=== PATIENT | female | born 1980 | race Caucasian/White ===

== ENCOUNTER 2022-03-26 12:39 | Outpatient (CLI) | payer MEDICAID, SELFPAY ==
--- NOTE | 2022-03-26 14:39 | W.ANESCHARGE ---
Anesthesia Charges Start Date/Time Anesthesia Start Date: 03/26/22 Anesthesia Start Time: 13:47 Stop Date/Time Anesthesia Stop Date: 03/26/22 Anesthesia Stop Time: 14:35 Summary Emergency: No
--- NOTE | 2022-03-26 14:42 | W.ANESCHARGE ---
Anesthesia Charges Start Date/Time Anesthesia Start Date: 03/26/22 Anesthesia Start Time: 13:47 Stop Date/Time Anesthesia Stop Date: 03/26/22 Anesthesia Stop Time: 14:35 Summary Emergency: No
== END 2022-03-26 12:40 | disposition home or self-care (01) ==
PROVIDERS: PCP Family Medicine; Visit Provider Surgery
DX: R19.7 Diarrhea, unspecified (principal); K63.5 Polyp of colon; R11.15 Cyclical vomiting syndrome unrelated to migraine
CPT/HCPCS: 43239; 45380; 45385; 813; 88305; J2704

== ENCOUNTER 2022-06-03 15:34 | Outpatient (CLI) | payer MEDICAID, SELFPAY ==
[2022-06-03 09:24] LABS: Chloride* 101 mmol/L (96-114)
[2022-06-03 09:25] LABS: Albumin* 4.6 g/dL (3.3-5.0); Potassium* 4.4 mmol/L (3.6-5.1); Sodium* 135 mmol/L (135-149)
[2022-06-03 09:27] LABS: Carbon Dioxide* 25 mmol/L (20-32); Cholesterol* 244 mg/dL (90-199); Creatinine* 0.6 mg/dL (0.5-1.5); Estimated Glomerular Filt Rate 116 ml/min
[2022-06-03 09:28] LABS: Alanine Aminotransferase* 21 U/L (4-35); Alkaline Phosphatase* 62 U/L (40-150); Aspartate Amino Transferase* 30 U/L (12-35); Bilirubin Total* 1.1 mg/dL (0.1-1.5); Blood Urea Nitrogen* 12 mg/dL (5-24); Glucose* 102 mg/dL (60-115); Total Protein* 7.3 g/dL (6.0-8.3); Triglycerides* 176 mg/dL (40-149)
[2022-06-03 09:29] LABS: Calcium* 10.1 mg/dL (8.4-10.6); HDL Cholesterol* 80 mg/dL (>=50); LDL Cholesterol Calculated 129 mg/dL (<100)
[2022-06-03 09:45] LABS: Free T4 Free Thyroxine* 0.71 ng/dL (0.70-1.85)
[2022-06-04 17:03] LABS: Estradiol Premenol Female 30 pg/mL
[2022-06-05 02:31] LABS: Follicle Stimulating Hormone 15.7 IU/L; Vitamin D, 1,25-Dihydroxy 28.4 pg/mL (19.9-79.3)
== END 2022-06-03 15:35 | disposition home or self-care (01) ==
PROVIDERS: PCP Family Medicine; Visit Provider Obstetrics & Gynecology
DX: Z00.00 Encounter for general adult medical examination without abnormal findings (principal); R63.5 Abnormal weight gain; R53.83 Other fatigue; Z13.6 Encounter for screening for cardiovascular disorders
CPT/HCPCS: 80053; 80061; 82652; 82670; 83001; 84439; 84443; 87086

== ENCOUNTER 2022-08-02 13:30 | Outpatient (CLI) | payer MEDICAID, SELFPAY ==
--- NOTE | 2022-08-02 13:45 | CRLHL7_ITS ---
For Patients: As a result of the Century Cures Act, medical imaging exams and procedure reports are released immediately into your electronic medical record. You may view this report before your referring provider. If you have questions, please contact your health care provider. Indication: Prior trauma. Technique: Multiplanar, multisequence MRI of the brain was performed without intravenous contrast. Comparison: CT head 03/31/2021. MRI brain 06/28/2016. Findings: The corpus callosum, optic chiasm, pituitary gland, clivus, brainstem and cerebellum appear intact. The craniocervical junction appears preserved. 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 There is no restricted diffusion. No intracranial hemorrhage. The ventricles are proportionate to the cerebral sulci. The 4th ventricle appears midline. The basal cisterns appear patent. No abnormal extra-axial fluid collection identified. Scattered T2 FLAIR hyperintense foci within the subcortical and periventricular white matter, which are nonspecific. There is no intracranial mass, abnormal mass-effect or midline shift identified. Major intracranial vascular flow voids appear grossly intact. Both globes are preserved. Mild paranasal sinus mucosal disease. Impression: 1. No acute intracranial process. 2. Nonspecific scattered T2 FLAIR hyperintense foci within the subcortical and periventricular white matter. Differential considerations include sequela of migraine headaches or chronic ischemic microvascular disease. Dictated by Freddie Scott MD @ 08/02/2022 3:26:35 PM (Electronically Signed)
== END 2022-08-02 13:31 | disposition home or self-care (01) ==
LOC: MRI 13:31
PROVIDERS: PCP Family Medicine; Visit Provider Family Medicine
DX: R41.89 Other symptoms and signs involving cognitive functions and awareness (principal); F07.81 Postconcussional syndrome
CPT/HCPCS: 70551

== ENCOUNTER 2022-08-07 11:15 | Outpatient (CLI) | payer MEDICAID, SELFPAY ==
--- NOTE | 2022-08-07 11:30 | CRLHL7_ITS ---
For Patients: As a result of the Century Cures Act, medical imaging exams and procedure reports are released immediately into your electronic medical record. You may view this report before your referring provider. If you have questions, please contact your health care provider. BILATERAL SCREENING MAMMOGRAM WITH COMPUTER-AIDED DETECTION AND TOMOSYNTHESIS TECHNIQUE: CC and MLO views were obtained. These mammographic images have been obtained using full-field digital technique. These mammographic images were interpreted with the benefit of computer-aided detection. Breast Tomosynthesis was used in this interpretation. COMPARISON FILM: Baseline. FINDINGS: The breasts are heterogeneously dense, which may obscure small masses IMPRESSION: There is no radiographic evidence for malignancy. ASSESSMENT: BI-RADS Category 1: Negative RECOMMENDATION: Routine screening mammogram in 1 year. A lay language report of this examination will be provided to the patient. Benedict Cuello M.D. Diagnostic Radiologist [email or web address] Transcribed: 3:52 pm DW/Dictated by: Benedict Cuello MD @ 08/07/2022 3:51:00 PM (Electronically Signed)
== END 2022-08-07 11:16 | disposition home or self-care (01) ==
PROVIDERS: PCP Family Medicine; Visit Provider Obstetrics & Gynecology
DX: Z12.39 Encounter for other screening for malignant neoplasm of breast (principal); R92.2 Inconclusive mammogram
CPT/HCPCS: 77063; 77067

== ENCOUNTER 2022-09-23 09:40 | Outpatient (CLI) | payer MEDICAID, SELFPAY | END 2022-09-23 09:41 | disposition home or self-care (01) | LOC: FBOREF 09:41 | PROVIDERS: PCP Family Medicine; Visit Provider Family Medicine | DX: E03.9 Hypothyroidism, unspecified (principal) | CPT/HCPCS: 84443 ==

== ENCOUNTER 2023-04-07 11:54 | Outpatient (CLI) | payer MEDICAID, SELFPAY | END 2023-04-07 11:55 | disposition home or self-care (01) | PROVIDERS: PCP Family Medicine; Visit Provider Family Medicine | DX: E03.9 Hypothyroidism, unspecified (principal) | CPT/HCPCS: 84443 ==

== ENCOUNTER 2023-04-17 12:46 | Outpatient (CLI) | payer MEDICAID, SELFPAY ==
--- NOTE | 2023-04-17 13:00 | CRLHL7_ITS ---
For Patients: As a result of the Century Cures Act, medical imaging exams and procedure reports are released immediately into your electronic medical record. You may view this report before your referring provider. If you have questions, please contact your health care provider. CLINICAL HISTORY: Pelvic pain TECHNIQUE: Real time, grant scale images were acquired of the pelvis using a transabdominal and transvaginal approach. Color Doppler analysis was performed of the ovaries. FINDINGS: The uterus measures 10.7 x 5.5 x 6.4. Endometrium measures 1 cm. Right fundal fibroid measuring 1.8 x 1.4 x 1.6 centimeters right ovary measures 5.8 x 2.4 x 3.2 centimeters. Anechoic right ovarian cysts measuring up to 3.4 centimeters. Normal blood flow to the right ovary by color Doppler. Left ovary measures 2.5 x 2 x 1 x 1.5 centimeters. Normal blood flow to left ovary. Small amount of free fluid in the pelvis. IMPRESSION: Right ovarian cyst measuring up to 3.4 centimeters normal blood flow to both ovaries. Tiny amount of fluid in the pelvis. Dictated by Archana Foster MD @ 04/19/2023 12:23:52 PM (Electronically Signed)
== END 2023-04-17 12:47 | disposition home or self-care (01) ==
LOC: US 12:47
PROVIDERS: PCP Family Medicine; Visit Provider Obstetrics & Gynecology
DX: R10.2 Pelvic and perineal pain (principal); N83.201 Unspecified ovarian cyst, right side; G89.29 Other chronic pain
CPT/HCPCS: 76830; 76856; 87086; 93976

== ENCOUNTER 2023-11-07 08:18 | Outpatient (CLI) | payer MEDICAID, SELFPAY | END 2023-11-07 08:19 | disposition home or self-care (01) | LOC: NFLDREF 08:19 | PROVIDERS: PCP Family Medicine; Visit Provider Family Medicine | DX: E03.9 Hypothyroidism, unspecified (principal) | CPT/HCPCS: 84443 ==

== ENCOUNTER 2024-03-05 09:23 | Outpatient (CLI) | payer MEDICAID, SELFPAY ==
--- OUTSIDE RECORDS SUMMARY | 2024-03-05 09:26 | XMS_ITS | Referral Summary ---
Author Organization [facility] Address [address] [place] [address] Care Team Providers Care Team Sports Sales Associate Name Role Phone No Ref-Primary, Physician Primary Care Provider Lisa Spencer MD Unavailable [phone] Lisa Spencer MD Unavailable [phone] Allergies Active Allergy Reactions Criticality Noted Date Comments No Known Drug Allergy 12/22/2006 Medications Medication Sig Dispensed Refills Start Date End Date Status CHANTIX STARTING MONTH DORA 0.5 MG X 11 & 1 MG X 42 OR MISCIndications:Tob acco use disorder 0.5mg daily for 3 days, then 0.5mg twice daily for 4 days, then 1mg twice daily. Take with food and stop smoking 7 days after treatment begins. 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 Toxic effect of venom(989.5) 02/20/2007 Immunizations Name Administration Dates Next Due HepB 04/21/2006,12/04/2005,10/08/2005 Hepatitis B, Adult 04/21/2006,12/04/2005, 006 Influenza (H1N1) 09/20/2009 Influenza (IIV3) PF 09/20/2009,06/20/2008,2002 Influenza, seasonal, injectable, PF 09/20/2009 TD,PF 7+ (Tenivac) 10/21/2002 TDAP (Adacel,Boostrix) 06/02/2012 Td (Adult), Adsorbed 10/21/2002 Social History Tobacco Use Types Packs/Day Years Used Date Smoking Tobacco: Former Cigarettes 0.3 7 0 09/25/1999 - 09/25/2006 Smokeless Tobacco: Never Tobacco Cessation:Counseling Given: Not Answered Comments:Quit 2-07 PHQ-2 Answer Date Recorded PHQ-2 Score 0 03/17/2023 Adolescent Education Answer Date Record ed Getting School Help Needed Not on file 05/18 Sex and Gender Information Value Date Recorded Sex Assigned at Not on file Gender Identity Not on file Sexual Orientation Not on file Last Filed Vital Signs Vital Sign Reading Time Taken Comments Blood Pressure 114/60 02/20/2007 1:50 PM CDT Pulse 72 02/20/2007 1:50 PM CDT Temperature 36.6 ??C (97.8 ??F) 02/20/2007 1:50 PM CD T Respiratory Rate 14 02/20/2007 1:50 PM CDT Oxygen Saturation - - Inhaled Oxygen Concentration - - Weight 55.2 kg (121 lb 12.8 oz) 02/20/2007 1:50 PM CDT Height 163.8 cm (5' 4.5) 02/20/2007 1:50 PM CDT Body Mass Index 20.58 02/20/2007 1:50 PM CDT Plan of Treatment Not on file Procedures Procedure Name Priority Date/Time Associated Diagnosis Comments T4 FREE Routine 03/11/2023 8:46 AM CDT Other specified hypothyroidism GLUCOSE (EXTERNAL RESULT) Routine 06/03/2022 8:10 AM CDT LIPID PANEL (EXTERNAL RESULT) Routine 06/03/2022 8:10 AM CDT from Last 3 Months or Most Recently Relevant to Health Maintenance Results * T4, free (03/11/2023 8:46 AM CDT) Free T4 1.22 0.90 - 1.70 ng/dL 03/11/2023 3:44 PM CDT [facility] Blood BLOOD SPECIMEN / Unknown Venipuncture / Unknown 03/11/2023 8:46 AM CDT 03/11/2023 8:46 AM CDT Lisa Spencer MD LAB - BLOOD ORDER [facility] Core Lab [address] [facility], [address] [place] [id number], [facility] [phone] * (ABNORMAL) Lipid Panel (External Result) (06/03/2022 8:10 AM CDT) [facility] Cholesterol (External) 244(A) 90 - 199 mg/dL [facility] Triglycerides (External) 176(A) 40 - 149 mg/dL [facility] HDL Cholesterol (External) 80 >=50 mg/dL [facility] LDL Cholesterol Calculated (External) 129(A) <100 mg/dL [facility] Blood 06/03/2022 8:10 AM CDT [facility] - 06/03/2022 8:10 AM CDT [facility] RES[facility] Provider Outside LAB - HIM EXTERNAL R ESULT [facility] [address] [place] [address], [facility] [phone] * (ABNORMAL) Glucose (External Result) (06/03/2022 8:10 AM CDT) [facility] Glucose (External) 102(A) 60 - 115 mg/dL [facility] Blood 06/03/2022 8:10 AM CDT [facility] - 06/03/2022 8:10 AM CDT [facility] RESULT Provider Outside LAB - HIM EXTERNAL R ESULT [facility] [address] [place] [address], [facility] [phone] from Last 3 Months or Most Recently Relevant to Health Maintenance Care Teams Team Sports Sales Associate Relationship Specialty Start Date End Date No Ref-Primary, Physician PCP - General 06/13/22 Lisa Spencer MD [address] [facility] [address] [place] [address] Hospitalist Endocrinology, Diabetes, and Metabolism 06/13/22 Lisa Spencer MD [address] [place], [place] [address] Assigned Endocrinology Provider 10/19/22
--- OUTSIDE RECORDS SUMMARY | 2024-03-05 09:26 | XMS_ITS | Clinical Summary ---
Author Organization [facility] Address [address] [place] [address] Care Team Providers Care Hand Shoes Sewer Name Role Phone No Ref-Primary, Physician Primary Care Provider Lisa Spencer MD Unavailable [phone] Lisa Spencer MD Unavailable Allergies Active Allergy Reactions Criticality Noted Date [...] 02/20/2007 1:50 PM CDT Plan of Treatment Health Maintenance Due Date Last Done Comments ADVANCE CARE PLANNING 1981 ANNUAL REVIEW OF HM ORDERS 1981 MAMMO SCREENING 1981 YEARLY PREVENTIVE VISIT 1981 HIV SCREENING 1996 HEPATITIS C SCREENING 10/29/1999 PAP 2002 DTAP/TDAP/TD IMMUNIZATION (3 - Td or Tdap) 06/02/2022 06/02/2012, 10/21/2002, 10/21/2002 COVID-19 Vaccine ( season) 2023 PHQ-2 (once per calendar year) 2023 03/17/2023, 10/15/2022 TSH W/FREE T4 REFLEX 03/11/2024 03/11/2023, 03/11/2023, 10/22/2022, Additional history exists INFLUENZA VACCINE (Season Ended) 2024 09/20/2009, 09/20/2009, 09/20/2009, Additional history exists GLUCOSE 06/03/2025 06/03/2022, 11/25, 11/18/2004 LIPID 06/03/2027 06/03/2022 HEPATITIS B IMMUNIZATION Completed 006, 04/21/2006, 12/04/2005, Additional history exists HPV IMMUNIZATION Aged Out No longer e ligible based on patient's age to complete this topic IPV IMMUNIZATION Aged Out No longer e ligible based on patient's age to complete this topic MENINGITIS IMMUNIZATION Aged Out No l onger eligible based on patient's age to complete this topic Pneumococcal Vaccine: Pediatrics (0 to 5 Years) and At-Risk Patients (6 to 64 Years) Aged Out No longer eligible based on patient's age to complete this topic RSV MONOCLONAL ANTIBODY Aged Out No l onger eligible based on patient's age to complete this topic Procedures Procedure Name Priority Date/Time Associated Diagnosis [...] - 1.70 ng/dL 03/11/2023 3:44 PM CDT [facility] Blood BLOOD SPECIMEN / Unknown Venipuncture / Unknown 03/11/2023 8:46 AM CDT 03/11/2023 8:46 AM CDT Lisa Spencer MD LAB - BLOOD ORDER [facility] Lab [address] [facility], [address] [address], [facility] [phone] * (ABNORMAL) Lipid Panel (External Result) (06/03/2022 8:10 AM CDT) Cholesterol (External) 244(A) 90 - 199 mg/dL [facility] Triglycerides (External) 176(A) 40 - 149 mg/dL [facility] HDL Cholesterol (External) 80 >=50 mg/dL [facility] LDL Cholesterol Calculated (External) 129(A) <100 mg/dL [facility] Blood 06/03/2022 8:10 AM CDT [facility] - 06/03/2022 8:10 AM CDT [facility] RESULT Provider Outside LAB - HIM EXTERNAL R ESULT [facility] [address] [place] [address], [facility] [phone] * (ABNORMAL) Glucose (External Result) (06/03/2022 8:10 AM CDT) Glucose (External) 102(A) 60 - 115 mg/dL [facility] Blood 06/03/2022 8:10 AM CDT [facility] - 06/03/2022 8:10 AM CDT [facility] Provider Outside LAB - HIM EXTERNAL R ESULT [facility] [address] [place] [address], [facility] [phone] from Last 3 Months or Most Recently Relevant to Health Maintenance Care Teams Hand Shoes Sewer Relationship Specialty Start Date End Date No Ref-Primary, Physician PCP - General 06/13/22 Lisa Spencer MD [address] [facility] [address] [place] [address] Hospitalist Endocrinology, Diabetes, and Metabolism 06/13/22 Lisa Spencer MD [address] [place], [place] [address] Assigned Endocrinology Provider 10/19/22
--- OUTSIDE RECORDS SUMMARY | 2024-03-05 09:27 | XMS_ITS | Clinical Summary ---
Author Organization [employer] [facility] Address [place], [place] [address] Care Team Providers Care Skiver Box Toe Name Role Phone Lola Green David Allen MD Primary Care Provider + Allergies Active Allergy Reactions Criticality Noted Date Comments Dtap-Ipv Component 1 Of 2 (Pf) Myalgia 06/11 severe Medications Medication Sig Dispensed Refills Start Date End Date Status ALPRAZolam (XANAX) 0.5 mg tablet Take 1 tablet by mouth at bedtime if needed. 0 06/11/2019 Active Active Problems Problem Noted Date Diagnosed Date Tibialis tendonitis 04/27/2012 Immunizations Name Administration Dates Next Due Influenza, IIV3 (Age >=3 years) 06/23/2003 Social History Tobacco Use Types Packs/Day Years Used Date Smoking Tobacco: Former Cigarettes Q uit: 05/21/2006 Smokeless Tobacco: Never Tobacco Cessation:Counseling Given: Yes Alcohol Use Standard Drinks/Week Comments Not Asked 0 (1 standard drink = 0.6 oz pur e alcohol) PHQ-2 Answer Date Recorded PHQ-2 Score 2 07/28/2019 Sex and Gender Information Value Date Recorded Sex Assigned at Not on file Gender Identity Not on file Sexual Orientation Not on file Obstetrics History Last Filed Vital Signs Vital Sign Reading Time Taken Comments Blood Pressure 110/76 06/11/2019 3:36 PM CDT Pulse 70 06/11/2019 3:36 PM CDT Temperature 36.9 ??C (98.4 ??F) 04/22/2012 8:08 AM CD T Respiratory Rate - - Oxygen Saturation 96% 06/11/2019 3:36 PM CDT Inhaled Oxygen Concentration - - Weight 77.5 kg (170 lb 12.8 oz) 06/11/2019 3:36 PM CDT Height 164.5 cm (5' 4.76) 06/11/2019 3:36 PM CD T Body Mass Index 28.63 06/11/2019 3:36 PM CDT Plan of Treatment Health Maintenance Due Date Last Done Comments Tdap 1992 HIV for age 15-65 1996 Hepatitis C screening for age 18-79 10/29/1999 Tetanus booster 2001 BMI (ht and wt on same day) for age 18+ 06/11/2020 06/11/2019 Depression screening for age 12+ 07/28/2020 07/28/2019 Pap test for age 21-65 10/24/2022 , 10/25/2019, 11/06/2015, Additional history exists COVID-19 vaccine series ( season) 2023 Influenza for age 9-49 04/25/2024 06/23/2003 Pneumococcal series for age 6-64 Aged Out No longer eligible based on patient's age to complete this topic Procedures Procedure Name Priority Date/Time Associated Diagnosis Comments STOCK DIGGER THIN PREP PAP SCREEN IMAGED Routine 10/25/2019 10:00 AM SENIOR HARDWARE ENGINEER from Last 3 Months or Most Recently Relevant to Health Maintenance Results * STOCK DIGGER THIN PREP PAP SCREEN IMAGED (10/25/2019 10:00 AM SENIOR HARDWARE ENGINEER) Case Report Gynecologic Cytology Report ? Case: [id number] ? Authorizing Provider: ??Jess Lomeli ??Collected: ? 10/25/2019 1000 ? M, MD ? Ordering Location: ? [facility] ?Received: ?10/26/2019 1609 ? First Screen: ?Sg Reddy ? Specimen: ?STOCK DIGGER ThinPrep Vial Screening, Cervical/Vaginal ? 11/02/2019 4:07 PM CDT [facility] INTERPRETATION/ RESULT NEGATIVE FOR INTRAEPITHELIAL LESION OR MALIGNANCY (NIL) (none) 11/02/2019 4:07 PM CDT [facility] IMEN ADEQUACY Satisfactory for evaluation Endocervical component present 11/02/2019 4:07 PM CDT [facility] HPV REQUEST HPV and PAP 11/02/2019 4:07 PM CDT [facility] Date of LMP 10/18/2019 11/02/2019 4:07 PM CDT [facility] Last Pap Date 11/06/2015 11/02/2019 4:07 PM CDT [facility] Additional Information 11/02/2019 4:07 PM CDT [facility] Comment: Interpreted at [facility], Central Laboratory - [address], [place] [address] Automated Review Successful 11/02/2019 4:07 PM CDT [facility] Comment:Specimen processed s uccessfully by automated shredder tender peat device, ThinPrep Imaging System, [employer] ANCILLARY TESTING STOCK DIGGER HPV Ordered, Please see separate report 11/02/2019 4:07 PM CDT [facility] Note The pap test is a screening technique, not a diagnostic procedure. It is used primarily to screen for squamous cancers and precursor lesions. Published studies have shown that it is subject to both false negative and false positive results. The pap test should not be used as the sole means to diagnose or exclude pre-malignant and malignant lesions. 11/02/2019 4:07 PM CDT [facility]-C ENTRAL LABORATORY Other (Cervical/Vagina l) 10/25/2019 10:00 AM SENIOR HARDWARE ENGINEER 10/26/2019 4:09 PM SENIOR HARDWARE ENGINEER Jess Lomeli MD PATHOLOGY/ CYTOLOGY [facility] [address] [place] [address], from Last 3 Months or Most Recently Relevant to Health Maintenance Additional Health Concerns Infection Onset Date Last Indicated Rule-Out C.diff 06/14/2019 06/14/2019 Care Teams Skiver Box Toe Relationship Specialty Start Date End Date Benedict Haider MD [address] [place] [address] PCP - General Family Practice 06/11/19 Lola Cheng 03/30/18
--- OUTSIDE RECORDS SUMMARY | 2024-03-05 09:27 | XMS_ITS | Clinical Summary ---
Author Organization [facility] Address [address] [place] [address] Care Team Providers Care Jump Iron Machine Presser Name Role Phone Gisela Steiner MD Primary Care Provider [phone] Source Comments You are receiving this document as you are listed as the primary care provider,follow-up provider, or the patient has been referred to you for consultation.This is in compliance with the Medicare andOhio[facility] Hospitalca[facility] EHR Incentive Program,which states Providers who transition their patient to another setting of careor provider of care or refers their patient to another provider of care shouldprovide summary care record for each transition of care or referral. [employer] Allergies Active Allergy Reactions Criticality Noted Date Comments Bupropion 12/19/2004 PN: LW Reaction: SHORTNESS OF BREATH Ramelteon Other, see comments High 04/11/2023 Medications Medication Sig Dispensed Refills Start Date End Date Status unknown medication Indications: PN: 09/17/2004 Active unknown medication Indications: PN: 01/09/2005 Active ALPRAZolam (XANAX) 0.5 MG tablet TK 1 T PO QHS PRF LONE LEAD LINEMAN 04/06/2020 Active DULoxetine (CYMBALTA) 60 MG capsule Take 60 mg by mouth daily. Active clindamycin (CLEOCIN T) 1 % external solution Apply 1 mL topically two times a day. 05/15/2022 Active diphenoxylate-atrop ine (LOMOTIL) 2.5-0.025 MG tablet Take 1 Tablet by mouth three times a day as needed. 04/18/2022 Active eszopiclone (LUNESTA) 2 MG tablet Take 2 mg by mouth daily at bedtime. 06/19/2022 Active meclizine (ANTIVERT) 25 MG tablet Take 25 mg by mouth three times a day as needed. 05/15/2022 Active traMADol (ULTRAM) 50 MG tablet Take 50 mg by mouth every 6 hours as needed. 06/19/2022 Active levonorgestrel (MIRENA) 20 MCG/DAY IUD 1 Each by Intrauterine route once. Active levothyroxine (SYNTHROID) 75 MCG tablet Take 1 Tablet (75 mcg) by mouth daily. 09/25/2022 Active naltrexone 1 mg/mL or susp 0.5 mg po nightly for 5 days, then increase by 0.5 mg every 5 days nightly until at 5 mg po nightly 180 mL 1 05/08/2023 Active Active Problems Problem Noted Date Diagnosed Date Anxiety 04/24/2020 Immunizations Name Administration Dates Next Due Flu Vac (3+ yrs) 06/23/2003 Social History Tobacco Use Types Packs/Day Years Used Date Smoking Tobacco: Former Cigarettes Smokeless Tobacco: Never Tobacco Cessation:Counseling Given: Not Answered Alcohol Use Standard Drinks/Week Comments Not Currently 0 (1 standard drink = 0.6 oz pur e alcohol) Sex and Gender Information Value Date Recorded Sex Assigned at Not on file Gender Identity Not on file Sexual Orientation Not on file Last Filed Vital Signs Vital Sign Reading Time Taken Comments Blood Pressure 99/72 09/12/2022 8:59 AM DYE BECK REEL OPERATOR Pulse 85 09/12/2022 8:59 AM DYE BECK REEL OPERATOR Temperature - - Respiratory Rate - - Oxygen Saturation - - Inhaled Oxygen Concentration - - Weight 76.2 kg (168 lb) 09/12/2022 8:59 AM DYE BECK REEL OPERATOR Height 162.6 cm (5' 4) 09/12/2022 8:59 AM DYE BECK REEL OPERATOR Body Mass Index 28.84 09/12/2022 8:59 AM DYE BECK REEL OPERATOR Plan of Treatment Health Maintenance Due Date Last Done Comments Cervical Cancer Screening Due 1981 Hep C Screening (Preventive Services) 1981 Mammogram 1981 HIV Screening (Preventive Services) 1997 Adult Preventive Visit 10/29/1999 HepB (1) 2000 DTaP/Tdap/Td (2 - Tdap) 06/02/2022 06/02/2012, 10/21 COVID-19 Vaccine ( season) 2023 Influenza (#1) 2024 09/20/2009, 08/26, 09/20/2009, Additional history exists Zoster/Shingles (1 of 2) 10/29/2031 HPV Vaccine Aged Out No longer eligi ble based on patient's age to complete this topic HepA Aged Out No longer eligi ble based on patient's age to complete this topic Hib Aged Out No longer eligi ble based on patient's age to complete this topic IPV (Polio) Aged Out No longer eligi ble based on patient's age to complete this topic MCV4 Aged Out No longer eligi ble based on patient's age to complete this topic Pneumococcal Aged Out No longer eligi ble based on patient's age to complete this topic Care Teams Jump Iron Machine Presser Relationship Specialty Start Date End Date Gisela Steiner MD [address] [place] [address] PCP - General 11/27/10
[2024-03-05 12:47] LABS: Chlamydia DNA Amplified* NOT DETECTED (No Detected); GC DNA Amplified* NOT DETECTED (No Detected)
== END 2024-03-05 09:24 | disposition home or self-care (01) ==
PROVIDERS: PCP Family Medicine; Visit Provider Physician Assistant
DX: R35.0 Frequency of micturition (principal); N89.8 Other specified noninflammatory disorders of vagina
CPT/HCPCS: 87086; 87491; 87591

== ENCOUNTER 2024-03-11 12:51 | Outpatient (CLI) | payer MEDICAID, SELFPAY ==
--- OUTSIDE RECORDS SUMMARY | 2024-03-11 12:53 | XMS_ITS | Encounter Summary ---
Author Organization [facility] Address [address] [place] [address] Care Team Providers Care Park Interpreter Name Role Phone No Ref-Primary, Physician Primary Care Provider Lisa Spencer MD Unavailable [phone] Lisa Spencer MD Unavailable [phone] Reason for Referral * Consultation (Emergency: 1-2 Days) - Pending Review Specialty Diagnoses / Procedures Referred By Contbobby t Referred To Contact Urology Diagnoses Other symptoms and signs involving the genitourinary system Frequency of micturition Post-void dribbling Elsa Dennis [place] [address] [place] [address] Referral ID Status Reason Start Date Expiration Date V isits Requested Visits Authorized [id number] Pending Review 03/05/2024 03/05/2025 1 1 Question Answer Referral Type: Urology Reason for Referral: Other My Clinical Question Is: Bladder pain, urinary frequency , dribbling urine Scheduling Instructions: [facility] will call you to coordinate care as prescribed your provider. If you don? t hear from a inbound customer service representative within 2 business days, please call . Comments Referral Transcribed by external fax Provider: ELSA DENNIS affiliated with [place] [id number] [place] [address] VA: No If yes was is the [place] Authorization Number: Phone number: [phone] Fax number: n/a Please be aware that coverage of these services is subject to the terms and limitations of your health insurance plan. Call member services at your health plan with any benefit or coverage questions. [facility] care as prescribed your provider. If you don? t hear from a inbound customer service representative within 2 business days, please call . Encounter Details Date Type Department Care Team (Latest Contact Info) Description 03/05/2024 Transcribe Orders GENERIC EXTERNAL DATA DEPARTMENT Provider, Generic External Data Other symptoms and signs involving the genitourinary system (Primary Dx); Frequency of micturition; Post-void dribbling Social History Tobacco Use Types Packs/Day Years Used Date Smoking Tobacco: Former Cigarettes 0.3 7 0 09/25/1999 - 09/25/2006 Smokeless Tobacco: Never Comments:Quit 2-07 PHQ-2 Answer Date Recorded PHQ-2 Score 0 03/17/2023 Adolescent Education Answer Date Record ed Getting School Help Needed Not on file 05/18 Sex and Gender Information Value Date Recorded Sex Assigned at Not on file Gender Identity Not on file Sexual Orientation Not on file documented as of this encounter Plan of Treatment Upcoming Encounters Date Type Department Care Team (Late st Contact Info) Description 04/09/2024 3:00 PM CDT Office Visit [facility] [address] [place] [address] Esperanza Pratt PA-C [address] [facility] [address] [id number] Scheduled Referrals Name Type Priority Associated Diagnoses Orde r Schedule Adult Urology Embedded Software Development Engineer Referral Referral Emergency: 1-2 Days Other symptoms and signs involving the genitourinary system Frequency of micturition Post-void dribbling Expected: 03/05/2024 (Approximate), Expires: 03/05/2025 documented as of this encounter Visit Diagnoses Diagnosis Other symptoms and signs involving the genitourinary system- Primary Frequency of micturition Urinary frequency Post-void dribbling documented in this encounter Care Teams Park Interpreter Relationship Specialty Start Date End Date No Ref-Primary, Physician PCP - General 06/13/22 Lisa Spencer MD [address] [facility] [address] [place] [address] Hospitalist Endocrinology, Diabetes, and Metabolism 06/13/22 Lisa Spencer MD [address] [place], [place] [address] Assigned Endocrinology Provider 10/19/22 documented as of this encounter
--- OUTSIDE RECORDS SUMMARY | 2024-03-11 12:53 | XMS_ITS | Clinical Summary ---
Author Organization [facility] Address [address] [place] [address] Care Team Providers Care Robot Technician Name Role Phone Gisela Steiner MD Primary Care Provider [phone] Source Comments You are receiving this document as you are listed as the primary care provider,follow-up provider, or the patient has been referred to you for consultation.This is in compliance with the Medicare and[facility] Hospitalca[facility] EHR Incentive Program,which states Providers who transition their patient to another setting of careor provider of care or refers their patient to another provider of care shouldprovide summary care record for each transition of care or referral. [employer] Allergies Active Allergy Reactions Criticality Noted Date Comments Bupropion 12/19/2004 PN: LW Reaction: SHORTNESS OF BREATH Ramelteon Other, see comments High 04/11/2023 Medications Medication Sig Dispensed Refills Start Date End Date Status unknown medication Indications: PN: 09/17/2004 Active unknown medication Indications: PN: 01/09/2005 Active ALPRAZolam (XANAX) 0.5 MG tablet TK 1 T PO QHS PRF CAMPUS [facility] 04/06/2020 Active DULoxetine (CYMBALTA) 60 MG capsule [...] Comments Blood Pressure 99/72 09/12/2022 8:59 AM SUPERVISOR ELECTRONICS INSPECTION Pulse 85 09/12/2022 8:59 AM SUPERVISOR ELECTRONICS INSPECTION Temperature - - Respiratory Rate - - Oxygen Saturation - - Inhaled Oxygen Concentration - - Weight 76.2 kg (168 lb) 09/12/2022 8:59 AM SUPERVISOR ELECTRONICS INSPECTION Height 162.6 cm (5' 4) 09/12/2022 8:59 AM SUPERVISOR ELECTRONICS INSPECTION Body Mass Index 28.84 09/12/2022 8:59 AM SUPERVISOR ELECTRONICS INSPECTION Plan of Treatment Health Maintenance Due Date [...] age to complete this topic Care Teams Robot Technician Relationship Specialty Start Date End Date Gisela Steiner MD [address] [place] [address] PCP - General 11/27/10
--- OUTSIDE RECORDS SUMMARY | 2024-03-11 12:53 | XMS_ITS | Encounter Summary ---
Author Organization [facility] Address [address] [place] [address] Care Team Providers Care Occupational Therapy Professor Name Role Phone No Ref-Primary, Physician Primary Care Provider Lisa Spencer MD Unavailable [phone] Lisa Spencer MD Unavailable [phone] Reason for Visit * Reason Onset Date Comments Appointment 03/05/2024 Emergency Referr al Order Encounter Details Date Type Department Care Team (Late st Contact Info) Description 03/05/[address] [facility] Urology Clinic [address] [place] [address] None Appointment (Emergency Referral Order) Social History Tobacco Use Types Packs/Day Years [...] on file documented as of this encounter Miscellaneous Notes * Telephone Encounter - Clari Smith - 03/05/2024 4:15 PM CDT This encounter is being sent to inform the clinic that this patient has a referral from Elsa Suarez PA-C from [facility] in [place] for the diagnoses of Other symptoms and signs involving the genitourinary system; Frequency of micturition; Post-void dribbling; Bladder pain, urinary frequency, dribbling urine and has requested that this patient be seen within Emergency: 1- 2 Days and/or with Emergency: 1-2 Days. Based on the availability of our provider(s), we are unable to accommodate this request. Were all sites offered this patient? Yes Pt is requesting [place] location please as closest to her home Does scheduling algorithm request to schedule next available? Patient appointment has not been scheduled. Please review the referral request for accommodation and contact the patient. If unable to accommodate, please resubmit a referral and indicate a preferredpartner or affiliate location using Provider Finder or Scheduling Instructions field. Referral Order in [facility] Records in [facility] Records with [facility] in [place] Please review and call Pt to schedule Thank you! documented in this encounter Plan of Treatment Upcoming Encounters Date Type Department Care Team (Late st Contact Info) Description 04/09/2024 3:00 PM CDT Office Visit [facility] [place] [address] [facility] [address] [place] [phone] Esperanza Pratt PA-C [address] [facility] [address] [place], [place] [address] documented as of this encounter Visit Diagnoses Not on filedocumented in this encounter Care Teams Occupational Therapy Professor Relationship Specialty Start Date End Date No Ref-Primary, Physician PCP - General 06/13/22 Lisa Spencer MD [address] [facility] [address] [place], [place] [address] Hospitalist Endocrinology, Diabetes, and Metabolism 06/13/22 Lisa Spencer MD [address] [place], [place] [address] Assigned Endocrinology Provider 10/19/22 documented as of this encounter
--- OUTSIDE RECORDS SUMMARY | 2024-03-11 12:53 | XMS_ITS | Referral Summary ---
Author Organization [facility] Address [address] [place] [address]. [place] [address] Care Team Providers Care Tank Farm Attendant Name Role Phone No Ref-Primary, Physician Primary Care Provider Lisa Spencer MD Unavailable Lisa Spencer MD Unavailable [phone] Encounters Date Type Department Care Team Description 03/05/2024 Medical Correspondence [facility] [address] [place] [address] Scan, Non-Provider 03/05/[address] [facility] Urology Clinic [address] [place] [address] None Appointment (Emergency Referral Order) 03/05/2024 Transcribe Orders GENERIC EXTERNAL DATA DEPARTMENT Provider, Generic External Data Other symptoms and signs involving the genitourinary system (Primary Dx); Frequency of micturition; Post-void dribbling from Last 3 Months Allergies Active Allergy Reactions Criticality Noted Date [...] 02/20/2007 1:50 PM CDT Plan of Treatment Upcoming Encounters Date Type Department Care Team (Late st Contact Info) Description 04/09/2024 3:00 PM CDT Office Visit [facility]rology Clinic [address] [place] [address] Esperanza Pratt PA-C [address] [place], [place] [address] Procedures Procedure Name Priority Date/Time Associated Diagnosis [...] Spencer MD LAB - BLOOD ORDER [facility] [place] Core Lab [address] [facility] [address] Building, Room 3[address] [place] [address], [facility] [phone] * (ABNORMAL) Lipid Panel (External Result) (06/03/2022 8:10 AM CDT) Cholesterol (External) 244(A) 90 - 199 mg/dL [facility] Triglycerides (External) 176(A) 40 - 149 mg/dL [facility] HDL Cholesterol (External) 80 >=50 mg/dL [facility] LDL Cholesterol Calculated (External) 129(A) <100 mg/dL [facility] Blood 06/03/2022 8:10 AM CDT [facility] - 06/03/2022 8:10 AM CDT [facility] RESULT Provider Outside LAB - [facility] EXTERNAL R [facility]ULT [facility] [address] [place] [address], [facility] [phone] * (ABNORMAL) Glucose (External Result) (06/03/2022 8:10 AM CDT) Glucose (External) 102(A) 60 - 115 mg/dL [facility] Blood 06/03/2022 8:10 AM CDT [facility] - 06/03/2022 8:10 AM CDT [facility] RESULT Provider Outside LAB - [facility] EXTERNAL R [facility] [address] [place] [address], [facility] [phone] from Last 3 Months or Most Recently Relevant to Health Maintenance Care Teams Tank Farm Attendant Relationship Specialty Start Date End Date No Ref-Primary, Physician PCP - General 06/13/22 Lisa Spencer MD [address] [facility] [address] [place] [address] Hospitalist Endocrinology, Diabetes, and Metabolism 06/13/22 Lisa Spencer MD [address] [place] [address] 200 [place], [place] [address] Assigned Endocrinology Provider 10/19/22
--- OUTSIDE RECORDS SUMMARY | 2024-03-11 12:53 | XMS_ITS | Encounter Summary ---
Author Organization [place] Address [address] [facility] [place] [address] Care Team Providers Care Director Graphics Name Role Phone No Ref-Primary, Physician Primary Care Provider Lisa Spencer MD Unavailable [phone] Lisa Spencer MD Unavailable [phone] Encounter Details Date Type Department Care Team (Late Contact Info) Description 03/05/2024 Medical Correspondence [facility] [address] [place] [address] Scan, Non-Provider Social History Tobacco Use Types Packs/Day Years [...] Encounters Date Type Department Care Team (Late Contact Info) Description 04/09/2024 3:00 PM CDT Office Visit [facility] Urology Clinic [address] [place] [address] Esperanza Pratt, CHAR [address] [facility] [address] [place] [address] documented as of this encounter Visit Diagnoses Not on filedocumented in this encounter Care Teams Director Graphics Relationship Specialty Start Date End Date No Ref-Primary, Physician PCP - General 06/13/22 Lisa Spencer MD [address] [facility] [address] [place] [address] Hospitalist Endocrinology, Diabetes, and Metabolism 06/13/22 Lisa Spencer MD [address] [place] [address] Assigned Endocrinology Provider 10/19/22 documented as of this encounter
--- OUTSIDE RECORDS SUMMARY | 2024-03-11 12:53 | XMS_ITS | Clinical Summary ---
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 Encounters Date Type Department Care Team Description 03/05/2024 Medical Correspondence [facility] Info Mgmt Sr[facility] [address] [address] Scan, Non-Provider 03/05/2024 Telephone [facility] Urology Clinic [address] [place] [address] None Appointment (Emergency Referral Order) 03/05/2024 Transcribe Orders GENERIC EXTERNAL DATA DEPARTMENT Provider, Generic External Data Other symptoms and signs involving the genitourinary system (Primary Dx); Frequency of micturition; Post-void dribbling from Last 3 Months Immunizations Name Administration Dates Next Due HepB [...] Description 04/09/2024 3:00 PM CDT Office Visit [facility] Urology Clinic [address] [place] [address] Esperanza Pratt PA-C [address] [place] [address] Health Maintenance Due Date Last Done Comments [...] 03/11/2023, 10/22/2022, Additional history exists INFLUENZA VACCINE (#1) 04/25/2024201 0, 09/20/2009, 09/20/2009, Additional history exists GLUCOSE 06/03/2025 06/03/2022, 04/3 , 11/18/2004 LIPID 06/03/2027 06/03/2022 HEPATITIS B IMMUNIZATION [...] MD LAB - BLOOD ORDER [facility] [place] Core Lab [address] [facility], Room [address] [place] [address], [facility] [phone] * (ABNORMAL) Lipid Panel (External Result) (06/03/2022 8:10 AM CDT) Cholesterol (External) 244(A) 90 - 199 mg/dL [facility] Triglycerides (External) 176(A) 40 - 149 mg/dL [facility] HDL Cholesterol (External) 80 >=50 mg/dL [facility] LDL Cholesterol Calculated (External) 129(A) <100 mg/dL [facility] Blood 06/03/2022 8:10 AM CDT [facility] - 06/03/2022 8:10 AM CDT [facility] LAB RESULT Provider Outside LAB - HIM EXTERNAL R ESULT [facility] [address] [place] [address], [facility] [phone] * (ABNORMAL) Glucose (External Result) (06/03/2022 8:10 AM CDT) Glucose (External) 102(A) 60 - 115 mg/dL [facility] Blood 06/03/2022 8:10 AM CDT [facility] - 06/03/2022 8:10 AM CDT [facility] LAB RESULT Provider Outside LAB - [facility] EXTERNAL R ESULT [facility] [address] [place] [address], [facility] [phone] from Last 3 Months or Most Recently Relevant to Health Maintenance Care Teams Hedis Analyst Relationship Specialty Start Date End Date No Ref-Primary, Physician PCP - General 06/13/22 Lisa Spencer MD [address] [place] [address] Hospitalist Endocrinology, Diabetes, and Metabolism 06/13/22 Lisa Spencer MD [address] [place] [address] Assigned Endocrinology Provider 10/19/22
--- OUTSIDE RECORDS SUMMARY | 2024-03-11 12:54 | XMS_ITS | Clinical Summary ---
Author Organization [facility] Address [place], [place] [address] Care Team Providers Care Stereo Equipment Repairer Name Role Phone Peter LolaBenedict Willis MD Primary Care Provider + Allergies Active [...] 07/28/2019 Pap test for age 21-65 10/24/2022 0, 10/25/2019, 11/06/2015, Additional history exists COVID-19 vaccine series ( season) 2023 Influenza for age 9-49 04/25/2024 06/23/2003 Pneumococcal series for age 6-64 Aged Out No longer eligible based on patient's age to complete this topic Procedures Procedure Name Priority Date/Time Associated Diagnosis Comments COMMERCIAL CENTER MANAGER THIN PREP PAP SCREEN IMAGED Routine 10/25/2019 10:00 AM SWITCHBOARD INSTALLER from Last 3 Months or Most Recently Relevant to Health Maintenance Results * COMMERCIAL CENTER MANAGER THIN PREP PAP SCREEN IMAGED (10/25/2019 10:00 AM SWITCHBOARD INSTALLER) Case Report Gynecologic Cytology Report ? Case: [id number] ? Authorizing Provider: ??Jess Lomeli ??Collected: ? 10/25/2019 1000 ? M, MD ? Ordering Location: ? [facility] ?Received: ?10/26/2019 1609 ? First Screen: ?Sg Reddy ? Specimen: ?COMMERCIAL CENTER MANAGER ThinPrep Vial Screening, Cervical/Vaginal ? 11/02/2019 4:07 PM CDT [facility] INTERPRETATION/ RESULT NEGATIVE FOR INTRAEPITHELIAL LESION OR MALIGNANCY (NIL) (none) 11/02/2019 4:07 PM CDT [facility] IMEN ADEQUACY Satisfactory for evaluation Endocervical component present 11/02/2019 4:07 PM CDT [facility] HPV REQUEST HPV and PAP 11/02/2019 4:07 PM CDT [facility] Date of LMP 10/18/2019 11/02/2019 4:07 PM CDT [facility] Last Pap Date 11/06/2015 11/02/2019 4:07 PM CDT [facility] Additional Information 11/02/2019 4:07 PM CDT [facility] Comment: Interpreted at [facility] Central Laboratory - [address], [place] [address] Automated Review Successful 11/02/2019 4:07 PM CDT [facility] Comment:Specimen processed s uccessfully by automated alcoholic counselor device, ThinPrep Imaging System, [employer] ANCILLARY TESTING COMMERCIAL CENTER MANAGER HPV Ordered, Please see separate report 11/02/2019 4:07 PM CDT [facility] Note The pap test [...] and malignant lesions. 11/02/2019 4:07 PM CDT [facility]-C ENTRAL LABORATORY Other (Cervical/Vagina l) 10/25/2019 10:00 AM SWITCHBOARD INSTALLER 10/26/2019 4:09 PM SWITCHBOARD INSTALLER Jess Lomeli MD PATHOLOGY/ CYTOLOGY [facility]-CENTRAL LABORATORY [address] [place] [address], from Last 3 Months or Most Recently Relevant to Health Maintenance Additional Health Concerns Infection Onset Date Last Indicated Rule-Out C.diff 06/14/2019 06/14/2019 Care Teams Stereo Equipment Repairer Relationship Specialty Start Date End Date Benedict Haider MD [address] [place] [address] PCP - General Family Practice 06/11/19 Lola Cheng 03/30/18
--- NOTE | 2024-03-11 13:00 | CRLHL7_ITS ---
For Patients: As a result of the Century Cures Act, medical imaging exams and procedure reports are released immediately into your electronic medical record. You may view this report before your referring provider. If you have questions, please contact your health care provider. INDICATION: Pain in pelvis COMPARISON: none TECHNIQUE: 2D grant scale and color Doppler images were acquired of the pelvis using a transabdominal and transvaginal approach. Power Doppler evaluation of both ovaries also performed. FINDINGS: Heterogeneous fibroid is present on the right within the lower uterine segment measuring 2.6 x 1.7 x 2.2 cm. Uterus measures 8.0 cm in length by 5.5 cm in AP diameter by 6.4 cm in transverse dimension. The myometrium has a mildly heterogeneous echotexture. The endometrial lining measures 5.6 mm in composite thickness. The right ovary measures 3.9 x 2.2 x 2.1 cm in size and the left ovary measures 2.9 x 1.3 x 1.3 cm. The ovaries demonstrate normal arterial and venous blood flow on color Doppler analysis. There are no suspicious fluid collections within the cul-de-sac. Incidental dominant follicle right ovary measures 1.8 cm. Normal power Doppler evaluation of both ovaries. IMPRESSION: No evidence of ovarian torsion or adnexal mass. No excess pelvic free fluid. Dominant follicle right ovary measures 1.8 cm. Right lower uterine segment fibroid measures 2.6 cm. Dictated by Benedict Cuello MD @ 03/12/2024 6:39:44 AM (Electronically Signed)
== END 2024-03-11 12:52 | disposition home or self-care (01) ==
LOC: US 12:52
PROVIDERS: PCP Family Medicine; Visit Provider Physician Assistant
DX: R10.2 Pelvic and perineal pain (principal); N83.01 Follicular cyst of right ovary
CPT/HCPCS: 76830; 76856; 93976

== ENCOUNTER 2024-03-26 09:03 | Outpatient (CLI) | payer MEDICAID, SELFPAY ==
--- OUTSIDE RECORDS SUMMARY | 2024-03-26 09:05 | XMS_ITS | Clinical Summary ---
Author Organization [place] Address [address] [place] [address] Care Team Providers Care Photolithographic Stripper Name Role Phone No Ref-Primary, Physician Primary Care Provider Lisa Spencer MD Unavailable Lisa Spencer MD Unavailable [phone] Allergies Active Allergy Reactions Criticality Noted Date [...] Department Care Team Description 03/05/2024 Medical Correspondence [facility] Info Mgmt [facility] [address] [address] Scan, Non-Provider 03/05/[address] [facility] Urology Clinic [address] [place] [address] None Appointment (Emergency Referral Order) [...] 04/09/2024 3:00 PM CDT Office Visit [facility] [address] [place] [address] Esperanza Pratt PA-C [address] [place] [address] Health Maintenance Due Date Last Done Comments [...] MD LAB - BLOOD ORDER [facility] [place] [facility] [address] [facility], Room 3[address] [place] [address], [place] [phone] * (ABNORMAL) Lipid Panel (External Result) (06/03/2022 8:10 AM CDT) Cholesterol (External) 244(A) 90 - 199 mg/dL [facility] Triglycerides (External) 176(A) 40 - 149 mg/dL [facility] HDL Cholesterol (External) 80 >=50 mg/dL [facility] LDL Cholesterol Calculated (External) 129(A) <100 mg/dL [facility] Blood 06/03/2022 8:10 AM CDT [facility] - 06/03/2022 8:[address] [facility] LAB RESULT Provider Outside LAB - HIM EXTERNAL R ESULT [facility] [address] [place] [address], [place] [phone] * (ABNORMAL) Glucose (External Result) (06/03/2022 8:10 AM CDT) Glucose (External) 102(A) 60 - 115 mg/dL [facility] Blood 06/03/2022 8:10 AM CDT [facility] - 06/03/2022 8:[address] [facility] LAB RESULT Provider Outside LAB - [facility] EXTERNAL R ESULT [facility] [address] [place] [address], [place] [phone] from Last 3 Months or Most Recently Relevant to Health Maintenance Care Teams Photolithographic Stripper Relationship Specialty Start Date End Date No Ref-Primary, Physician PCP - General 06/13/22 Lisa Spencer MD [address] [place] [address] Hospitalist Endocrinology, Diabetes, and Metabolism 06/13/22 Lisa Spencer MD [address] [place] [address] Assigned Endocrinology Provider 10/19/22
--- OUTSIDE RECORDS SUMMARY | 2024-03-26 09:05 | XMS_ITS | Clinical Summary ---
Author Organization [facility] Address [address] [place] [address] Care Team Providers Care Smelter Charger Name Role Phone Gisela Steiner MD Primary Care Provider [phone] Source Comments You are receiving this document as you are listed as the primary care provider,follow-up provider, or the patient has been referred to you for consultation.This is in compliance with the Medicare and[facility] EHR Incentive Program,which states Providers who transition their patient to another setting of careor provider of care or refers their patient to another provider of care shouldprovide summary care record for each transition of care or referral. Mobile Medical Testing Allergies Active Allergy Reactions Criticality Noted Date Comments Bupropion 12/19/2004 PN: LW Reaction: SHORTNESS OF BREATH Ramelteon Other, see comments High 04/11/2023 Medications Medication Sig Dispensed Refills Start Date End Date Status unknown medication Indications: PN: 09/17/2004 Active unknown medication Indications: PN: 01/09/2005 Active ALPRAZolam (XANAX) 0.5 MG tablet TK 1 T PO QHS PRF ACTIVE DIRECTORY ARCHITECT 04/06/2020 Active DULoxetine (CYMBALTA) 60 MG capsule [...] Comments Blood Pressure 99/72 09/12/2022 8:59 AM MINE DEPUTY Pulse 85 09/12/2022 8:59 AM MINE DEPUTY Temperature - - Respiratory Rate - - Oxygen Saturation - - Inhaled Oxygen Concentration - - Weight 76.2 kg (168 lb) 09/12/2022 8:59 AM MINE DEPUTY Height 162.6 cm (5' 4) 09/12/2022 8:59 AM MINE DEPUTY Body Mass Index 28.84 09/12/2022 8:59 AM MINE DEPUTY Plan of Treatment Health Maintenance Due Date [...] age to complete this topic Care Teams Smelter Charger Relationship Specialty Start Date End Date Gisela Steiner MD [address] [place] [address] PCP - General 11/27/10
--- OUTSIDE RECORDS SUMMARY | 2024-03-26 09:05 | XMS_ITS | Encounter Summary ---
Author Organization [place] Address [address] [facility] [place] [address] Care Team Providers Care Wedding Coordinator Name Role Phone No Ref-Primary, Physician Primary Care Provider Lisa Spencer MD Unavailable Lisa Spencer MD Unavailable [phone] Encounter Details Date Type Department Care Team (Late Contact Info) Description 03/05/[address] [facility] [address] [place] [address] Scan, Non-Provider Social History Tobacco [...] Description 04/09/2024 3:00 PM CDT Office Visit [facility] [address] [place] [address] Esperanza Pratt, CHAR [address] [facility] [address] [place] [address] documented as of this encounter Visit Diagnoses Not on filedocumented in this encounter Care Teams Wedding Coordinator Relationship Specialty Start Date End Date No Ref-Primary, Physician PCP - General 06/13/22 Lisa Spencer MD [address] [facility] [address] [place] [address] Hospitalist Endocrinology, Diabetes, and Metabolism 06/13/22 Lisa Spencer MD [address] [place] [address] Assigned Endocrinology Provider 10/19/22 documented as of this encounter
--- OUTSIDE RECORDS SUMMARY | 2024-03-26 09:05 | XMS_ITS | Clinical Summary ---
Author Organization [employer] [facility] [employer] Address [place], [place] [address] Care Team Providers Care Pull Tab Dealer Name Role Phone Peter LolaBenedict Willis MD [...] Procedure Name Priority Date/Time Associated Diagnosis Comments SENIOR FOREMAN THIN PREP PAP SCREEN IMAGED Routine 10/25/2019 10:00 AM LODGE SALES ASSOCIATE from Last 3 Months or Most Recently Relevant to Health Maintenance Results * SENIOR FOREMAN THIN PREP PAP SCREEN IMAGED (10/25/2019 10:00 AM LODGE SALES ASSOCIATE) Case Report Gynecologic Cytology Report ? Case: [id number] ? Authorizing Provider: ??Jess Lmoeli ??Collected: ? 10/25/2019 1000 ? M, MD ? Ordering Location: ? [facility] ?Received: ?10/26/2019 1609 ? First Screen: ?Sg Reddy ? Specimen: ?SENIOR FOREMAN ThinPrep Vial Screening, Cervical/Vaginal ? 11/02/2019 4:07 PM CDT [facility] INTERPRETATION/ RESULT NEGATIVE FOR INTRAEPITHELIAL LESION OR MALIGNANCY (NIL) (none) 11/02/2019 4:07 PM CDT [facility] IMEN ADEQUACY Satisfactory for evaluation Endocervical component present 11/02/2019 4:07 PM CDT [facility] HPV REQUEST HPV and PAP 11/02/2019 4:07 PM CDT [facility] Date of LMP 10/18/2019 11/02/2019 4:07 PM CDT [facility] Last Pap Date 11/06/2015 11/02/2019 4:07 PM CDT [facility] Additional Information 11/02/2019 4:07 PM CDT [facility] Comment: Interpreted at [facility], Central Laboratory - [address], [place] [address] Automated Review Successful 11/02/2019 4:07 PM CDT [facility] Comment:Specimen processed s uccessfully by automated music store manager device, ThinPrep Imaging System, [employer] ANCILLARY TESTING SENIOR FOREMAN HPV Ordered, Please see separate report 11/02/2019 4:07 PM CDT [facility] Note The pap test [...] and malignant lesions. 11/02/2019 4:07 PM CDT [facility] [employer] LABORATORY-C ENTRAL LABORATORY Other (Cervical/Vagina l) 10/25/2019 10:00 AM LODGE SALES ASSOCIATE 10/26/2019 4:09 PM LODGE SALES ASSOCIATE Jess Lomeli MD PATHOLOGY/ CYTOLOGY [facility] [employer] LABORATORY-CENTRAL LABORATORY [address] [place] [address], from Last 3 Months or Most Recently Relevant to Health Maintenance Additional Health Concerns Infection Onset Date Last Indicated Rule-Out C.diff 06/14/2019 06/14/2019 Care Teams Pull Tab Dealer Relationship Specialty Start Date End Date Benedict Haider MD [address] [place] [address] PCP - General Family Practice 06/11/19 Lola Cheng 03/30/18
--- OUTSIDE RECORDS SUMMARY | 2024-03-26 09:05 | XMS_ITS | Encounter Summary ---
Author Organization [facility] Address [address] [place] [address] Care Team Providers Care Application Security Specialist Name Role Phone No Ref-Primary, Physician Primary Care Provider Lisa Spencer MD Unavailable [phone] Lisa Spencer MD Unavailable [phone] Reason for Visit * Reason Onset Date Comments Appointment 03/05/2024 Emergency Referr al Order Encounter Details Date Type Department Care Team (Late st Contact Info) Description 03/05/2024 Telephone [facility] [address] [place] [address] None Appointment (Emergency Referral Order) [...] a referral from Elsa Suarez PA-C from [facility] in [place] for the diagnoses of Other symptoms and [...] offered this patient? Yes Pt is requesting [place] location please as closest to her home Does scheduling algorithm request to schedule next available? Patient appointment has not been scheduled. Please review the referral request for accommodation and contact the patient. If unable to accommodate, please resubmit a referral and indicate a preferredpartner or affiliate location using Provider Finder or Scheduling Instructions field. Referral Order in [facility] Records in [facility] Records with [facility] in [place] Please review and call Pt to schedule Thank you! documented in this encounter Plan of Treatment Upcoming Encounters Date Type Department Care Team (Late st Contact Info) Description 04/09/2024 3:00 PM CDT Office Visit [facility] [place] [address] [facility] [address] [place] [phone] Esperanza Pratt PA-C [address] [facility] [address] [place], [place] [address] documented as of this encounter Visit Diagnoses Not on filedocumented in this encounter Care Teams Application Security Specialist Relationship Specialty Start Date End Date No Ref-Primary, Physician PCP - General 06/13/22 Lisa Spencer MD [address] [facility] [address] [place], [place] [address] Hospitalist Endocrinology, Diabetes, and Metabolism 06/13/22 Lisa Spencer MD [address] [place], [place] [address] Assigned Endocrinology Provider 10/19/22 documented as of this encounter
--- OUTSIDE RECORDS SUMMARY | 2024-03-26 09:05 | XMS_ITS | Referral Summary ---
Author Organization [place] Address [address] [place] [address]. [place] [address] Care Team Providers Care Voip Engineer Name Role Phone No Ref-Primary, Physician Primary Care Provider Lisa Spencer MD Unavailable Lisa Spencer MD Unavailable [phone] Encounters Date Type Department Care Team Description 03/05/2024 Medical Correspondence [facility] [address] [place] [address] Scan, Non-Provider 03/05/2024 Telephone [facility] [address] [place] [address] None Appointment (Emergency Referral Order) [...] Description 04/09/2024 3:00 PM CDT Office Visit [facility] [address] [place] [address] Esperanza Pratt PA-C [address] [place], [place] [address] Procedures Procedure Name Priority Date/Time Associated Diagnosis [...] Lisa Spencer MD LAB - BLOOD ORDER [facility] [place] [facility] [address] [facility] [address] Building, [address] [place] [address], [facility] [phone] * (ABNORMAL) Lipid Panel (External Result) (06/03/2022 8:10 AM CDT) Cholesterol (External) 244(A) 90 - 199 mg/dL [facility] Triglycerides (External) 176(A) 40 - 149 mg/dL [facility] HDL Cholesterol (External) 80 >=50 mg/dL [facility] LDL Cholesterol Calculated (External) 129(A) <100 mg/dL [facility] Blood 06/03/2022 8:10 AM CDT [facility] - 06/03/2022 8:10 AM CDT [facility] RESULT Provider Outside LAB - [facility] EXTERNAL R ESULT [facility] [address] [place] [address], [facility] [phone] * (ABNORMAL) Glucose (External Result) (06/03/2022 8:10 AM CDT) Glucose (External) 102(A) 60 - 115 mg/dL [facility] Blood 06/03/2022 8:10 AM CDT [facility] - 06/03/2022 8:10 AM CDT [facility] RESULT Provider Outside LAB - [facility] EXTERNAL R ESULT [facility] [address] [place] [address], [facility] [phone] from Last 3 Months or Most Recently Relevant to Health Maintenance Care Teams Voip Engineer Relationship Specialty Start Date End Date No Ref-Primary, Physician PCP - General 06/13/22 Lisa Spencer MD [address] [facility] [address] [place] [address] Hospitalist Endocrinology, Diabetes, and Metabolism 06/13/22 Lisa Spencer MD [address] [place] [address] [address] [place], [place] [address] Assigned Endocrinology Provider 10/19/22
--- OUTSIDE RECORDS SUMMARY | 2024-03-26 09:05 | XMS_ITS | Encounter Summary ---
Author Organization [place] Address [address] [place] [address] Care Team Providers Care Nurse Orthopaedic Name Role Phone No Ref-Primary, Physician Primary Care Provider Lisa Spencer MD Unavailable [phone] Lisa Spencer MD Unavailable [phone] Reason for Referral * Consultation (Emergency: 1-2 Days) - Pending Review Specialty Diagnoses / Procedures Referred By Contbobby lazo Referred To Contact Urology Diagnoses Other symptoms and signs involving the genitourinary system Frequency of micturition Post-void dribbling Elsa Dennis [place] [address] [place] [address] Referral ID Status Reason Start Date Expiration Date V isits Requested Visits Authorized [id number] Pending Review 03/05/2024 03/05/2025 1 1 Question Answer Referral Type: Urology Reason for Referral: Other My Clinical Question Is: Bladder pain, urinary frequency , dribbling urine Scheduling Instructions: [email or web address] [place] will call you to coordinate care as prescribed your provider. If you don? t hear from a public relations representative within 2 business days, please call . Comments Referral Transcribed by external fax Provider: ELSA DENNIS affiliated with [place] [id number] [address] VA: No If yes was is the [facility] Authorization Number: Phone number: [phone] Fax number: n/a Please be aware that coverage of these services is subject to the terms and limitations of your health insurance plan. Call member services at your health plan with any benefit or coverage questions. [facility] [place] will call you to coordinate care as prescribed your provider. If you don? t hear from a public relations representative within 2 business days, please call [...] Description 04/09/2024 3:00 PM CDT Office Visit [facility] [address] [place] [address] Esperanza Pratt PA-C [address] [facility] [address] [address] Scheduled Referrals Name Type Priority Associated Diagnoses Orde r Schedule Adult Urology Rug Repairer Referral Referral Emergency: 1-2 Days Other symptoms and signs involving the genitourinary system Frequency of micturition Post-void dribbling Expected: 03/05/2024 (Approximate), Expires: 03/05/2025 documented as of this encounter Visit Diagnoses Diagnosis Other symptoms and signs involving the genitourinary system- Primary Frequency of micturition Urinary frequency Post-void dribbling documented in this encounter Care Teams Nurse Orthopaedic Relationship Specialty Start Date End Date No Ref-Primary, Physician PCP - General 06/13/22 Lisa Spencer MD [address] [facility] [address] [place] [address] Hospitalist Endocrinology, Diabetes, and Metabolism 06/13/22 Lisa Spencer MD [address] [place], [place] [address] Assigned Endocrinology Provider 10/19/22 documented as of this encounter
--- NOTE | 2024-03-26 09:15 | CRLHL7_ITS ---
For Patients: As a result of the Century Cures Act, medical imaging exams and procedure reports are released immediately into your electronic medical record. You may view this report before your referring provider. If you have questions, please contact your health care provider. BILATERAL SCREENING MAMMOGRAM WITH COMPUTER-AIDED DETECTION AND TOMOSYNTHESIS TECHNIQUE: CC and MLO views were obtained. These mammographic images have been obtained using full-field digital technique. These mammographic images were interpreted with the benefit of computer-aided detection. Breast tomosynthesis was used in this interpretation. COMPARISON FILM: 08/07/22. FINDINGS: The breasts are heterogeneously dense, which may obscure small masses. IMPRESSION: There is no radiographic evidence for malignancy. ASSESSMENT: BI-RADS Category 1: Negative RECOMMENDATION: Routine screening mammogram in 1 year. A lay language report of this examination will be provided to the patient. BENEDICT LANCASTER M.D. Diagnostic Radiologist [email or web address] Transcribed: 1:[address]/Dictated by: Benedict Lancaster MD @ 03/26/2024 11:55:00 AM (Electronically Signed)
== END 2024-03-26 09:04 | disposition home or self-care (01) ==
LOC: MAMMO 09:03
PROVIDERS: PCP Family Medicine; Visit Provider Obstetrics & Gynecology
DX: Z12.31 Encounter for screening mammogram for malignant neoplasm of breast (principal); R92.2 Inconclusive mammogram
CPT/HCPCS: 77063; 77067

== ENCOUNTER 2024-06-04 19:19 | Emergency (ER) | payer MEDICAID, SELFPAY ==
--- OUTSIDE RECORDS SUMMARY | 2024-06-04 19:22 | XMS_ITS | Referral Summary ---
Author Organization [facility] Address [address] [place] [address]. [place] [address] Care Team Providers Care Carpet Finishing Supervisor Name Role Phone No Ref-Primary, Physician Primary Care Provider Lisa Spencer MD Unavailable [phone] Lisa Spencer MD Unavailable [phone] Chaya Osei PA-C Unavailable [phone] Encounters Date Type Department Care Team Description 04/23/2024 MyC Medical Advice [facility] Urology [place] [id number] [place] [address] Chaya Osei PA-C 04/16/2024 Travel 04/16/2024 2:30 PM CDT Office Visit [facility] [place] [id number] [place] [address] Chaya Osei PA-C Urinary frequency (Primary Dx); Mixed incontinence; Cystocele, midline; Rectocele; Uterovaginal prolapse; Dyspareunia in female 04/12/2024 Telephone [facility] Urology [facility] [address] [place] [phone] Chaya Osei PA-C Call Back 04/09/2024 3:30 PM CDT Lab [facility] Laboratory [address] [place] [address] Urethral pain; Pelvic pain in female 04/09/2024 Travel 04/09/2024 3:00 PM CDT Office Visit [facility] [address] [place] [phone] Esperanza Pratt PA-C Cystocele, midline (Primary Dx); Urinary frequency; Urethral pain; Pelvic pain in female 03/05/2024 Medical Correspondence [facility] [address] [place] [address] Scan, Non-Provider 03/05/2024 Telephone [facility] Clinic [address] [address] None Appointment (Emergency Referral Order) 03/05/2024 Transcribe Orders GENERIC EXTERNAL DATA DEPARTMENT Provider, Generic External Data Other symptoms and signs involving the genitourinary system (Primary Dx); Frequency of micturition; Post-void dribbling from Last 3 Months Allergies Active Allergy Reactions Criticality Noted Date Comments No Known Drug Allergy 12/22/2006 Medications Medication Sig Dispensed Refills Start Date End Date Status TRAMADOL & DIETARY MANAGE PROD PO Q6H 10/21/2022 Active levothyroxine (SYNTHROID/LEVOTHROID) 88 MCG tablet Take 1 tablet (88 mcg) by mouth daily 03/17/2023 Active eszopiclone (LUNESTA) 3 MG tablet 03/01/2024 Active Active Problems Problem Noted Date Diagnosed Date Chronic pelvic pain in female 04/09/2024 Fibromyalgia 04/09/2024 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 Gastroesophageal reflux disease 04/09/2024 Hypothyroidism 04/09/2024 Insomnia 04/09/2024 Intermittent palpitations 04/09/2024 Irritable bowel syndrome 04/09/2024 Meniere's disease 04/09/2024 Post concussion syndrome 04/09/2024 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 Anxiety disorder 04/24/2020 Acne vulgaris 04/01/2013 Tibialis tendonitis 04/27/2012 Vitamin D deficiency 09/25/2011 Toxic effect of venom(989.5) 02/20/2007 Immunizations Name [...] PHQ-2 Answer Date Recorded PHQ-2 Score 0 04/16/2024 Adolescent Education Answer Date Record ed Getting School Help Needed Not on file 05/18 Sex and Gender Information Value Date Recorded Sex Assigned at Not on file Gender Identity Not on file Sexual Orientation Not on file Last Filed Vital Signs Vital Sign Reading Time Taken Comments Blood Pressure 107/75 04/16/2024 2:03 PM CDT Pulse 75 04/16/2024 2:03 PM CDT Temperature 36.6 ??C (97.8 ??F) 02/20/2007 1:50 PM CD T Respiratory Rate 14 02/20/2007 1:50 PM CDT Oxygen Saturation 99% 04/16/2024 2:03 PM CDT Inhaled Oxygen Concentration - - Weight 72.6 kg (160 lb) 04/09/2024 2:48 PM CDT Height 162.6 cm (5' 4) 04/09/2024 2:48 PM CDT Body Mass Index 27.46 04/09/2024 2:48 PM CDT Plan of Treatment Upcoming Encounters Date Type Department Care Team (Late st Contact Info) Description 06/29/2024 10:30 AM FOREIGN LANGUAGES PROFESSOR Office Visit [facility] [place] [address] [place] [address] Chaya Osei, PA-C [address] [place] [address] 07/14/2024 3:30 PM FOREIGN LANGUAGES PROFESSOR Office Visit [facility] Clinic [place] [address] [facility] [address] [place] [address] Zuly Ford MD [address] [facility] [address] [place], [place] [address] Procedures Procedure Name Priority Date/Time Associated Diagnosis Comments CO FIT/INSERT INTRAVAG SUPPORT DEVICE/PESSARY Routine 04/16/2024 2:42 PM CDT Cystocele, midline Uterovaginal prolapse UROGENITAL UREAPLASMA AND MYCOPLASMA SPECIES BY PCR Routine 04/09/2024 3:44 PM CDT Urethral pain Pelvic pain in female URINALYSIS MACROSCOPIC Routine 04/09/2024 2:45 PM CDT Urinary frequency CO MEASURE POST-VOID RESIDUAL URINE/BLADDER CAPACITY, US NON-IMAGING Routine 04/09/2024 Urinary frequency T4 FREE Routine 03/11/2023 8:46 AM CDT Other specified hypothyroidism GLUCOSE (EXTERNAL RESULT) Routine 06/03/2022 8:10 AM CDT LIPID PANEL (EXTERNAL RESULT) Routine 06/03/2022 8:10 AM CDT from Last 3 Months or Most Recently Relevant to Health Maintenance Results * Urogenital Ureaplasma and Mycoplasma Species by PCR (04/09/2024 3:44 PM CDT) Ureaplasma parvum by PCR Not Detected 04/13/2024 9:03 AM CDT [facility] Ureaplasma urealyticum by PCR Not Detected 04/13/2024 9:03 AM CDT [facility] Mycoplasma hominis by PCR Not Detected 04/13/2024 9:03 AM CDT [facility] Mycoplasma genitalium by PCR Not Detected 04/13/2024 9:03 AM CDT [employer] Comment: INTERPRETIVE INFORMATION: Urogenital Ureaplasma and ?Mycoplasma Species by PCR A negative result does not rule out the presence of PCR inhibitors in the patient specimen or test-specific nucleic acid in concentrations below the level of detection by this test. This test was developed and its performance characteristics determined by [facility]. It has not been cleared or approved by the US Food and Drug Administration. This test was performed in a CLIA certified laboratory and is intended for clinical purposes. Performed By: [facility] [address] [place] [address] Secondary School Principal: Kendrick Christina MD, PhD CLIA Number: [id number] Urine URINE SPECIMEN / Unknown Non-blood Collection / Unknown 04/09/2024 3:44 PM CDT 04/09/2024 3:44 PM CDT Esperanza Pratt PA-C LAB - MICRO G ENERAL ORDERABLES [facility] [employer] [address] [address], [facility] [phone] * UA without Microscopic [[id number]] (04/09/2024 2:45 PM CDT) Color Urine Yellow Colorless, Straw, Light Yellow, Yellow 04/09/2024 2:59 PM CDT [facility] Appearance Urine Clear Clear 04/09/20 24 2:59 PM CDT [facility] Glucose Urine Negative Negative mg/dL 04/09/2024 2:59 PM CDT [facility] Bilirubin Urine Negative Negative 4 2:59 PM CDT [facility] Ketones Urine Negative Negative mg/dL 04/09/2024 2:59 PM CDT [facility] Specific Bay Urine 1.010 1.003 - 1.035 04/09/2024 2:59 PM CDT [facility] Blood Urine Negative Negative 04/09/2024 2:59 PM CDT [facility] pH Urine 7.0 5.0 - 7.0 04/09/2024 2:59 PM CDT [facility] Protein Albumin Urine Negative Negative mg/dL 04/09/2024 2:59 PM CDT [facility] Urobilinogen Urine 0.2 0.2, 1.0 E.U./dL 04/09/2024 2:59 PM CDT [facility] Nitrite Urine Negative Negative 04/09/2024 2:59 PM CDT [facility] Leukocyte Esterase Urine Negative Negative 04/09/2024 2:59 PM CDT [facility] Urine MID-STREAM URINE SPECIMEN / Unknown Non-blood Collection / Unknown 04/09/2024 2:45 PM CDT 04/09/2024 2:45 PM CDT Esperanza Pratt PA-C LAB - URINE O RDERABLES [facility] [address] [facility]. [address] [place] [address], [facility] [phone] * MEASURE POST-VOID RESIDUAL URINE/BLADDER CAPACITY, US NON-IMAGING (04/09/2024) Residual Volume (RV) (External) 16 Esperanza Pratt PA-C PROCEDURES * T4, free (03/11/2023 8:46 AM CDT) Free T4 1.22 0.90 - 1.70 ng/dL 03/11/2023 3:44 PM CDT [facility] BLOOD SPECIMEN / Unknown Venipuncture / Unknown 03/11/2023 8:46 AM CDT 03/11/2023 8:46 AM CDT Lisa Spencer MD LAB - BLOOD ORDER [facility] [address] [facility], [address] [place] [address], [place] [phone] * (ABNORMAL) Lipid Panel (External Result) (06/03/2022 8:10 AM CDT) Cholesterol (External) 244(A) 90 - 199 mg/dL [facility] Triglycerides (External) 176(A) 40 - 149 mg/dL [facility] HDL Cholesterol (External) 80 >=50 mg/dL [facility] LDL Cholesterol Calculated (External) 129(A) <100 mg/dL [facility] Blood 06/03/2022 8:10 AM CDT [facility] - 06/03/2022 8:[address] [facility] RESULT Provider Outside LAB - [facility] EXTERNAL R ESULT [facility] [address] [place] [address], [facility] [phone] * (ABNORMAL) Glucose (External Result) (06/03/2022 8:10 AM CDT) Glucose (External) 102(A) 60 - 115 mg/dL [facility] Blood 06/03/2022 8:10 AM CDT [facility] - 06/03/2022 8:[address] [facility] RESULT Provider Outside LAB - [facility] EXTERNAL R ESULT [facility] [address] [place] [address], [facility] [phone] from Last 3 Months or Most Recently Relevant to Health Maintenance Care Teams Carpet Finishing Supervisor Relationship Specialty Start Date End Date No Ref-Primary, Physician PCP - General 06/13/22 Lisa Spencer MD [address] [facility] [address] [place] [address] Hospitalist Endocrinology, Diabetes, and Metabolism 06/13/22 Lisa Spencer MD [address] [place] [address] [address] [place], [place] [address] Assigned Endocrinology Provider 10/19/22 Chaya Osei PAMateoC [address] [place] [address] Assigned Surgical Provider 05/17/24
--- OUTSIDE RECORDS SUMMARY | 2024-06-04 19:22 | XMS_ITS | Clinical Summary ---
Author Organization [facility] Address [address] [place] [address] Care Team Providers Care Computer Operations Supervisor Name Role Phone No Ref-Primary, Physician Primary Care Provider Lisa Spencer MD Unavailable Lisa Spencer MD Unavailable Chaya Osei PA-C Unavailable [phone] Allergies Active Allergy Reactions Criticality Noted Date [...] deficiency 09/25/2011 Toxic effect of venom(989.5) 02/20/2007 Encounters Date Type Department Care Team Description 04/23/2024 MyC Medical Advice [facility] Urology [place] [id number] [place] [phone] Chaya Osei PA-C 04/16/2024 2:30 PM CDT Office Visit [facility] Urology [place] [id number] [place] [address] Chaya Osei PA-C Urinary frequency (Primary Dx); Mixed incontinence; Cystocele, midline; Rectocele; Uterovaginal prolapse; Dyspareunia in female 04/16/2024 Travel 04/12/2024 Telephone [facility] Urology [place] [address] [place] [address] Chaya Osei PA-C Call Back 04/09/2024 3:30 PM CDT Lab [facility] Laboratory [address] [place] [address] [address] [place] [address] Urethral pain; Pelvic pain in female 04/09/2024 3:00 PM CDT Office Visit [facility] Urology [address] [place] [address] Esperanza Pratt PA-C Cystocele, midline (Primary Dx); Urinary frequency; Urethral pain; Pelvic pain in female 04/09/2024 Travel 03/05/[address] [facility] [address] [place] [address] Scan, Non-Provider 03/05/2024 Telephone [facility] Urology [address] [place] [address] None Appointment (Emergency Referral Order) [...] st Contact Info) Description 06/29/2024 10:30 AM HYPERBARIC NURSE Office Visit [facility] [place] [address] [place] [address] Chaya Osei, PA-C [address] [place] [address] 07/14/2024 3:30 PM HYPERBARIC NURSE Office Visit [facility]rology Clinic [place] [address] [facility] [address] [place] [address] Zuly Ford MD [address] [facility] [address] [place] [address] Health Maintenance Due Date Last Done Comments ADVANCE CARE PLANNING 1981 ANNUAL REVIEW OF HM ORDERS 1981 MAMMO SCREENING 1981 YEARLY PREVENTIVE VISIT 1981 HIV SCREENING 1996 HEPATITIS C SCREENING 10/29/1999 DTAP/TDAP/TD IMMUNIZATION (3 - Td or Tdap) 06/02/2022 06/02/2012, 10/21/2002, 10/21/2002 PAP 10/24/2022 10/25/2019 TSH W/FREE T4 REFLEX 03/11/2024 03/11/2023, 03/11/2023, 10/22/2022, Additional history exists COVID-19 Vaccine (2023- season) 2024 INFLUENZA VACCINE (#1) 04/25/2024201 0, 09/20/2009, 09/20/2009, Additional history exists GLUCOSE 06/03/2025 06/03/2022, 04/, 11/18/2004 LIPID 06/03/2027 06/03/2022 RSV VACCINE (1 - 1-dose 75+ series) 2056 HEPATITIS B IMMUNIZATION Completed 006, 04/21/2006, 12/04/2005, Additional history exists PHQ-2 (once per calendar year) Completed 04/16/2024, 03/17/2023, 10/15/2022 HPV IMMUNIZATION Aged Out No longer e [...] Procedure Name Priority Date/Time Associated Diagnosis Comments MI FIT/INSERT INTRAVAG SUPPORT DEVICE/PESSARY Routine 04/16/2024 2:42 PM CDT Cystocele, midline Uterovaginal prolapse UROGENITAL UREAPLASMA AND MYCOPLASMA SPECIES BY PCR Routine 04/09/2024 3:44 PM CDT Urethral pain Pelvic pain in female URINALYSIS MACROSCOPIC Routine 04/09/2024 2:45 PM CDT Urinary frequency MI MEASURE POST-VOID RESIDUAL URINE/BLADDER CAPACITY, US NON-IMAGING [...] Detected 04/13/2024 9:03 AM CDT [facility] Comment: INTERPRETIVE INFORMATION: Urogenital Ureaplasma and ?Mycoplasma Species by PCR A negative result does not rule out the presence of PCR inhibitors in the patient specimen or test-specific nucleic acid in concentrations below the level of detection by this test. This test was developed and its performance characteristics determined by [facility]. It has not been cleared or approved by the US Food and Drug Administration. This test was performed in a CLIA certified laboratory and is intended for clinical purposes. Performed By: [facility] [address] [place] [address] Cow Tender: Kendrick Christina MD, PhD CLIA Number: [id number] Urine URINE SPECIMEN / Unknown Non-blood Collection / Unknown 04/09/2024 3:44 PM CDT 04/09/2024 3:44 PM CDT Esperanza Pratt PA-C LAB - MICRO G ENERAL ORDERABLES [employer] [address] [place] [address], [facility] [phone] * UA without Microscopic [[id number]] (04/09/2024 2:45 PM CDT) Color Urine Yellow Colorless, Straw, Light Yellow, Yellow 04/09/2024 2:59 PM CDT [facility] Appearance Urine Clear Clear 04/09/20 24 2:59 PM CDT [facility] Glucose Urine Negative Negative mg/dL 04/09/2024 2:59 PM CDT [facility] Bilirubin Urine Negative Negative 2:59 PM CDT [facility] Ketones Urine Negative Negative mg/dL 04/09/2024 2:59 PM CDT [facility] Specific [place] Urine 1.010 1.003 - 1.035 04/09/2024 2:59 [...] LAB - URINE O RDERABLES [facility] [address] [phone] * MEASURE POST-VOID RESIDUAL URINE/BLADDER CAPACITY, US [...] LAB - BLOOD ORDER [facility] [address] [facility], [address] [address], [facility] [phone] * (ABNORMAL) Lipid Panel (External Result) (06/03/2022 8:10 AM CDT) Cholesterol (External) 244(A) 90 - 199 mg/dL [facility] Triglycerides (External) 176(A) 40 - 149 mg/dL [facility] HDL Cholesterol (External) 80 >=50 mg/dL [facility] LDL Cholesterol Calculated (External) 129(A) <100 mg/dL [facility] Blood 06/03/2022 8:10 AM CDT Narrative [facility] - 06/03/2022 8:10 AM CDT [facility] LAB RESULT Provider Outside LAB - HIM EXTERNAL R ESULT [facility] [address] [place] [address], [facility] [phone] * (ABNORMAL) Glucose (External Result) (06/03/2022 8:10 AM CDT) Glucose (External) 102(A) 60 - 115 mg/dL [facility] Blood 06/03/2022 8:10 AM CDT Narrative [facility] - 06/03/2022 8:10 AM CDT [facility] LAB RESULT Provider Outside LAB - [facility] EXTERNAL R ESULT [facility] [address] [place] [address], [facility] [phone] from Last 3 Months or Most Recently Relevant to Health Maintenance Care Teams Computer Operations Supervisor Relationship Specialty Start Date End Date No Ref-Primary, Physician PCP - General 06/13/22 Lisa Spencer MD [address] [facility] [address] [place] [address] Hospitalist Endocrinology, Diabetes, and Metabolism 06/13/22 Lisa Spencer MD [address] [place] [address] [address] [place] [address] Assigned Endocrinology Provider 10/19/22 Chaya Osei PA-C [address] [place] [address] Assigned Surgical Provider 05/17/24
--- OUTSIDE RECORDS SUMMARY | 2024-06-04 19:23 | XMS_ITS | Encounter Summary ---
Author Organization [facility] Address [address] [place] [address]. [place] [address] Care Team Providers Care Line Construction Supervisor Name Role Phone No Ref-Primary, Physician Primary Care Provider Lisa Spencer MD Unavailable [phone] Lisa Spencer MD Unavailable [phone] Encounter Details Date Type Department Care Team (Latest Contact Info) Description 04/09/2024 Travel Social History Tobacco Use Types Packs/Day Years [...] st Contact Info) Description 06/29/2024 10:30 AM PUTTY AND CAULKING SUPERVISOR Office Visit [facility] Urology Clinic [place] [address] [facility] [address] [place] [address] Chaya Osei PA-C [address] [place] [address] 07/14/2024 3:30 PM PUTTY AND CAULKING SUPERVISOR Office Visit [facility] [place] [address] [facility] [address] [place] [address] Zuly Ford MD [address] [facility] [address] [place] [address] documented as of this encounter Visit Diagnoses Not on filedocumented in this encounter Care Teams Line Construction Supervisor Relationship Specialty Start Date End Date No Ref-Primary, Physician PCP - General 06/13/22 Lisa Spencer MD [address] [facility] [address] [place], [place] [address] Hospitalist Endocrinology, Diabetes, and Metabolism 06/13/22 Lisa Spencer MD [address] [address] [place], [place] [address] Assigned Endocrinology Provider 10/19/22 documented as of this encounter
--- OUTSIDE RECORDS SUMMARY | 2024-06-04 19:23 | XMS_ITS | Encounter Summary ---
Author Organization [facility] Address [address] [place] [address]. [place] [address] Care Team Providers Care Recreation Coordinator Name Role Phone No Ref-Primary, Physician Primary Care Provider Lisa Spencer MD Unavailable [phone] Lisa Spencer MD Unavailable Encounter Details Date Type Department Care Team (Late st Contact Info) Description 04/09/2024 3:30 PM CDT Lab [facility] [address] [facility] [address] [place] [address] Urethral pain; Pelvic pain in female Social History Tobacco Use Types Packs/Day Years [...] st Contact Info) Description 06/29/2024 10:30 AM MITER SAWYER Office Visit [facility] [place] [address] [facility] [address] [place] [phone] Chaya Osei PA-C [address] [place] [address] 07/14/2024 3:30 PM MITER SAWYER Office Visit [facility] [place] [address] [place] [address] Zuly Ford MD [address] [facility] [address] [place], [place] [address] documented as of this encounter Procedures Procedure Name Priority Date/Time Associated Diagnosis Comments UROGENITAL UREAPLASMA AND MYCOPLASMA SPECIES BY PCR Routine 04/09/2024 3:44 PM CDT Urethral pain Pelvic pain in female documented in this encounter Results * Urogenital Ureaplasma and Mycoplasma Species [...] developed and its performance characteristics determined by [facility]. It has not been cleared or approved by the US Food and Drug Administration. This test was performed in a CLIA certified laboratory and is intended for clinical purposes. Performed By: [facility] [address] [place] [address] Production Gear Cutter: Kendrick Christina MD, PhD CLIA Number: [id number] Urine URINE SPECIMEN / Unknown Non-blood Collection / Unknown 04/09/2024 3:44 PM CDT 04/09/2024 3:44 PM CDT Esperanza Pratt PA-C LAB - MICRO G ENERAL ORDERABLES [facility] [address] [place] [address], [facility] [phone] documented in this encounter Visit Diagnoses Diagnosis Urethral pain Other symptoms involving urinary system Pelvic pain in female Unspecified symptom associated with female genital organs documented in this encounter Care Teams Recreation Coordinator Relationship Specialty Start Date End Date No Ref-Primary, Physician PCP - General 06/13/22 Lisa Spencer MD [address] [facility] 200 [place] [address] Hospitalist Endocrinology, Diabetes, and Metabolism 06/13/22 Lisa Spencer MD [address] [address] [place], [place] [address] Assigned Endocrinology Provider 10/19/22 documented as of this encounter
--- OUTSIDE RECORDS SUMMARY | 2024-06-04 19:23 | XMS_ITS | Encounter Summary ---
Author Organization [facility] Address [address] [place] [address]. [place] [address] Care Team Providers Care Utility Mechanic Supervisor Name Role Phone No Ref-Primary, Physician Primary Care Provider Lisa Spencer MD Unavailable [phone] Lisa Spencer MD Unavailable [phone] Chaya Osei PA-C Unavailable Encounter Details Date Type Department Care Team (Late st Contact Info) Description 04/23/2024 MyC Medical Advice [facility] Clinic [place] [address] [place] [address] Chaya Osei, [place] [address] [place] [address] Social History Tobacco Use Types Packs/Day Years [...] st Contact Info) Description 06/29/2024 10:30 AM CHAPERON Office Visit [facility] Clinic [place] [address] [place] [phone] Chaya Osei PA-C [address] [place], [place] [address] 07/14/2024 3:30 PM CHAPERON Office Visit [facility] [place] [address] [place] [phone] Zuly Ford MD [address] [facility] [address] [place], [place] [address] documented as of this encounter Visit Diagnoses Not on filedocumented in this encounter Care Teams Utility Mechanic Supervisor Relationship Specialty Start Date End Date No Ref-Primary, Physician PCP - General 06/13/22 Lisa Spencer MD [address] [facility] [address] [place], [place] [address] Hospitalist Endocrinology, Diabetes, and Metabolism 06/13/22 Lisa Spencer MD [address] [address] [place] [address] Assigned Endocrinology Provider 10/19/22 Chaya Osei PA-C [address] [place], [place] [address] Assigned Surgical Provider 05/17/24 documented as of this encounter
--- OUTSIDE RECORDS SUMMARY | 2024-06-04 19:23 | XMS_ITS | Clinical Summary ---
[facility] Organization [facility] Address [address] [place] [address] Care Team Providers Care Wing Mailer Machine Operator Name Role Phone Gisela Steiner MD Primary Care Provider [phone] Source Comments You are receiving this document as you are listed as the primary care provider,follow-up provider, or the patient has been referred to you for consultation.This is in compliance with the Medicare and[facility] EHR Incentive Program,which states Providers who transition their patient to another setting of careor provider of care or refers their patient to another provider of care shouldprovide summary care record for each transition of care or referral. [employer] Allergies Active Allergy Reactions Criticality Noted Date Comments Bupropion 12/19/2004 PN: LW Reaction: SHORTNESS OF BREATH Ramelteon Other, see comments High 04/11/2023 Medications Medication Sig Dispensed Refills Start Date End Date Status unknown medication Indications: PN: 09/17/2004 Active unknown medication Indications: PN: 01/09/2005 Active ALPRAZolam (XANAX) 0.5 MG tablet TK 1 T PO QHS PRF CONSUMER MARKETING MANAGER 04/06/2020 Active DULoxetine (CYMBALTA) 60 MG capsule [...] Comments Blood Pressure 99/72 09/12/2022 8:59 AM SEO ASSISTANT Pulse 85 09/12/2022 8:59 AM SEO ASSISTANT Temperature - - Respiratory Rate - - Oxygen Saturation - - Inhaled Oxygen Concentration - - Weight 76.2 kg (168 lb) 09/12/2022 8:59 AM SEO ASSISTANT Height 162.6 cm (5' 4) 09/12/2022 8:59 AM SEO ASSISTANT Body Mass Index 28.84 09/12/2022 8:59 AM SEO ASSISTANT Plan of Treatment Health Maintenance Due Date Last Done Comments Cervical Cancer Screening Due 1981 Hep C Screening (Preventive Services) 1981 Mammogram 1981 HIV Screening (Preventive Services) 1997 Adult Preventive Visit 10/29/1999 HepB (1) 2000 DTaP/Tdap/Td (2 - Tdap) 06/02/2022 06/02/2012, 10/21 COVID-19 Vaccine ( season) 2024 Influenza (#1) 2024 09/20/2009, 08/26, 09/20/2009, Additional [...] patient's age to complete this topic RSV Aged Out No longer eligi ble based on patient's age to complete this topic MCV4 Aged Out No longer eligi ble based on patient's age to complete this topic Pneumococcal Aged Out No longer eligi ble based on patient's age to complete this topic Care Teams Wing Mailer Machine Operator Relationship Specialty Start Date End Date Gisela Steiner MD [address] [place] [address] PCP - General 11/27/10
--- OUTSIDE RECORDS SUMMARY | 2024-06-04 19:23 | XMS_ITS | Encounter Summary ---
Author Organization [facility] Address [address] [place] [address]. [place] [address] Care Team Providers Care Workers Compensation Defense Attorney Name Role Phone No Ref-Primary, Physician Primary Care Provider Lisa Spencer MD Unavailable [phone] Lisa Spencer MD Unavailable [phone] Chaya Osei PA-C Unavailable [phone] Reason for Visit * Reason Onset Date Comments Call Back 04/12/2024 Encounter Details Date Type Department Care Team (Late st Contact Info) Description 04/12/2024 Telephone [facility] [place] [id number] [facility] [address] [place] [address] Chaya Osei, PAMateoC [address] [place] [address] Call Back Social History Tobacco Use Types Packs/Day Years [...] encounter Miscellaneous Notes * Telephone Encounter - Naomie Mc LPN - 04/12/2024 9:23 AM CDT LM that we need to reschedule and our team will contact her with a new date * Telephone Encounter - Elana Cruz - 04/12/2024 8:17 AM CDT [facility] Phone Message May a detailed message be left on voicemail: yes Reason for Call: Other: Patient calls about pessary fitting tomorrow. Patient reports that she juststarted her menstrual cycle and is wondering if that will affect her appointment at all. Patient isrequesting a call back. Action Taken: Message routed to: Other: Urology Travel Screening: Not Applicable documented in this encounter Plan of Treatment Upcoming Encounters Date Type Department Care Team (Late st Contact Info) Description 06/29/2024 10:30 AM RESOURCE PROTECTION SPECIALIST Office Visit [facility] [place] [id number] [facility] [address] [place] [phone] Chaya Osei PA-C [address] [place], [place] [address] 07/14/2024 3:30 PM RESOURCE PROTECTION SPECIALIST Office Visit [facility] [place] [id number] [facility] [address] [place] [phone] Zuly Frod MD [address] [facility] [address] [place], [place] [address] documented as of this encounter Visit Diagnoses Not on filedocumented in this encounter Care Teams Workers Compensation Defense Attorney Relationship Specialty Start Date End Date No Ref-Primary, Physician PCP - General 06/13/22 Lisa Spencer MD [address] [facility] [address] [place] [address] Hospitalist Endocrinology, Diabetes, and Metabolism 06/13/22 Lisa Spencer MD [address] [facility] [address] [place] [address] Assigned Endocrinology Provider 10/19/22 Chaya Osei PA-C [address] [place] [address] Assigned Surgical Provider 05/17/24 documented as of this encounter
--- OUTSIDE RECORDS SUMMARY | 2024-06-04 19:23 | XMS_ITS | Encounter Summary ---
Author Organization [facility] Address [address] [place] [address]. [place] [address] Care Team Providers Care Travel Consultant Name Role Phone No Ref-Primary, Physician Primary Care Provider Lisa Spencer MD Unavailable [phone] Lisa Spencer MD Unavailable [phone] Encounter Details Date Type Department Care Team (Latest Contact Info) Description 04/16/2024 Travel Social History Tobacco Use Types Packs/Day [...] st Contact Info) Description 06/29/2024 10:30 AM SENIOR HR BUSINESS PARTNER Office Visit [facility] [place] [address] [facility] [address] [place] [address] Chaya Osei PA-C [address] [place] [address] 07/14/2024 3:30 PM SENIOR HR BUSINESS PARTNER Office Visit [facility] [place] [address] [facility] [address] [place] [address] Zuly Ford MD [address] [facility] [address] [place] [address] documented as of this encounter Visit Diagnoses Not on filedocumented in this encounter Care Teams Travel Consultant Relationship Specialty Start Date End Date No Ref-Primary, Physician PCP - General 06/13/22 Lisa Spencer MD [address] [facility] [address] [place], [place] [address] Hospitalist Endocrinology, Diabetes, and Metabolism 06/13/22 Lisa Spencer MD [address] [address] [place], [place] [address] Assigned Endocrinology Provider 10/19/22 documented as of this encounter
--- OUTSIDE RECORDS SUMMARY | 2024-06-04 19:23 | XMS_ITS | Encounter Summary ---
Author Organization [facility] Address [address] [place] [address]. [place] [address] Care Team Providers Care Coil Builder Name Role Phone No Ref-Primary, Physician Primary Care Provider Lisa Spencer MD Unavailable [phone] Lisa Spencer MD Unavailable [phone] Reason for Visit * Reason Comments Urinary Frequency urethral pain Encounter Details Date Type Department Care Team (Late st Contact Info) Description 04/09/2024 3:00 PM CDT Office Visit [facility] [address] [place] [address] Esperanza Pratt PA-C [address] [facility] [address] [place], [place] [address] Cystocele, midline (Primary Dx); Urinary frequency; Urethral pain; Pelvic pain in female Social [...] on file documented as of this encounter Last Filed Vital Signs Vital Sign Reading Time Taken Comments Blood Pressure 102/60 04/09/2024 2:48 PM CDT Pulse - - Temperature - - Respiratory Rate - - Oxygen Saturation - - Inhaled Oxygen Concentration - - Weight 72.6 kg (160 lb) 04/09/2024 2:48 PM CDT Height 162.6 cm (5' 4) 04/09/2024 2:48 PM CDT Body Mass Index 27.46 04/09/2024 2:48 PM CDT documented in this encounter Patient Instructions * Patient Instructions* Esperanza Pratt PA-C - 04/09/2024 3:00 PM CDT Will plan on sending urine for Ureaplasma and Mycoplasma. If positive, will treat with culture specific antibiotics. You have signs of bladder prolapse. Will try for a pessary fitting with Munira. Plan on cystoscopy with Dr. Ford to evaluate urethra and bladder. Would consider possible pelvic floor PT in the future. Contact us in the interim with questions, concerns, or changes in symptomatology. [phone] documented in this encounter Progress Notes * Esperanza Pratt PA-C - 04/09/2024 3:00 PM CDT Subjective REQUESTING PROVIDER No ref. provider found REASON FOR CONSULT Urethral pain, frequency HISTORY OF PRESENT ILLNESS Ms. Roach is very pleasant 43 year old year old, , female, who presents today for further evaluation recommendations regarding pelvic pain and urethral pain. She also notes that it feels like a knife. Her symptoms started approximately 2 months ago. She denies any significant changes in her life or medical history at that time. She does note that the stabbing pain typically occurs in the urethra. Her bladder hurts in the morning. She did have dysuria, but this is improving. She occasionally has difficulties with urination and a little bit of stress incontinence. She denies urge incontinence, incomplete emptying, dyspareunia, and nocturia. She does note some urgency and frequency although the frequency has improved. Denies any hematuria. She has been told that she has a weak bladder always. No concerns for STDs. Urinalysis within normal limits. Postvoid residual is16 mL. Patient is not wearing any pads she has not tried anything for this. No history of pelvic surgery. Fluid intake includes 3-4 tobacco blender bottle and approximately 2 cups of coffee daily. Does note that she has a retroverted uterus and has fibromyalgia. Outside records are at [place], which we have not received. The following portions of the patient's history were reviewed and updated as appropriate: allergies, current medications, past medical history, past social history, past surgical history, and problemlist. REVIEW OF SYSTEMS Review of Systems Constitutional: Negative for chills and fever. Respiratory: Negative for shortness of breath. Cardiovascular: Negative for chest pain. Gastrointestinal: Negative for nausea and vomiting. Bowel: okay, but have IBS Genitourinary: Positive for difficulty urinating, frequency, pelvic pain and urgency. Negative for dyspareunia and hematuria. Per HPI. 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 Objective PHYSICAL EXAM BP 102/60 Ht 1.626 m (5' 4) Wt 72.6 kg (160 lb) BMI 27.46 kg/m?? Physical Exam Constitutional: Appearance: Normal appearance. HENT: Head: Normocephalic. Nose: Nose normal. Eyes: General: No scleral icterus. Pulmonary: Effort: Pulmonary effort is normal. Abdominal: General: There is no distension. Genitourinary: Comments: Normal-appearing internal and external labia. Normal intact perineal sensation bilaterally. Negative cotton wisp/Q-tip test for vulvodynia. Will estrogenized vaginal tissue. Mild hypermobility of the urethra appreciated, but no stress incontinence elicited with cough or Valsalva. Some firmness in the distal urethra was appreciated. Tender with palpation. Cystocele noted grade 2. Apical appears well supported. Rectocele grade 2-3. Kegel's 3 out of 5, moderate strength. No tenderness with palpation of the levators. Musculoskeletal: General: Normal range of motion. Cervical back: Normal range of motion. Skin: General: Skin is warm and dry. Neurological: General: No focal deficit present. Mental Status: She is alert and oriented to person, place, and time. Psychiatric: Mood and Affect: Mood normal. Behavior: Behavior normal. LABORATORY Recent Labs Lab Test 04/09/24 1445 COLOR Yellow APPEARANCE Clear URINEGLC Negative URINEBILI Negative URINEKETONE Negative SG 1.010 UBLD Negative URINEPH 7.0 PROTEIN Negative UROBILINOGEN 0.2 NITRITE Negative LEUKEST Negative TESTING PVR: 16 mL Assessment & Plan 1. Cystocele, midline 2. Urinary frequency 3. Urethral pain 4. Pelvic pain in female I had the pleasure today of meeting with Ms. Roach to discuss new or onset pelvic discomfort in [place] well as urethral pain. She has noted some mild improvement. She does have a firmness noted on the urethra. Urinalysis does not have signs for infection. We discussed that some of her pressure may be due to bladder prolapse. We could consider a pessary fitting with Munira. She would be amendable to this. Also discussed considering testing for atypical urinary tract infections. If these are positive, treat with culture specific antibiotics. Given the slightly indeterminate finding in the urethra as well as for bladder discomfort, I think it is reasonable for her to undergo a cystoscopy with Dr. Ford. We did consider possible treatment with pelvic floor physical therapy. She would like to hold off on this at this time. We also discussed additional treatment options for urethral discomfort such as compounded occasional steroid cream, pelvic floor physical therapy, and Azo. She would like to thinkabout her options for the time being. Signed by: Esperanza Pratt PA-C 04/09/2024 3:01 PM documented in this encounter Nursing Notes * Ree Marie EMT - 04/09/2024 3:00 PM CDT Chief Complaint Patient presents with Urinary Frequency urethral pain Frequency has been improving lately. Pt having sharp pains in the urethra, feels like her bladder is falling out Pain was bad with urination, but is getting better. Notices discomfort with changing of position, like sitting or standing up. Denies gross hematuria. Has noted some unusual clear discharge. Does state she has noticed a little bit of difficulty urinating. Bladder hurts when she first gets up in the morning. States she's been told she has a Retro-inverted uterus PVR: 16 mL by bladder scan AMADOU Ortiz documented in this encounter Plan of Treatment Upcoming Encounters Date Type Department Care Team (Late st Contact Info) Description 06/29/2024 10:30 AM MIDDLE SCHOOL FOOTBALL COACH Office Visit [facility] [place] [address] [facility] [address] [place] [phone] Chaya Osei PA-C [address] [place], [place] [phone] 07/14/2024 3:30 PM MIDDLE SCHOOL FOOTBALL COACH Office Visit [facility] [place] [address] [facility] [address] [place] [phone] Zuly Ford MD [address] [facility] [address] [place] [address] documented as of this encounter Procedures Procedure Name Priority Date/Time Associated Diagnosis Comments URINALYSIS MACROSCOPIC Routine 04/09/2024 2:45 PM CDT Urinary frequency DC MEASURE POST-VOID RESIDUAL URINE/BLADDER CAPACITY, US NON-IMAGING Routine 04/09/2024 Urinary frequency documented in this encounter Results * Urogenital Ureaplasma and Mycoplasma Species by PCR (04/09/2024 3:44 PM CDT) Ureaplasma parvum by PCR Not Detected 04/13/2024 9:03 AM CDT [facility] Ureaplasma urealyticum by PCR Not Detected 04/13/2024 9:03 AM CDT [facility] Mycoplasma hominis by PCR Not Detected 04/13/2024 9:03 AM CDT [facility] Mycoplasma genitalium by PCR Not Detected 04/13/2024 9:03 AM CDT [employer] [facility] [employer] Comment: INTERPRETIVE INFORMATION: Urogenital Ureaplasma and ?Mycoplasma Species by PCR A negative result does not rule out the presence of PCR inhibitors in the patient specimen or test-specific nucleic acid in concentrations below the level of detection by this test. This test was developed and its performance characteristics determined by [facility]. It has not been cleared or approved by the [place] Food and Drug Administration. This test was performed in a CLIA certified laboratory and is intended for clinical purposes. Performed By: [facility] [address] [place] [address] Envelope Folding Machine Operator: Kendrick Christina MD, PhD CLIA Number: [id number] Urine URINE SPECIMEN / Unknown Non-blood Collection / Unknown 04/09/2024 3:44 PM CDT 04/09/2024 3:44 PM CDT Esperanza Pratt PA-C LAB - MICRO G ENERAL ORDERABLES [facility] [employer] [facility] [address] [place] [address], [facility] [phone] * UA without Microscopic [[id number]] (04/09/2024 2:45 PM CDT) Color Urine Yellow [...] 2:59 PM CDT [facility] Specific [place] Urine 1.010 1.003 - 1.035 04/09/2024 2:59 [...] URINE O RDERABLES [facility] [address] [facility] [place] [id number], [facility] [phone] * MEASURE POST-VOID RESIDUAL URINE/BLADDER CAPACITY, US NON-IMAGING (04/09/2024) Residual Volume (RV) (External) 16 Esperanza Pratt PA-C PROCEDURES documented in this encounter Visit Diagnoses Diagnosis Cystocele, midline- Primary Urinary frequency Urethral pain Other symptoms involving urinary system Pelvic pain in female Unspecified symptom associated with female genital organs documented in this encounter Care Teams Coil Builder Relationship Specialty Start Date End Date No Ref-Primary, Physician PCP - General 06/13/22 Lisa Spencer MD [address] [facility] [address] [place] [address] Hospitalist Endocrinology, Diabetes, and Metabolism 06/13/22 Lisa Spencer MD [address] [place] [address] Assigned Endocrinology Provider 10/19/22 documented as of this encounter
--- OUTSIDE RECORDS SUMMARY | 2024-06-04 19:23 | XMS_ITS | Encounter Summary ---
Author Organization [facility] Address [address] [place] [address]. [place] [address] Care Team Providers Care Bandoleer Straightener Stamper Name Role Phone No Ref-Primary, Physician Primary Care Provider Lisa Spencer MD Unavailable [phone] Lisa Spencer MD Unavailable [phone] Reason for Visit * Reason Comments Other Pessary fitting Encounter Details Date Type Department Care Team (Late st Contact Info) Description 04/16/2024 2:30 PM CDT Office Visit [facility] [address] [place] [address] Chaya Osei, PA-C [address] [place], [place] [address] Urinary frequency (Primary Dx); Mixed incontinence; Cystocele, midline; Rectocele; Uterovaginal prolapse; Dyspareunia in female Social History Tobacco Use Types [...] Pulse 75 04/16/2024 2:03 PM CDT Temperature - - Respiratory Rate - - Oxygen Saturation 99% 04/16/2024 2:03 PM CDT Inhaled Oxygen Concentration - - Weight - - Height - - Body Mass Index - - documented in this encounter Patient Instructions * Patient Instructions* Chaya Osei PA-C - 04/16/2024 2:30 PM CDT Recommend a gluten free fiber supplement and miralax as needed for bowels Recommend starting PT when you can for your pelvic floor Pessary management: - A pessary is a flexible silicone ring that is placed in the vagina to help with vaginal prolapse. - Remove pessary nightly and prior to sexual intercourse. - If unable to remove the pessary or if you don't feel comfortable with removing the pessary on your own, we can remove/clean your pessary every 3 months for you in clinic. - Clean pessary with unscented soap and water once removed. - You can use an over the counter lubricant to help with placing pessary. - It can be normal to have an increase in vaginal discharge with pessary in place. However, if you remove/clean your pessary nightly, this should help with having less discharge. - Contact clinic if develop any vaginal pain, bleeding, or other issues with pessary. - Sometimes when baring down, having a bowel movement, lifting heavy objects the pessary can shift.If this occurs simply use your fingers to push the pessary back up into place. documented in this encounter Progress Notes * Chaya Osei PA-C - 04/16/2024 2:30 PM CDT Urology Clinic Name: [facility] Date of : 1980 Accompanied at today's visit by:self Chief Complaint: prolapse History of Present Illness: April 16, 2024 HISTORY: Last seen Esperanza Martinclaudedonovan on 04/09/24 for consultation for cystocele, urinary frequency, urethral pain, pelvic pain. Her not is not completed. Here today for pessary fitting. Reports feeling pelvic pressure/bulge for some time. Plans to go to PFPT in the near future. Not interested in surgical prolapse repair. Is still interested in pessary. Reports DELFINO and urinary frequency. Sexually active occasionally. Reports last time she had intercourse was painful with thrusting and penetration. Denies incontinence with intercourse. Has a BM daily. Hx of Celiac disease, IBS, hypothyroidism, fibromyalgia,meniere's disease. Former smoker. Patient voices no other concerns at this time. Allergies: Allergies Allergen Reactions No Known Drug Allergy Medications: Current Outpatient Medications Medication Sig Dispense Refill eszopiclone (LUNESTA) 3 MG tablet levothyroxine (SYNTHROID/LEVOTHROID) 88 MCG tablet Take 1 tablet (88 mcg) by mouth daily TRAMADOL & DIETARY MANAGE PROD PO Q6H No current facility-administered medications for this visit. Past Surgical History: History reviewed. No pertinent surgical history. Physical Exam: Vitals: 04/16/24 1403 BP: 107/75 Pulse: 75 SpO2: 99% PSYCH: NAD EYES: EOMI NEURO: AAO x3 : Vulva is normal in appearance. Urethra normal.. No pain along urethra. Negative for JOHANNA with reduction of speculum when instructed to cough but does have some mobility to urethra with cough. No pain to palpation on internal or external exam. Cystocele grade 2. Rectocele grade 3. Uterovaginal prolapse grade 1. Strength 1/5. No obvious masses, lesions, ulcers, bleeding noted on internal or external exam. Pessary ring #5 too large. Fitted with pessary ring #4 vaginally without issues. Added string and taught patient how to place/remove and care for pessary. Unfortunately did not have pessaryring with knob #4 in clinic. LABS: Creatinine Date Value Ref Range Status 12/22/2006 0.83 0.60 - 1.30 mg/dL Final Assessment and Plan: 43 year old is a pleasant female who has pelvic floor dysfunction, cystocele grade 2, rectocele grade 3, constipation, DELFINO, dyspareunia Plan: - recommend gluten free fiber supplement and miralax prn - fitted with pessary ring #4 without issues. Taught how to place/remove and care for pessary. To remove pessary nightly or when has intercourse. - discussed how JOHANNA may change/worsen with pessary in place. Did not have pessary ring #4 with knobavailable at our clinic. - encourage going to PFPT. - If no improvement of bladder symptoms with pessary and PFPT, consider OAB medication and possibleanti-incontinence procedure. - After discussing the assessment and plan with patient, patient verbalizes understanding and agrees to the above plan. All questions answered. 36 minutes spent on the date of the encounter doing chart review, pessary fitting, exam, review of test results, interpretation of tests, patient visit and documentation. Chaya Osei PA-C Urology April 16, 2024 Patient Care Team: No Ref-Primary, Physician as PCP - General Lisa Spencer MD as Hospitalist (Endocrinology, Diabetes, and Metabolism) Lisa Spencer MD as Assigned Endocrinology Provider documented in this encounter Nursing Notes * Tyra Espinoza CMA - 04/16/2024 2:30 PM CDT Pt here for pessary fitting. Janneth Espinoza CMA documented in this encounter Plan of Treatment Upcoming Encounters Date Type Department Care Team (Late st Contact Info) Description 06/29/2024 10:30 AM MEDICAL INFORMATION OFFICER Office Visit [facility] [address] [place] [address] [address] [place] [address] Chaya Osei PA-C [address] [place] [address] 07/14/2024 3:30 PM MEDICAL INFORMATION OFFICER Office Visit [facility] [place] [address] [facility] [address] [place] [address] Zuly Ford MD [address] [address] documented as of this encounter Procedures Procedure Name Priority Date/Time Associated Diagnosis Comments CA FIT/INSERT INTRAVAG SUPPORT DEVICE/PESSARY Routine 04/16/2024 2:42 PM CDT Cystocele, midline Uterovaginal prolapse documented in this encounter Visit Diagnoses Diagnosis Urinary frequency- Primary Mixed incontinence Mixed incontinence urge and stress (male)(female) Cystocele, midline Rectocele Uterovaginal prolapse Uterovaginal prolapse, unspecified Dyspareunia in female documented in this encounter Care Teams Bandoleer Straightener Stamper Relationship Specialty Start Date End Date No Ref-Primary, Physician PCP - General 06/13/22 Lisa Spencer MD [address] [facility] [address] [place] [address] Hospitalist Endocrinology, Diabetes, and Metabolism 06/13/22 Lisa Spencer MD [address] [place], [place] [address] Assigned Endocrinology Provider 10/19/22 documented as of this encounter
--- OUTSIDE RECORDS SUMMARY | 2024-06-04 19:23 | XMS_ITS | Encounter Summary ---
Author Organization [facility] Address [address] [place] [address] Care Team Providers Care Rough Carpenter Name Role Phone No Ref-Primary, Physician Primary Care Provider Lisa Spencer MD Unavailable [phone] Lisa Spencer MD Unavailable [phone] Reason for Referral * Consultation (Emergency: 1-2 Days) - Pending Review Specialty Diagnoses / Procedures Referred By Debra lazo Referred To Contact Urology Diagnoses Other symptoms and signs involving the genitourinary system Frequency of micturition Post-void dribbling Elsa Dennis [place] [address] [place] [address] Referral ID Status Reason Start Date Expiration Date V isits Requested Visits Authorized [id number] Pending Review 03/05/2024 03/05/2025 1 1 Question Answer Referral Type: Urology Reason for Referral: Other My Clinical Question Is: Bladder pain, urinary frequency , dribbling urine Scheduling Instructions: [employer] [facility] will call you to coordinate care as prescribed your provider. If you don? t hear from a business process representative within 2 business days, please call . Comments Referral Transcribed by external fax Provider: ELSA DENNIS affiliated with [place] [id number] [address] [place]: No If yes was is the VA Authorization Number: Phone number: [phone] Fax number: n/a Please be aware that coverage of these services is subject to the terms and limitations of your health insurance plan. Call member services at your health plan with any benefit or coverage questions. [employer] [facility] will call you to coordinate care as prescribed your provider. If you don? t hear from a business process representative within 2 business days, please call [...] st Contact Info) Description 06/29/2024 10:30 AM PIERCING MILL OPERATOR Office Visit [facility] [place] [id number] [facility] [address] [place] [address] Chaya Osei PA-C [address] [place], [place] [address] 07/14/2024 3:30 PM PIERCING MILL OPERATOR Office Visit [facility] [place] [address] [facility] [address] [place] [address] Zuly Ford MD [address] [facility] [address] [place] [address] Scheduled Referrals Name Type Priority Associated Diagnoses Orde r Schedule Adult Urology Button Tufting Machine Operator Referral Referral Emergency: 1-2 Days Other symptoms and signs involving the genitourinary system Frequency of micturition Post-void dribbling Expected: 03/05/2024 (Approximate), Expires: 03/05/2025 documented as of this encounter Visit Diagnoses Diagnosis Other symptoms and signs involving the genitourinary system- Primary Frequency of micturition Urinary frequency Post-void dribbling documented in this encounter Care Teams Rough Carpenter Relationship Specialty Start Date End Date No Ref-Primary, Physician PCP - General 06/13/22 Lisa Spencer MD [address] [facility] [address] [place] [address] Hospitalist Endocrinology, Diabetes, and Metabolism 06/13/22 Lisa Spencer MD [address] [place] [address] [address] [place] [address] Assigned Endocrinology Provider 10/19/22 documented as of this encounter
--- OUTSIDE RECORDS SUMMARY | 2024-06-04 19:23 | XMS_ITS | Encounter Summary ---
Author Organization [facility] Address [facility] [place] [address] Care Team Providers Care Resaw Tailer Name Role Phone No Ref-Primary, Physician Primary Care Provider Lisa Spencer MD Unavailable Lisa Spencer MD Unavailable [phone] Encounter Details Date Type Department Care Team (Late Contact Info) Description 03/05/2024 Medical Correspondence [facility] [address] [place] [address] Scan, Non-Provider Social History Tobacco [...] Department Care Team (Late Contact Info) Description 06/29/2024 10:30 AM TRAPPER ANIMAL Office Visit [facility] [place] [address] [place] [address] Chaya Osei, PASamia [address] [place], [place] [address] 07/14/2024 3:30 PM TRAPPER ANIMAL Office Visit [facility] [place] [address] [place] [address] Zuly Ford MD [address] [facility] [address] [place] [address] documented as of this encounter Visit Diagnoses Not on filedocumented in this encounter Care Teams Resaw Tailer Relationship Specialty Start Date End Date No Ref-Primary, Physician PCP - General 06/13/22 Lisa Spencer MD [address] [facility] [address] [place] [address] Hospitalist Endocrinology, Diabetes, and Metabolism 06/13/22 Lisa Spnecer MD [address] [facility] [address] [place] [address] Assigned Endocrinology Provider 10/19/22 documented as of this encounter
--- OUTSIDE RECORDS SUMMARY | 2024-06-04 19:23 | XMS_ITS | Encounter Summary ---
Author Organization [facility] Address [address] [place] [address]. [place] [address] Care Team Providers Care Research Programmer Name Role Phone No Ref-Primary, Physician Primary Care Provider Lisa Spencer MD Unavailable [phone] Lisa Spencer MD Unavailable [phone] Chaya Osei PA-C Unavailable [phone] Reason for Visit * Reason Onset Date Comments Appointment 03/05/2024 Emergency Referr al Order Encounter Details Date Type Department Care Team (Late st Contact Info) Description 03/05/2024 Telephone [facility] [address] [address] None Appointment (Emergency Referral Order) Social [...] encounter Miscellaneous Notes * Telephone Encounter - ScottyJoni penafran Abad - 03/05/2024 4:15 PM CDT This encounter is being sent to inform the clinic that this patient has a [facility] the [facility] of Other symptoms and [...] offered this patient? Yes Pt is requesting [place] location please as closest to her home Does scheduling algorithm request to schedule next available? Patient appointment has not been scheduled. Please review the referral request for accommodation and contact the patient. If unable to accommodate, please resubmit a referral and indicate a preferredpartner or affiliate location using Provider Finder or Scheduling Instructions field. Referral Order in Epic Records in [facility] Records with [facility] in [place] Please review and call Pt to schedule Thank you! documented in this encounter Plan of Treatment Upcoming Encounters Date Type Department Care Team (Late st Contact Info) Description 06/29/2024 10:30 AM SPARERIBS TRIMMER Office Visit [facility] [place] [address] [facility] [address] [place] [address] Chaya Osei PA-C [address] [place] [address] 07/14/2024 3:30 PM SPARERIBS TRIMMER Office Visit [facility] [place] [address] [facility] [address] [place] [address] Zuly Ford MD [address] [facility] [address] [place], [place] [address] documented as of this encounter Visit Diagnoses Not on filedocumented in this encounter Care Teams Research Programmer Relationship Specialty Start Date End Date No Ref-Primary, Physician PCP - General 06/13/22 Lisa Spencer MD [address] [facility] [address] [place] [address] Hospitalist Endocrinology, Diabetes, and Metabolism 06/13/22 Lisa Spencer MD [address] [address] [place] [address] Assigned Endocrinology Provider 10/19/22 Chaya Osei PAMateoC [address] [place] [address] Assigned Surgical Provider 05/17/24 documented as of this encounter
--- OUTSIDE RECORDS SUMMARY | 2024-06-04 19:23 | XMS_ITS | Continuity of Care Document ---
Author Organization [facility] Address [address] [address] [place] [address] Phone Care Team Providers Care Sexual Assault Response Coordinator Name Role Phone Unavailable Unavailable Unavailable Allergies, Adverse Reactions, Alerts Substance Reaction Status Criticality No Known allergies Medications Medication Instructions Dosage Effective Dates (start - stop) Status Comments Myra 0.15 mg-30 mcg Tab Take one tablet by mouth daily - Active FISH OIL Use as directed with other supplements - Active Procedures Procedure Date Colonoscopy Flex; W/bx 1/mx Ugi Endo; W/bx 1/mx Offic Cons New/estab Mod-hi 60 06 Routine Serum Collection Advance Directives Directive Yes / No Effective Date File Name No Information Encounters Encounter Description Practice Location Reason(s) For Visit Diagnoses Date Provider Providers Copied on Encounter [facility] [place], [address] [address], [place], [place], [id number], [place] tel:[phone] [facility] DiarrheaHiatal HerniaAbdominal Pain, Unspecified 6-200 6 No Information Referring Provider: Blessing Richard MD J, [address] [facility], [place], [address]. tel:[phone] Offic Cons New/estab Mod-hi 60 [facility] [place], [address] [address], [place], [place], [id number], [place] tel:[phone] [facility] DiarrheaNausea AloneAbd Pain Nec/multi Site May- 4-200 6 Sony Mccarthy. [address] [facility], [place], [place], [id number], [place]. tel:[phone] Referring Provider: Blessing Richard MD J, [address], [place], [address]. tel:[phone] Family History Family Member Type Diagnosis Age At Onset No Information Payers Payer name Insurance type Covered libertarian ID Authoriza tion(s) No Information Social History Type Description Quantity Date Captured Comments Sex Female Smoking Status No Information Chief Complaint And Reason For Visit No Information Reason For Referral Reason For Referral No Information History Of Present Illness Encounter Date Complaint History Of Prese nt Illness No Information Functional Status Date Functional Assessmen t No Information Instructions Date Instruction Additional Infor mation No Information Assessments Type Assessment Date No Information Patient Care Teams Name Effective Dates (start - stop) Status Members No Information
--- OUTSIDE RECORDS SUMMARY | 2024-06-04 19:23 | XMS_ITS | Clinical Summary ---
Author Organization [facility] Address [place], [place] [address] Care Team Providers Care Crime Scene Investigator Name Role Phone Peter Lola Benedict Phelps MD Primary Care Provider + Allergies Active [...] history exists COVID-19 vaccine series ( season) 2024 Influenza for age 9-49 04/25/2024 06/23/2003 Pneumococcal series for age 6-64 Aged Out No longer eligible based on patient's age to complete this topic Procedures Procedure Name Priority Date/Time Associated Diagnosis Comments PLANT CYTOLOGIST THIN PREP PAP SCREEN IMAGED Routine 10/25/2019 10:00 AM COMMUNITY MANAGER from Last 3 Months or Most Recently Relevant to Health Maintenance Results * PLANT CYTOLOGIST THIN PREP PAP SCREEN IMAGED (10/25/2019 10:00 AM COMMUNITY MANAGER) Case Report Gynecologic Cytology Report ? Case: [id number] ? Authorizing Provider: ??Jess Lomeli ??Collected: ? 10/25/2019 1000 ? M, MD ? Ordering Location: ? [facility] ?Received: ?10/26/2019 1609 ? First Screen: ?Sg Reddy ? Specimen: ?PLANT CYTOLOGIST ThinPrep Vial Screening, Cervical/Vaginal ? 11/02/2019 4:07 PM CDT [facility] INTERPRETATION/ RESULT NEGATIVE FOR INTRAEPITHELIAL LESION OR MALIGNANCY (NIL) (none) 11/02/2019 4:07 PM CDT [facility] IMEN ADEQUACY Satisfactory for evaluation Endocervical component present 11/02/2019 4:07 PM CDT [facility] HPV REQUEST HPV and PAP 11/02/2019 4:07 PM CDT [facility] Date of LMP 10/18/2019 11/02/2019 4:07 PM CDT [facility] Last Pap Date 11/06/2015 11/02/2019 4:07 PM CDT [facility] Additional Information 11/02/2019 4:07 PM CDT [facility] Comment: Interpreted at [facility] - [address], [place] [address] Automated Review Successful 11/02/2019 4:07 PM CDT [facility] Comment:Specimen processed s uccessfully by automated plant quality manager device, ThinPrep Imaging System, [employer] ANCILLARY TESTING PLANT CYTOLOGIST HPV Ordered, Please see separate report 11/02/2019 4:07 PM CDT [facility] Note The pap test [...] and malignant lesions. 11/02/2019 4:07 PM CDT [facility]AL [facility] Other (Cervical/Vagina l) 10/25/2019 10:00 AM COMMUNITY MANAGER 10/26/2019 4:09 PM COMMUNITY MANAGER Jess Lomeli MD PATHOLOGY/ CYTOLOGY [facility] [address] [place] [address], from Last 3 Months or Most Recently Relevant to Health Maintenance Additional Health Concerns Infection Onset Date Last Indicated Rule-Out C.diff 06/14/2019 06/14/2019 Care Teams Crime Scene Investigator Relationship Specialty Start Date End Date Benedict Haider MD [address] [place] [address] PCP - General Family Practice 06/11/19 Lola Cheng 03/30/18
--- NOTE | 2024-06-04 19:28 | ED.GENADULT ---
HPI - General Adult General Time Seen by Provider: 19:28 <Naomie Nazario MD - Last Filed: 06/04/24 21:54> Date Seen: 06/04/24 <Naomie Nazario MD - Last Filed: 06/04/24 21:54> Chief complaint: Urogenital Problems, Female <Naomie Nazario MD - Last Filed: 06/04/24 21:54> Stated complaint: prolapsed bladder <Naomie Nazario MD - Last Filed: 06/04/24 21:54> Time Seen by Provider: 06/04/24 19:28 <Naomie Nazario MD - Last Filed: 06/04/24 21:54> Source: patient <Naomie Nazario MD - Last Filed: 06/04/24 21:54> Mode of arrival: ambulatory <Naomie Nazario MD - Last Filed: 06/04/24 21:54> Limitations: no limitations <Naomie Nazario MD - Last Filed: 06/04/24 21:54> History of Present Illness HPI narrative: Harika is a 43-year-old female with a known history of cystocele and rectocele, chronic pelvic pain, post COVID chronic fatigue, fibromyalgia anxiety and tobacco use disorder who comes to the emergency room with complaints of pelvic pain. Patient notes that she has been constipated from the use of tramadol earlier in the week even though it was only 2 tablets. She notes that she had a very good bowel movement earlier today but she had the onset of significant pelvic pain after that. She notes that she wanted to avoid any further tramadol and took ibuprofen but it did not seem to help. She denies any dysuria hematuria or fever. She has not had any additional vaginal discharge denies any possibility of or STI. She notes now the pain is radiating into her back. She has not had any vomiting. Patient adamantly denies any recent sexual activity. States that she has an appointment in June to discuss surgical repair. Patient has not been able to feel anything protruding from the vagina. <Naomie Nazario MD - Last Filed: 06/04/24 21:54> Related Data Home medications: Home Medications ?Medication ?Instructions ?Recorded ?Confirmed multivitamin (Daily Multi-Vitamin 1 tab PO QDAY 04/18/22 04/06/24 tablet) Previous Rx's ?Medication ?Instructions ?Recorded meclizine 25 mg tablet 25 mg PO TID PRN dizziness #30 tabs 04/23/23 tizanidine 4 mg tablet 2 - 4 mg (0.5 - 1 x 4 mg) PO BID 11/07/23 PRN muscle spasticity #30 tabs clindamycin phosphate 1 % topical 1 applic topical BID #60 mL 11/09/23 solution tramadol 50 mg tablet 50 mg PO Q8H PRN pain #60 tabs 03/08/24 eszopiclone 3 mg tablet (Lunesta) 3 mg PO QHS #30 tabs 04/28/24 levothyroxine 88 mcg tablet 88 mcg PO QDAY #90 tabs 04/28/24 <Naomie Nazario MD - Last Filed: 06/04/24 21:54> Allergies/adverse reactions: Allergies Allergy/AdvReac Type Severity Reaction Status Date / Time ramelteon [From Rozerem] Allergy Severe profuse Verified 06/04/24 20:54 sweating, tachycardia tetanus and diphtheria Allergy Severe Weakness, Verified 06/04/24 20:54 toxoids sore [From TDVAX] throat, headache, bodyaches, diarrhea, cramps <Naomie Nazario MD - Last Filed: 06/04/24 21:54> Review of Systems Status of ROS: Reports: 10 or more systems reviewed and unremarkable except as noted in History and below <Naomie Nazario MD - Last Filed: 06/04/24 21:54> Const: Denies: fever, chills or fatigue <Naomie Nazario MD - Last Filed: 06/04/24 21:54> Eyes: Denies: change in vision <Naomie Nazario MD - Last Filed: 06/04/24 21:54> ENMT: Denies: throat pain, neck pain, nasal discharge or nasal congestion <Naomie Nazario MD - Last Filed: 06/04/24 21:54> Cardio: Denies: chest pain, swelling of feet/ankles, lightheadedness or shortness of breath with exertion <Naomie Nazario MD - Last Filed: 06/04/24 21:54> Resp: Denies: shortness of breath or cough <Naomie Nazario MD - Last Filed: 06/04/24 21:54> GI: Reports: abdominal pain and constipation; Denies: nausea, vomiting or blood in stool <Naomie Nazario MD - Last Filed: 06/04/24 21:54> : Reports: urinary incontinence (Chronic); Denies: painful urination or urinary frequency <Naomie Nazario MD - Last Filed: 06/04/24 21:54> Musculo: Reports: back pain; Denies: neck pain or extremity pain <Naomie Nazario MD - Last Filed: 06/04/24 21:54> Psych: Reports: anxiety <Naomie Nazario MD - Last Filed: 06/04/24 21:54> Endo: Denies: fatigue <Naomie Nazario MD - Last Filed: 06/04/24 21:54> PFSH PFSH Medical History: Medical History 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 - Myalgic encephalomyelitis/chronic fatigue syndrome (ICD-10) ?U09.9 - Post covid-19 condition, unspecified (ICD-10) Hypothyroidism ?E03.9 - Hypothyroidism, unspecified (ICD-10) Vitamin D deficiency (09/25/11) ?E55.9 - Vitamin D deficiency, unspecified (ICD-10) Tobacco use disorder ?F17.200 - Nicotine dependence, unspecified, uncomplicated (ICD-10) Tension headache ?G44.209 - Tension-type headache, unspecified, not intractable (ICD-10) Post-traumatic subdural hematoma ?S06.5X9A - Traumatic subdural hemorrhage with loss of consciousness of unspecified duration, initial encounter (ICD-10) Meniere's disease (2009) ?H81.09 - Meniere's disease, unspecified ear (ICD-10) Irritable bowel syndrome ?K58.9 - Irritable bowel syndrome without diarrhea (ICD-10) Insomnia ?G47.00 - Insomnia, unspecified (ICD-10) History of fracture of ankle (2010) ?Z87.81 - Personal history of (healed) traumatic fracture (ICD-10) Gastroesophageal reflux disease ?K21.9 - Gastro-esophageal reflux disease without esophagitis (ICD-10) Fibromyalgia ?M79.7 - Fibromyalgia (ICD-10) Concussion ?S06.0X9A - Concussion with loss of consciousness of unspecified duration, initial encounter (ICD-10) Closed head injury with brief loss of consciousness ?S06.9X9A - Unspecified intracranial injury with loss of consciousness of unspecified duration, initial encounter (ICD-10) Anxiety disorder ?F41.9 - Anxiety disorder, unspecified (ICD-10) Acne vulgaris (04/01/13) ?L70.0 - Acne vulgaris (ICD-10) <Naomie Nazario MD - Last Filed: 06/04/24 21:54> Surgical History: Surgical History History of vaginal delivery History of cholecystectomy ?Z90.49 - Acquired absence of other specified parts of digestive tract (ICD-10) <Naomie Nazario MD - Last Filed: 06/04/24 21:54> Family History: Family History Family/Other Breast cancer, Onset Age: 40 Endometriosis Sister Depression Diabetes Fibromyalgia Migraine headache Aunt Diabetes Endometriosis Stroke Father Family history of early CAD, Onset Age: 39 Paternal Grandmother Family history of early CAD, Onset Age: 64 Mother Fibromyalgia Thyroid disease Maternal Grandmother Colon cancer, Onset Age: 55 <Naomie Nazario MD - Last Filed: 06/04/24 21:54> Social History: Social History Narrative: Exercises daily, run, bike etc , 2 girls, 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), 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 Non-smoker, 7-10 pack years Rarely consumes alcohol, 1-2/month What is your current living situation?: I presently have a place to live Problems where you live: no known problems In the past 12 months, utilities in danger of being shut off: no In the past 12 mos, have been you worried that your food would run out before you had money to buy more?: declined to answer In the past 12 mos, the food you bought just didn't last and you didn't have money to buy more?: never true Smoking Status: Former smoker How often does anyone, including family, friends and others, physically hurt you: How often does anyone, including family, friends and others, insult or talk down to you: How often does anyone, including family, friends and others, threaten you with harm: How often does anyone, including family, friends and others, scream or curse at you: Little interest or pleasure in doing things: not at all Feeling down, depressed, or hopeless: nearly every day <Naomie Nazario MD - Last Filed: 06/04/24 21:54> Exam Narrative: Exam Narrative: Harika is alert and oriented. Highly dramatic appearance with shaking and inability to lie back in the bed. States that she is used to pain. External ears eyes nose clear. Heart with a regular rate in the 80s. Lungs are clear bilaterally. Abdomen shows decreased sounds with auscultation. Vaginal exam deferred <Naomie Nazario MD - Last Filed: 06/04/24 21:54> Const: Vital Signs, click to edit/add: Vital Signs - 24 hr 06/04/24 19:29 Temperature 98.1 F Pulse Rate [Pulse Oximeter] 87 Respiratory Rate 20 Blood Pressure [Le ft Upper Arm] 128/91 H Pulse Oximetry 99 Oxygen Delivery Me thod Room Air <Naomie Nazario MD - Last Filed: 06/04/24 21:54> Vital Signs, click to edit/add: Vital Signs - 24 hr 06/04/24 19:29 Temperature 98.1 F Pulse Rate [Pulse Oximeter] 87 Respiratory Rate 20 Blood Pressure [Le ft Upper Arm] 128/91 H Pulse Oximetry 99 Oxygen Delivery Me thod Room Air <Farooq Croft MD - Last Filed: 06/04/24 23:59> Documenting provider has reviewed patient's vital signs: yes <Naomie Nazario MD - Last Filed: 06/04/24 21:54> Course Course ED Course: At this time unable to do a full exam based on patient's being uncomfortable. Have suggested Toradol and Ativan. Patient states muscle relaxers usually did not work for her such as Zanaflex. I did explain that Ativan was benzodiazepine. At this time would like to avoid any narcotic treatment. Will need to do a pelvic exam. I have also ordered a CBC, comprehensive panel, CRP, urinalysis and flat plate and upright x-rays. Differential diagnosis includes but is not limited to vaginal infection, ovarian torsion, constipation, small-bowel obstruction, pain secondary to cystocele. <Naomie Nazario MD - Last Filed: 06/04/24 21:54> Reevaluation(s) Reevaluation #1: Patient did not have relief with Toradol and Ativan. We did a trial of ketamine 20 mg IV piggyback and this did not provide her any relief although objectively she seemed to be improved. Morphine was used in she was able to tolerate going through or abdominal CT for pain out of proportion to exam. Her pain is now radiating into her back and chest. Consideration regarding possibly making constipation worse throughout course of stay. However patient is intolerable to exam based on how she is feeling and thus I do make a decision to use Dilaudid 0.5 mg IV. Following this I am able to do a speculum exam. I do not note any significant abnormalities. However palpating with finger shows very firm posterior vaginal wall. Suspect stool in the rectum. Patient is requesting further pain medications but I am declining at this time pending the CT and ultrasound reads. Have added a urine HCG on to labs today although patient is adamant that she would not be . <Naomie Nazario MD - Last Filed: 06/04/24 21:54> Vital Signs Vital signs: Initial Vital Signs Temperature 98.1 F 06/04/24 19:29 Temperature Source Temporal Artery Scan 06/04/24 19:29 Pulse Rate 87 06/04/24 19:29 Pulse Rhythm Regular 06/04/24 19:29 Pulse Strength 3+ Normal 06/04/24 19:29 Respiratory Rate 20 06/04/24 19:29 Blood Pressure 128/91 H 06/04/24 19:29 Blood Pressure Mean 103 06/04/24 19:29 Blood Pressure Position Sitting 06/04/24 19:29 Pulse Oximetry 99 06/04/24 19:29 Oxygen Delivery Method Room Air 06/04/24 19:29 Vital Signs Temperature 98.1 F 06/04/24 19:29 Pulse Rate 87 06/04/24 19:29 Respiratory Rate 20 06/04/24 19:29 Blood Pressure 128/91 H 06/04/24 19:29 Pulse Oximetry 99 06/04/24 19:29 Oxygen Delivery Method Room Air 06/04/24 19:29 Temperature 98.1 F 06/04/24 19:29 Pulse Rate 87 06/04/24 19:29 Respiratory Rate 20 06/04/24 19:29 Blood Pressure 128/91 H 06/04/24 19:29 Pulse Oximetry 99 06/04/24 19:29 Oxygen Delivery Method Room Air 06/04/24 19:29 <Naomie Nazario MD - Last Filed: 06/04/24 21:54> Initial Vital Signs Temperature 98.1 F 06/04/24 19:29 Temperature Source Temporal Artery Scan 06/04/24 19:29 Pulse Rate 87 06/04/24 19:29 Pulse Rhythm Regular 06/04/24 19:29 Pulse Strength 3+ Normal 06/04/24 19:29 Respiratory Rate 20 06/04/24 19:29 Blood Pressure 128/91 H 06/04/24 19:29 Blood Pressure Mean 103 06/04/24 19:29 Blood Pressure Position Sitting 06/04/24 19:29 Pulse Oximetry 99 06/04/24 19:29 Oxygen Delivery Method Room Air 06/04/24 19:29 Vital Signs Temperature 98.1 F 06/04/24 19:29 Pulse Rate 87 06/04/24 19:29 Respiratory Rate 20 06/04/24 19:29 Blood Pressure 128/91 H 06/04/24 19:29 Pulse Oximetry 99 06/04/24 19:29 Oxygen Delivery Method Room Air 06/04/24 19:29 Temperature 98.1 F 06/04/24 19:29 Pulse Rate 87 06/04/24 19:29 Respiratory Rate 20 06/04/24 19:29 Blood Pressure 128/91 H 06/04/24 19:29 Pulse Oximetry 99 06/04/24 19:29 Oxygen Delivery Method Room Air 06/04/24 19:29 <Farooq Croft MD - Last Filed: 06/04/24 23:59> Medications Administered Medications: Discontinued Medications Generic Name Dose Route Start Last Admin Trade Name Freq PRN Reason Stop Dose Admin Docusate Sodium/Benzocaine 5 ml 06/04/24 22:37 06/04/24 22:53 Docusate Sodium/Benzocaine 5 Ml Enema SD 06/04/24 22:38 5 ml ONCE ONE Administration Hydromorphone HCl 0.5 mg 06/04/24 21:26 06/04/24 21:32 Hydromorphone 0.5 Mg/0.5 Ml Inj IVP 06/04/24 21:27 0.5 mg ONCE ONE Administration Ketamine HCl 20 mg/ Sodium 100.2 mls @ 200.4 mls/hr 06/04/24 20:04 06/04/24 20:48 Chloride IVPB 06/04/24 20:05 Infused ONCE ONE Infusion Ketorolac Tromethamine 15 mg 06/04/24 19:38 06/04/24 19:50 Ketorolac 15 Mg/Ml Inj IVP 06/04/24 19:39 15 mg ONCE ONE Administration Lorazepam 0.5 mg 06/04/24 19:38 06/04/24 19:50 Lorazepam 2 Mg/Ml Inj IVP 06/04/24 19:39 0.5 mg ONCE ONE Administration Morphine Sulfate 4 mg 06/04/24 20:38 06/04/24 20:47 Morphine 4 Mg/Ml Inj IVP 06/04/24 20:39 4 mg ONCE ONE Administration <Naomie Nazario MD - Last Filed: 06/04/24 21:54> Discontinued Medications Generic Name Dose Route Start Last Admin Trade Name Freq PRN Reason Stop Dose Admin Docusate Sodium/Benzocaine 5 ml 06/04/24 22:37 06/04/24 22:53 Docusate Sodium/Benzocaine 5 Ml Enema SD 06/04/24 22:38 5 ml ONCE ONE Administration Hydromorphone HCl 0.5 mg 06/04/24 21:26 06/04/24 21:32 Hydromorphone 0.5 Mg/0.5 Ml Inj IVP 06/04/24 21:27 0.5 mg ONCE ONE Administration Ketamine HCl 20 mg/ Sodium 100.2 mls @ 200.4 mls/hr 06/04/24 20:04 06/04/24 20:48 Chloride IVPB 06/04/24 20:05 Infused ONCE ONE Infusion Ketorolac Tromethamine 15 mg 06/04/24 19:38 06/04/24 19:50 Ketorolac 15 Mg/Ml Inj IVP 06/04/24 19:39 15 mg ONCE ONE Administration Lorazepam 0.5 mg 06/04/24 19:38 06/04/24 19:50 Lorazepam 2 Mg/Ml Inj IVP 06/04/24 19:39 0.5 mg ONCE ONE Administration Morphine Sulfate 4 mg 06/04/24 20:38 06/04/24 20:47 Morphine 4 Mg/Ml Inj IVP 06/04/24 20:39 4 mg ONCE ONE Administration <Farooq Croft MD - Last Filed: 06/04/24 23:59> Medical Decision Making MDM Narrative Medical decision making narrative: 1. Constipation-I do believe this most likely the culprit causing patient's discomfort, but given patient's significant discomfort are currently awaiting CT as well as ultrasound report. Unfortunately I was in a position where patient's pain was out of proportion to exam and needed to consider other possibilities such as bowel obstruction, ovarian torsion and therefore needed to provide pain medication before I could even do an exam. I did start with non narcotics but unfortunately patient pain was not controlled. At this time she has had Toradol, Ativan, ketamine, morphine and now Dilaudid. Currently awaiting official abdominal CT report as well as ultrasound. If indeed the remainder of the studies are devoid of any significant pathology, I have already spoken to patient about the use of Enemeez and a tap water or pink lady enema. She is receptive to this idea. 2. History of cystocele 3. Disposition-this patient will be signed out to my partner Dr. Croft for further disposition. <Naomie Nazario MD - Last Filed: 06/04/24 21:54> 1. Constipation-I do believe this most likely the culprit causing patient's discomfort, but given patient's significant discomfort are currently awaiting CT as well as ultrasound report. Unfortunately I was in a position where patient's pain was out of proportion to exam and needed to consider other possibilities such as bowel obstruction, ovarian torsion and therefore needed to provide pain medication before I could even do an exam. I did start with non narcotics but unfortunately patient pain was not controlled. At this time she has had Toradol, Ativan, ketamine, morphine and now Dilaudid. Currently awaiting official abdominal CT report as well as ultrasound. If indeed the remainder of the studies are devoid of any significant pathology, I have already spoken to patient about the use of Enemeez and a tap water or pink lady enema. She is receptive to this idea. 2. History of cystocele 3. Disposition-this patient will be signed out to my partner Dr. Croft for further disposition. CT results and ultrasound results returned with reassuring findings. She does have a fair amount of stool in her rectum but there are no other findings that are concerning. The patient was reassured with these results and no longer is in significant discomfort. She did receive an Enemeez and a Fleet's enema and did have a small bowel movement. I did describe [id number] treatments for constipation. The patient feels okay to return home with these plans. <Farooq Croft MD - Last Filed: 06/04/24 23:59> Medical Records Medical records reviewed: Yes I reviewed the patient's medical records <Naomie Nazario MD - Last Filed: 06/04/24 21:54> Lab Data Lab results reviewed: Yes I reviewed the patient's lab results <Naomie Nazario MD - Last Filed: 06/04/24 21:54> Labs: Lab Results 06/04/24 06/04/24 Range/Units 19:32 20:25 WBC 9.19 (4.50-11.00) K/uL RBC 4.60 (4.00-5.20) m/uL Hgb 13.6 (12.0-16.0) gm/dL Hct 40.9 (33.0-51.0) % MCV 89 (80-100) fL MCH 30 (26-34) pg MCHC 33 (32-36) gm/dL RDW Coeff of Ese 11.9 (11.5-15.5) % Plt Count 275 (140-440) K/uL Neut % (Auto) 64.8 (42.0-72.0) % Lymph % (Auto) 27.2 (20-44) % [place] % (Auto) 6.3 (0.0-11.0) % Eos % (Auto) 0.9 (0.0-7.0) % Baso % (Auto) 0.7 (0.0-3.0) % Neut # (Auto) 5.96 (1.7-7.0) K/uL Lymph # (Auto) 2.50 (0.90-2.90) K/uL [place] # (Auto) 0.60 (0.00-0.90) K/UL Eos # (Auto) 0.08 (0.00-0.50) K/uL Baso # (Auto) 0.06 (0.00-0.30) K/uL Abs Immat Gran (auto) 0.01 (0.00-0.30) K/uL Imm/Tot Granulo (auto) 0.1 % Sodium 136 (135-149) mmol/L Potassium 3.9 (3.6-5.1) mmol/L Chloride 101 (96-114) mmol/L Carbon Dioxide 24 (20-32) mmol/L Anion Gap 11 (7-15) mEq/L BUN 10 (5-24) mg/dL Creatinine 0.8 (0.5-1.5) mg/dL Estimated Creat Clear 79.11 Estimated GFR 94 ml/min Glucose 91 (60-115) mg/dL Calcium 9.8 (8.4-10.6) mg/dL Total Bilirubin 0.4 (0.1-1.5) mg/dL AST 19 (12-35) U/L ALT 16 (4-35) U/L Alkaline Phosphatase 55 (40-150) U/L C-Reactive Protein < 0.5 L (0.5-1.0) mg/dL Total Protein 7.6 (6.0-8.3) g/dL Albumin 4.7 (3.3-5.0) g/dL Urine Color Yellow (Yellow) Urine Appearance Clear (Clear) Urine pH 8.5 (5.0-8.5) Ur Specific [place] 1.020 (1.000-1.030) Urine Protein Negative (Negative) Urine Glucose (UA) Negative (Negative) Urine Ketones Negative (Negative) Urine Blood Negative (Negative) Urine Nitrite Negative (Negative) Urine Bilirubin Negative (Negative) Urine Urobilinogen 0.2 (0.2-1.0) Ur Leukocyte Esterase Negative (Negative) Urine RBC 0-2 (0-2) Urine WBC 0-2 (0-5) Ur Squamous Epith Cells None (None-Few) Urine Bacteria None (None) Urine HCG, Qual Negative (Negative) <Naomie Nazario MD - Last Filed: 06/04/24 21:54> Lab Results 06/04/24 06/04/24 Range/Units 19:32 20:25 WBC 9.19 (4.50-11.00) K/uL RBC 4.60 (4.00-5.20) m/uL Hgb 13.6 (12.0-16.0) gm/dL Hct 40.9 (33.0-51.0) % MCV 89 (80-100) fL MCH 30 (26-34) pg MCHC 33 (32-36) gm/dL RDW Coeff of Ese 11.9 (11.5-15.5) % Plt Count 275 (140-440) K/uL Neut % (Auto) 64.8 (42.0-72.0) % Lymph % (Auto) 27.2 (20-44) % [place] % (Auto) 6.3 (0.0-11.0) % Eos % (Auto) 0.9 (0.0-7.0) % Baso % (Auto) 0.7 (0.0-3.0) % Neut # (Auto) 5.96 (1.7-7.0) K/uL Lymph # (Auto) 2.50 (0.90-2.90) K/uL [place] # (Auto) 0.60 (0.00-0.90) K/UL Eos # (Auto) 0.08 (0.00-0.50) K/uL Baso # (Auto) 0.06 (0.00-0.30) K/uL Abs Immat Gran (auto) 0.01 (0.00-0.30) K/uL Imm/Tot Granulo (auto) 0.1 % Sodium 136 (135-149) mmol/L Potassium 3.9 (3.6-5.1) mmol/L Chloride 101 (96-114) mmol/L Carbon Dioxide 24 (20-32) mmol/L Anion Gap 11 (7-15) mEq/L BUN 10 (5-24) mg/dL Creatinine 0.8 (0.5-1.5) mg/dL Estimated Creat Clear 79.11 Estimated GFR 94 ml/min Glucose 91 (60-115) mg/dL Calcium 9.8 (8.4-10.6) mg/dL Total Bilirubin 0.4 (0.1-1.5) mg/dL AST 19 (12-35) U/L ALT 16 (4-35) U/L Alkaline Phosphatase 55 (40-150) U/L C-Reactive Protein < 0.5 L (0.5-1.0) mg/dL Total Protein 7.6 (6.0-8.3) g/dL Albumin 4.7 (3.3-5.0) g/dL Urine Color Yellow (Yellow) Urine Appearance Clear (Clear) Urine pH 8.5 (5.0-8.5) Ur Specific [place] 1.020 (1.000-1.030) Urine Protein Negative (Negative) Urine Glucose (UA) Negative (Negative) Urine Ketones Negative (Negative) Urine Blood Negative (Negative) Urine Nitrite Negative (Negative) Urine Bilirubin Negative (Negative) Urine Urobilinogen 0.2 (0.2-1.0) Ur Leukocyte Esterase Negative (Negative) Urine RBC 0-2 (0-2) Urine WBC 0-2 (0-5) Ur Squamous Epith Cells None (None-Few) Urine Bacteria None (None) Urine HCG, Qual Negative (Negative) <Farooq Croft MD - Last Filed: 06/04/24 23:59> Imaging Data Abdominal x-ray: Attestation: I have reviewed the pertinent imaging results. <Naomie Nazario MD - Last Filed: 06/04/24 21:54> My impression: Constipation. No evidence of air-fluid levels. <Naomie Nazario MD - Last Filed: 06/04/24 21:54> Radiologist's impression: Moderate stool burden is seen throughout the colon. Nonobstructive bowel gas pattern. No large pneumoperitoneum. Visualized lung bases are clear. Mild degenerative changes of the bilateral hips. Status post cholecystectomy. Impression: Moderate stool burden is seen throughout the colon. No evidence of bowel obstruction. <Naomie Nazario MD - Last Filed: 06/04/24 21:54> US - abdomen: Attestation: I have reviewed the pertinent imaging results. <Naomie Nazario MD - Last Filed: 06/04/24 21:54> CT scan - abdomen: Attestation: I have reviewed the pertinent imaging results. <Naomie Nazario MD - Last Filed: 06/04/24 21:54> My impression: Significant bout of stool and distended right lower quadrant proximal colon. <Naomie Nazario MD - Last Filed: 06/04/24 21:54> Significant bout of stool and distended right lower quadrant proximal colon. 1. Small volume free fluid in the pelvic cul-de-sac, within the range of physiologic. Otherwise, no acute findings within the abdomen and pelvis. 2. 3.1 cm probable fibroid within the right uterus. 3. Normal appendix. <Farooq Croft MD - Last Filed: 06/04/24 23:59> Discharge Plan Discharge Clinical Impression: Abdominal pain <Naomie Nazario MD - Last Filed: 06/04/24 21:54> Patient Disposition: Home, Self-Care <Naomie Nazario MD - Last Filed: 06/04/24 21:54> Condition: Stable <Naomie Nazario MD - Last Filed: 06/04/24 21:54> Additional Instructions: Use [id number] remedies for constipation as needed and directed. Follow up with MD return if symptoms are worsening. <Naomie Nazario MD - Last Filed: 06/04/24 21:54> Prescriptions: No Action multivitamin [Daily Multi-Vitamin] Tablet 1 tab PO QDAY tizanidine 4 mg tablet 2 - 4 mg PO BID PRN (Reason: muscle spasticity) Qty: 30 1RF tramadol 50 mg tablet 50 mg PO Q8H PRN (Reason: pain) Qty: 60 1RF meclizine 25 mg tablet 25 mg PO TID PRN (Reason: dizziness) Qty: 30 0RF clindamycin phosphate 1 % solution 1 applic topical BID Qty: 60 5RF eszopiclone [Lunesta] 3 mg tablet 3 mg PO QHS Qty: 30 5RF levothyroxine 88 mcg tablet 88 mcg PO QDAY Qty: 90 1RF <Naomie Nazario MD - Last Filed: 06/04/24 21:54> Follow Up/Referrals: Benedict Haider MD [Primary Care Provider] - <Naomie Nazario MD - Last Filed: 06/04/24 21:54> Stand Alone Forms: My[facility] Info Instructions <Naomie Nazario MD - Last Filed: 06/04/24 21:54>
[2024-06-04 19:29] VITALS: BP 128/91; PULSE 87; RESP 20; TEMP 36.7; O2SAT 99; BMI 27.5
--- NOTE | 2024-06-04 19:38 | CRLHL7_ITS ---
For Patients: As a result of the Century Cures Act, medical imaging exams and procedure reports are released immediately into your electronic medical record. You may view this report before your referring provider. If you have questions, please contact your health care provider. Indication: Constipation Technique: One upright view, 2 supine views. Comparison: None. Findings: Moderate stool burden is seen throughout the colon. Nonobstructive bowel gas pattern. No large pneumoperitoneum. Visualized lung bases are clear. Mild degenerative changes of the bilateral hips. Status post cholecystectomy. Impression: Moderate stool burden is seen throughout the colon. No evidence of bowel obstruction. Dictated by Glenroy Mcadams MD @ 06/04/2024 8:28:05 PM (Electronically Signed)
[2024-06-04 19:44] LABS: Basophils Absolute Auto 0.06 K/uL (0.00-0.30); Basophils Percent Auto 0.7 % (0.0-3.0); Eosinophils Absolute Auto 0.08 K/uL (0.00-0.50); Eosinophils Percent Auto 0.9 % (0.0-7.0); Hematocrit 40.9 % (33.0-51.0); Hemoglobin* 13.6 gm/dL (12.0-16.0); Immature Granulocytes Abs Auto 0.01 K/uL (0.00-0.30); Immature Granulocytes Pct Auto 0.1 %; Lymphocytes Percent Auto 27.2 % (20-44); Mean Corpuscular HGB Conc 33 gm/dL (32-36); Mean Corpuscular Hemoglobin 30 pg (26-34); Mean Corpuscular Volume 89 fL (80-100); Monocytes Percent Auto 6.3 % (0.0-11.0); Neutrophils Absolute Auto 5.96 K/uL (1.7-7.0); Neutrophils Percent Auto 64.8 % (42.0-72.0); Platelet Count* 275 K/uL (140-440); RDW Coefficient of Variation % 11.9 % (11.5-15.5); White Blood Count* 9.19 K/uL (4.50-11.00)
[2024-06-04 19:50] LABS: Slide Review Reflex No
[2024-06-04] MEDS: LORazepam 2 MG/ML inj 0.5 MG IVP (19:50)
[2024-06-04] MEDS: KETOROLAC 15 MG/ML inj IVP (19:50)
[2024-06-04 19:56] LABS: Albumin* 4.7 g/dL (3.3-5.0); Chloride* 101 mmol/L (96-114)
[2024-06-04 19:57] LABS: Potassium* 3.9 mmol/L (3.6-5.1); Sodium* 136 mmol/L (135-149)
--- OUTSIDE RECORDS SUMMARY | 2024-06-04 19:57 | XMS_ITS | Encounter Summary ---
Author Organization [place] Address [address] [place] [address]. [place] [address] Care Team Providers Care Spa Consultant Name Role Phone No Ref-Primary, Physician Primary Care Provider Lisa Spencer MD Unavailable [phone] Lisa Spencer MD Unavailable [phone] Chaya Osei PA-C Unavailable Encounter Details Date Type Department Care Team (Late st Contact Info) Description 04/23/2024 MyC Medical Advice [facility] [place] [address] [place] [address] Chaya Osei, [place] [address] [place] [address] Social History Tobacco Use Types [...] st Contact Info) Description 06/29/2024 10:30 AM JAVA TECH LEAD Office Visit [facility] [place] [address] [place] [phone] Chaya Osei PA-C [address] [place], [place] [address] 07/14/2024 3:30 PM JAVA TECH LEAD Office Visit [facility] [place] [address] [place] [phone] Zuly Ford MD [address] [facility] [address] [place], [place] [address] documented as of this encounter Visit Diagnoses Not on filedocumented in this encounter Care Teams Spa Consultant Relationship Specialty Start Date End Date No Ref-Primary, Physician PCP - General 06/13/22 Lisa Spencer MD [address] [facility] 200 [place], [place] [address] Hospitalist Endocrinology, Diabetes, and Metabolism 06/13/22 Lisa Spencer MD [address] 200 [place] [address] Assigned Endocrinology Provider 10/19/22 Chaya Osei PA-C 700 [place], [place] [address] Assigned Surgical Provider 05/17/24 documented as of this encounter
--- OUTSIDE RECORDS SUMMARY | 2024-06-04 19:57 | XMS_ITS | Encounter Summary ---
Author Organization [place] Address [address] [place] [address]. [place] [address] Care Team Providers Care Raw Stock Dyeing Machine Tender Name Role Phone No Ref-Primary, Physician Primary Care Provider Lisa Spencer MD Unavailable [phone] Lisa Spencer MD Unavailable [phone] Chaya Osei PA-C Unavailable [phone] Reason for Visit * Reason Onset Date Comments Appointment 03/05/2024 Emergency Referr al Order Encounter Details Date Type Department Care Team (Late st Contact Info) Description 03/05/[address] [facility] [address] [address] None Appointment (Emergency Referral Order) [...] a referral from Elsa Suarez [facility]-C [facility] for the diagnoses of Other symptoms and [...] offered this patient? Yes Pt is requesting [place] location please as closest to her home Does scheduling algorithm request to schedule next available? Patient appointment has not been scheduled. Please review the referral request for accommodation and contact the patient. If unable to accommodate, please resubmit a referral and indicate a preferredpartner or affiliate location using Provider Finder or Scheduling Instructions field. Referral Order in Epic Records in [facility] Records with [facility] in [place] Please review and call Pt to schedule Thank you! documented in this encounter Plan of Treatment Upcoming Encounters Date Type Department Care Team (Late st Contact Info) Description 06/29/2024 10:30 AM ABRASIVE BAND WINDER Office Visit [facility] [place] [address] [facility] [address] [place] [phone] Chaya Osei PA-C 700 [place] [address] 07/14/2024 3:30 PM ABRASIVE BAND WINDER Office Visit [facility] [place] [address] [place] [phone] Zuly Ford MD [address] [facility] 394 [place], [place] [address] documented as of this encounter Visit Diagnoses Not on filedocumented in this encounter Care Teams Raw Stock Dyeing Machine Tender Relationship Specialty Start Date End Date No Ref-Primary, Physician PCP - General 06/13/22 Lisa Spencer MD [address] [facility] 200 [place] [address] Hospitalist Endocrinology, Diabetes, and Metabolism 06/13/22 Lisa Spencer MD [address] 200 [place] [address] Assigned Endocrinology Provider 10/19/22 Chaya Osei PAMateoC [address] [place] [address] Assigned Surgical Provider 05/17/24 documented as of this encounter
--- OUTSIDE RECORDS SUMMARY | 2024-06-04 19:57 | XMS_ITS | Encounter Summary ---
Author Organization [place] Address [address] [place] [address]. [place] [address] Care Team Providers Care Clerk Manager Name Role Phone No Ref-Primary, Physician Primary Care Provider Lisa Spencer MD Unavailable [phone] Lisa Spencer MD Unavailable [phone] Encounter Details Date Type Department Care Team [...] st Contact Info) Description 06/29/2024 10:30 AM SHREDDED FILLER CUTTER OPERATOR Office Visit [facility] [place] [address] [place] [address] Chaya Osei PA-C 700 [place] [address] 07/14/2024 3:30 PM SHREDDED FILLER CUTTER OPERATOR Office Visit [facility] [place] [address] [facility] [address] [place] [address] Zuly Ford MD [address] [facility] 394 [place] [address] documented as of this encounter Visit Diagnoses Not on filedocumented in this encounter Care Teams Clerk Manager Relationship Specialty Start Date End Date No Ref-Primary, Physician PCP - General 06/13/22 Lisa Spencer MD [address] [facility] 200 [place], [place] [address] Hospitalist Endocrinology, Diabetes, and Metabolism 06/13/22 Lisa Spencer MD [address] 200 [place], [place] [address] Assigned Endocrinology Provider 10/19/22 documented as of this encounter
--- OUTSIDE RECORDS SUMMARY | 2024-06-04 19:57 | XMS_ITS | Encounter Summary ---
Author Organization [place] Address [address] [place] [address]. [place] [address] Care Team Providers Care Staff Accountant Name Role Phone No Ref-Primary, Physician Primary Care Provider Lisa Spencer MD Unavailable [phone] Lisa Spencer MD Unavailable Encounter Details Date Type Department Care Team (Late st Contact Info) Description 04/09/2024 3:[address] [facility] [address] [facility] [address] [place] [address] Urethral pain; Pelvic pain in [...] st Contact Info) Description 06/29/2024 10:30 AM INVESTIGATION LIEUTENANT Office Visit [facility] [place] [address] [facility] [address] [place] [phone] Chaya Osei PA-C 700 [place] [address] 07/14/2024 3:30 PM INVESTIGATION LIEUTENANT Office Visit [facility] [place] [address] [place] [address] Zuly Ford MD [address] [facility] 394 [place], [place] [address] documented as of this encounter Procedures Procedure [...] developed and its performance characteristics determined by [facility]. It has not been cleared or approved by the US Food and Drug Administration. This test was performed in a CLIA certified laboratory and is intended for clinical purposes. Performed By: [facility] [address] [place] [address] Brazer Assembler: Kendrick Christina MD, PhD CLIA Number: [id number] Urine URINE SPECIMEN / Unknown Non-blood Collection / Unknown 04/09/2024 3:44 PM CDT 04/09/2024 3:44 PM CDT Esperanza Pratt PA-C LAB - MICRO G ENERAL ORDERABLES [facility] 500 [place] [address], [facility] [phone] documented in this encounter Visit Diagnoses Diagnosis Urethral pain Other symptoms involving urinary system Pelvic pain in female Unspecified symptom associated with female genital organs documented in this encounter Care Teams Staff Accountant Relationship Specialty Start Date End Date No Ref-Primary, Physician PCP - General 06/13/22 Lisa Spencer MD [address] [facility] 200 [place] [address] Hospitalist Endocrinology, Diabetes, and Metabolism 06/13/22 Lisa Spencer MD [address] 200 [place], [place] [address] Assigned Endocrinology Provider 10/19/22 documented as of this encounter
--- OUTSIDE RECORDS SUMMARY | 2024-06-04 19:57 | XMS_ITS | Encounter Summary ---
Author Organization [place] Address [address] [place] [address]. [place] [address] Care Team Providers Care Pin Puller Name Role Phone No Ref-Primary, Physician Primary Care Provider Lisa Spencer MD Unavailable [phone] Lisa Spencer MD Unavailable [phone] Encounter Details Date Type Department Care Team [...] st Contact Info) Description 06/29/2024 10:30 AM ASSISTANT CORPORATION COUNSEL Office Visit [facility] [place] [address] [facility] [address] [place] [address] Chaya Osei PA-C 700 [place] [address] 07/14/2024 3:30 PM ASSISTANT CORPORATION COUNSEL Office Visit [facility] [place] [address] [facility] [address] [place] [address] Zuly Ford MD [address] [facility] 394 [place] [address] documented as of this encounter Visit Diagnoses Not on filedocumented in this encounter Care Teams Pin Puller Relationship Specialty Start Date End Date No Ref-Primary, Physician PCP - General 06/13/22 Lisa Spencer MD [address] [facility] 200 [place], [place] [address] Hospitalist Endocrinology, Diabetes, and Metabolism 06/13/22 Lisa Spencer MD [address] 200 [place], [place] [address] Assigned Endocrinology Provider 10/19/22 documented as of this encounter
--- OUTSIDE RECORDS SUMMARY | 2024-06-04 19:57 | XMS_ITS | Encounter Summary ---
Author Organization [place] Address [facility] [place] [address] Care Team Providers Care Photographic Developer And Printer Name Role Phone No Ref-Primary, Physician Primary Care Provider Lisa Spencer MD Unavailable Lisa Spencer MD Unavailable [phone] Encounter Details Date Type Department Care Team (Late Contact Info) Description 03/05/2024 Medical Correspondence [facility] [address] [place] [address] Scan, Non-Provider Social History Tobacco [...] (Late Contact Info) Description 06/29/2024 10:30 AM GEAR HOBBER SET UP OPERATOR Office Visit [facility] [place] [address] [place] [address] Chaya Osei, [place] 700 [place], [place] [address] 07/14/2024 3:30 PM GEAR HOBBER SET UP OPERATOR Office Visit [facility] [place] [address] [place] [address] Zuly Ford MD [address] [facility] 394 [place] [address] documented as of this encounter Visit Diagnoses Not on filedocumented in this encounter Care Teams Photographic Developer And Printer Relationship Specialty Start Date End Date No Ref-Primary, Physician PCP - General 06/13/22 Lisa Spencer MD [address] [facility] 200 [place] [address] Hospitalist Endocrinology, Diabetes, and Metabolism 06/13/22 Lisa Spencer MD [address] [facility] 200 [place] [address] Assigned Endocrinology Provider 10/19/22 documented as of this encounter
--- OUTSIDE RECORDS SUMMARY | 2024-06-04 19:57 | XMS_ITS | Encounter Summary ---
Author Organization [place] Address [address] [place] [address] Care Team Providers Care Circular Ripsaw Operator Name Role Phone No Ref-Primary, Physician Primary Care Provider Lisa Spencer MD Unavailable [phone] Lisa Spencer MD Unavailable [phone] Reason for Referral * Consultation (Emergency: 1-2 Days) - Pending Review Specialty Diagnoses / Procedures Referred By Debra lazo Referred To Contact Urology Diagnoses Other symptoms and signs involving the genitourinary system Frequency of micturition Post-void dribbling Elsa Dennis [place] [address] [place] [address] Referral ID Status Reason Start Date Expiration Date V isits Requested Visits Authorized [id number] Pending Review 03/05/2024 03/05/2025 1 1 Question Answer Referral Type: Urology Reason for Referral: Other My Clinical Question Is: Bladder pain, urinary frequency , dribbling urine Scheduling Instructions: [facility] [place] will call you to coordinate care as prescribed your provider. If you don? t hear from a retail customer service representative within 2 business days, please call . Comments Referral Transcribed by external fax Provider: ELSA DENNIS affiliated with [place] [id number] [address] [place]: No If yes was is the [place] Authorization Number: Phone number: [phone] Fax number: n/a Please be aware that coverage of these services is subject to the terms and limitations of your health insurance plan. Call member services at your health plan with any benefit or coverage questions. [employer] [facility] [place] will call you to coordinate care as prescribed your provider. If you don? t hear from a retail customer service representative within 2 business days, [...] st Contact Info) Description 06/29/2024 10:30 AM DERMATOLOGY NURSE Office Visit [facility] [place] [id number] [facility] [address] [place] [address] Chaya Osei PA-C [address] [place], [place] [address] 07/14/2024 3:30 PM DERMATOLOGY NURSE Office Visit [facility] [place] [address] [facility] [address] [place] [address] Zuly Ford MD [address] [facility] 394 [place] [address] Scheduled Referrals Name Type Priority Associated Diagnoses Orde r Schedule Adult Urology Wind Technician Referral Referral Emergency: 1-2 Days Other symptoms and signs involving the genitourinary system Frequency of micturition Post-void dribbling Expected: 03/05/2024 (Approximate), Expires: 03/05/2025 documented as of this encounter Visit Diagnoses Diagnosis Other symptoms and signs involving the genitourinary system- Primary Frequency of micturition Urinary frequency Post-void dribbling documented in this encounter Care Teams Circular Ripsaw Operator Relationship Specialty Start Date End Date No Ref-Primary, Physician PCP - General 06/13/22 Lisa Spencer MD [address] [facility] 200 [place] [address] Hospitalist Endocrinology, Diabetes, and Metabolism 06/13/22 Lisa Spencer MD [address] [place] [address] 200 [place] [address] Assigned Endocrinology Provider 10/19/22 documented as of this encounter
--- OUTSIDE RECORDS SUMMARY | 2024-06-04 19:57 | XMS_ITS | Referral Summary ---
Author Organization [place] Address [address] [place] [address]. [place] [address] Care Team Providers Care Pressroom Foreman Name Role Phone No Ref-Primary, Physician Primary Care Provider Lisa Spencer MD Unavailable [phone] Lisa Spencer MD Unavailable [phone] Chaya Osei PA-C Unavailable [phone] Encounters Date Type Department Care Team Description 04/23/2024 MyC Medical Advice [facility] [place] [address] [place] [address] Chaya Osei PA-C 04/16/2024 Travel 04/16/2024 2:30 PM CDT Office Visit [facility] [place] [address] [place] [address] Chaya Osei PA-C Urinary frequency (Primary Dx); Mixed incontinence; Cystocele, midline; Rectocele; Uterovaginal prolapse; Dyspareunia in female 04/12/2024 Telephone [facility] [address] [place] [phone] Chaya Osei PA-C Call Back 04/09/2024 3:30 PM CDT Lab [facility] [address] [place] [address] Urethral pain; Pelvic pain in female 04/09/2024 Travel 04/09/2024 3:00 PM CDT Office Visit [facility] [address] [place] [phone] Esperanza Pratt PA-C Cystocele, midline (Primary Dx); Urinary frequency; Urethral pain; Pelvic pain in female 03/05/2024 Medical Correspondence [facility] [address] [place] [address] Scan, Non-Provider 03/05/2024 Telephone [facility] [address] [address] None Appointment (Emergency Referral Order) [...] st Contact Info) Description 06/29/2024 10:30 AM ASSEMBLY LINE ROBOT OPERATOR Office Visit [facility] [place] [address] [place] [address] Chaya Osei, PA-C [address] [place] [address] 07/14/2024 3:30 PM ASSEMBLY LINE ROBOT OPERATOR Office Visit [facility] [place] [address] [facility] [address] [place] [address] Zuly Ford MD [address] [facility] 394 [place], [place] [address] Procedures Procedure Name Priority Date/Time Associated Diagnosis Comments DE FIT/INSERT INTRAVAG SUPPORT DEVICE/PESSARY Routine 04/16/2024 2:42 PM CDT Cystocele, midline Uterovaginal prolapse UROGENITAL UREAPLASMA AND MYCOPLASMA SPECIES BY PCR Routine 04/09/2024 3:44 PM CDT Urethral pain Pelvic pain in female URINALYSIS MACROSCOPIC Routine 04/09/2024 2:45 PM CDT Urinary frequency DE MEASURE POST-VOID RESIDUAL URINE/BLADDER CAPACITY, US NON-IMAGING [...] PCR Not Detected 04/13/2024 9:03 AM CDT [facility] Comment: INTERPRETIVE INFORMATION: Urogenital Ureaplasma and ?Mycoplasma Species by PCR A negative result does not rule out the presence of PCR inhibitors in the patient specimen or test-specific nucleic acid in concentrations below the level of detection by this test. This test was developed and its performance characteristics determined by [facility]. It has not been cleared or approved by the [place] Food and Drug Administration. This test was performed in a CLIA certified laboratory and is intended for clinical purposes. Performed By: [facility] [address] [place] [address] Facilities Flight Check Pilot: Kendrick Christina MD, PhD CLIA Number: [id number] Urine URINE SPECIMEN / Unknown Non-blood Collection / Unknown 04/09/2024 3:44 PM CDT 04/09/2024 3:44 PM CDT Esperanza Pratt PA-C LAB - MICRO G ENERAL ORDERABLES [facility] [address] [address], [facility] [phone] * UA without Microscopic [[id number]] (04/09/2024 2:45 PM CDT) Color Urine Yellow [...] 2:59 PM CDT [facility] Specific [place] Urine 1.010 1.003 - 1.035 04/09/2024 2:59 [...] URINE O RDERABLES [facility] [address] [facility] [place] [address], [facility] [phone] * MEASURE POST-VOID RESIDUAL URINE/BLADDER CAPACITY, US [...] LAB - BLOOD ORDER [facility] [address] [facility], [address] [place] [address], [place] [phone] * (ABNORMAL) Lipid Panel (External Result) (06/03/2022 8:10 AM CDT) Cholesterol (External) 244(A) 90 - 199 mg/dL [facility] Triglycerides (External) 176(A) 40 - 149 mg/dL [facility] HDL Cholesterol (External) 80 >=50 mg/dL [facility] LDL Cholesterol Calculated (External) 129(A) <100 mg/dL [facility] Blood 06/03/2022 8:10 AM CDT [facility] - 06/03/2022 8:10 AM CDT [facility] LAB RESULT Provider Outside LAB - [facility] EXTERNAL R ESULT [facility] [address] [place] [address], [facility] [phone] * (ABNORMAL) Glucose (External Result) (06/03/2022 8:10 AM CDT) Glucose (External) 102(A) 60 - 115 mg/dL [facility] Blood 06/03/2022 8:10 AM CDT [facility] - 06/03/2022 8:10 AM CDT [facility] LAB RESULT Provider Outside LAB - [facility] EXTERNAL R ESULT [facility] [address] [place] [address], [facility] [phone] from Last 3 Months or Most Recently Relevant to Health Maintenance Care Teams Pressroom Foreman Relationship Specialty Start Date End Date No Ref-Primary, Physician PCP - General 06/13/22 Lisa Spencer MD [address] [facility] 200 [place] [address] Hospitalist Endocrinology, Diabetes, and Metabolism 06/13/22 Lisa Spencer MD [address] [place] [address] 200 [place], [place] [address] Assigned Endocrinology Provider 10/19/22 Chaya Osei PAMateoC [address] [place] [address] Assigned Surgical Provider 05/17/24
--- OUTSIDE RECORDS SUMMARY | 2024-06-04 19:57 | XMS_ITS | Clinical Summary ---
Author Organization [facility] Address [address] [place] [address] Care Team Providers Care Plug Saw Operator Name Role Phone No Ref-Primary, Physician Primary Care Provider Lisa Spencer MD Unavailable Lisa Spencer MD Unavailable [phone] Chaya Osei PA-C Unavailable [phone] Allergies Active Allergy Reactions Criticality Noted Date [...] Care Team Description 04/23/2024 MyC Medical Advice [facility] [place] [id number] [place] [phone] Chaya Osei PA-C 04/16/2024 2:30 PM CDT Office Visit [facility] [place] [id number] [place] [address] Chaya Osei PA-C Urinary frequency (Primary Dx); Mixed incontinence; Cystocele, midline; Rectocele; Uterovaginal prolapse; Dyspareunia in female 04/16/2024 Travel 04/12/2024 Telephone [facility] [place] [address] [place] [address] Chaya Osei PA-C Call Back 04/09/2024 3:30 PM CDT Lab [facility] [address] [place] [address] [address] [place] [address] Urethral pain; Pelvic pain in female 04/09/2024 3:00 PM CDT Office Visit [facility] [address] [place] [address] Esperanza Pratt PA-C Cystocele, midline (Primary Dx); Urinary frequency; Urethral pain; Pelvic pain in female 04/09/2024 Travel 03/05/2024 Medical Correspondence [facility] [address] [place] [address] Scan, Non-Provider 03/05/2024 Telephone [facility] [address] [place] [address] None Appointment (Emergency Referral Order) [...] st Contact Info) Description 06/29/2024 10:30 AM ENERGY CONSERVATION ENGINEER Office Visit [facility] [place] [address] [place] [address] Chaya Osei, PA-C [address] [place] [address] 07/14/2024 3:30 PM ENERGY CONSERVATION ENGINEER Office Visit [facility] [place] [address] [facility] [address] [place] [address] Zuly Ford MD [address] [facility] [address] [place] [address] Health Maintenance Due Date Last [...] Procedure Name Priority Date/Time Associated Diagnosis Comments [place] FIT/INSERT INTRAVAG SUPPORT DEVICE/PESSARY Routine 04/16/2024 2:42 PM CDT Cystocele, midline Uterovaginal prolapse UROGENITAL UREAPLASMA AND MYCOPLASMA SPECIES BY PCR Routine 04/09/2024 3:44 PM CDT Urethral pain Pelvic pain in female URINALYSIS MACROSCOPIC Routine 04/09/2024 2:45 PM CDT Urinary frequency [place] MEASURE POST-VOID RESIDUAL URINE/BLADDER CAPACITY, US NON-IMAGING [...] developed and its performance characteristics determined by [facility]. It has not been cleared or approved by the US Food and Drug Administration. This test was performed in a CLIA certified laboratory and is intended for clinical purposes. Performed By: [facility] [address] [place] [address] Bias Cutter: Kendrick Christina MD, PhD CLIA Number: [id number] Urine URINE SPECIMEN / Unknown Non-blood Collection / Unknown 04/09/2024 3:44 PM CDT 04/09/2024 3:44 PM CDT Esperanza Pratt PA-C LAB - MICRO G ENERAL ORDERABLES [facility] [address] [place] [address], [facility] [phone] * UA without Microscopic [[id number]] (04/09/2024 2:45 PM CDT) Color Urine Yellow [...] 2:59 PM CDT [facility] Specific [place] Urine 1.010 1.003 - 1.035 04/09/2024 2:59 [...] LAB - URINE O RDERABLES [facility] [address] [phone] * MEASURE POST-VOID RESIDUAL URINE/BLADDER CAPACITY, US [...] LAB - BLOOD ORDER [facility] [place] [facility] [address] [facility], [address] [address], [facility] [phone] * (ABNORMAL) Lipid Panel (External Result) (06/03/2022 8:10 AM CDT) Cholesterol (External) 244(A) 90 - 199 mg/dL [facility] Triglycerides (External) 176(A) 40 - 149 mg/dL [facility] HDL Cholesterol (External) 80 >=50 mg/dL [facility] LDL Cholesterol Calculated (External) 129(A) <100 mg/dL [facility] Blood 06/03/2022 8:10 AM CDT Narrative [facility] - 06/03/2022 8:10 AM CDT [facility] LAB RESULT Provider Outside LAB - HIM EXTERNAL R ESULT [facility] [address] [place] [address], [facility] [phone] * (ABNORMAL) Glucose (External Result) (06/03/2022 8:10 AM CDT) Glucose (External) 102(A) 60 - 115 mg/dL [facility] Blood 06/03/2022 8:10 AM CDT Narrative [facility] - 06/03/2022 8:10 AM CDT [facility] LAB RESULT Provider Outside LAB - [facility] EXTERNAL R ESULT [facility] [address] [place] [address], [facility] [phone] from Last 3 Months or Most Recently Relevant to Health Maintenance Care Teams Plug Saw Operator Relationship Specialty Start Date End Date No Ref-Primary, Physician PCP - General 06/13/22 Lisa Spencer MD [address] [facility] [address] [place] [address] Hospitalist Endocrinology, Diabetes, and Metabolism 06/13/22 Lisa Spencer MD [address] [place] [address] 200 [place] [address] Assigned Endocrinology Provider 10/19/22 Chaya Osei PA-C [address] [place] [address] Assigned Surgical Provider 05/17/24
--- OUTSIDE RECORDS SUMMARY | 2024-06-04 19:57 | XMS_ITS | Encounter Summary ---
Author Organization [facility] Address [address] [place] [address]. [place] [address] Care Team Providers Care Spooler Operator Automatic Name Role Phone No Ref-Primary, Physician Primary Care Provider Lisa Spencer MD Unavailable [phone] Lisa Spencer MD Unavailable [phone] Chaya Osei PA-C Unavailable Reason for Visit * Reason Onset Date Comments Call Back 04/12/2024 Encounter Details Date Type Department Care Team (Late st Contact Info) Description 04/12/2024 Telephone [facility] [place] [id number] [facility] [address] [place] [address] Chaya Osei, PAMateoC [address] [place] [address] Call Back Social History Tobacco [...] Cruz - 04/12/2024 8:17 AM CDT M [facility] Call Center Phone Message May a [...] st Contact Info) Description 06/29/2024 10:30 AM PHLEBOTOMIST LAB ASSISTANT Office Visit [facility] [place] [phone] [facility] [address] [place] [phone] Chaya Osei PA-C [address] [place], [place] [address] 07/14/2024 3:30 PM PHLEBOTOMIST LAB ASSISTANT Office Visit [facility] [place] [id number] [facility] [address] [place] [phone] Zuly Ford MD [address] [facility] [address] [place], [place] [address] documented as of this encounter Visit Diagnoses Not on filedocumented in this encounter Care Teams Spooler Operator Automatic Relationship Specialty Start Date End Date No Ref-Primary, Physician PCP - General 06/13/22 Lisa Spencer MD [address] [facility] [address] [place] [address] Hospitalist Endocrinology, Diabetes, and Metabolism 06/13/22 Lisa Spencer MD [address] [facility] [address] [place] [address] Assigned Endocrinology Provider 10/19/22 Chaya Osei PA-C [address] [place] [address] Assigned Surgical Provider 05/17/24 documented as of this encounter
--- OUTSIDE RECORDS SUMMARY | 2024-06-04 19:57 | XMS_ITS | Encounter Summary ---
Author Organization [facility] Address [address] [place] [address]. [place] [address] Care Team Providers Care Acid Plant Helper Name Role Phone No Ref-Primary, Physician Primary Care Provider Lisa Spencer MD Unavailable [phone] Lisa Spencer MD Unavailable [phone] Reason for Visit * Reason Comments Urinary Frequency urethral pain Encounter Details Date Type Department Care Team (Late st Contact Info) Description 04/09/2024 3:00 PM CDT Office Visit [facility] [address] [place] [address] Esperanza Pratt PA-C [address] [facility] [address] [place], [place] [address] Cystocele, midline (Primary Dx); Urinary frequency; Urethral [...] with questions, concerns, or changes in symptomatology. [phone] documented in this encounter Progress Notes * [...] of pelvic surgery. Fluid intake includes 3-4 snuff blender bottle and approximately 2 cups of coffee daily. Does note that she has a retroverted uterus and has fibromyalgia. Outside records are at [facility], which we have not received. The following [...] st Contact Info) Description 06/29/2024 10:30 AM ARMORED VEHICLE OFFICER Office Visit [facility] [place] [address] [facility] [address] [place] [phone] Chaya Osei PA-C [address] [place], [place] [address] 07/14/2024 3:30 PM ARMORED VEHICLE OFFICER Office Visit [facility] [place] [address] [facility] [address] [place] [phone] Zuly Ford MD [address] [facility] [address] [place] [address] documented as of this encounter [...] PCR Not Detected 04/13/2024 9:03 AM CDT [employer] Comment: INTERPRETIVE INFORMATION: Urogenital Ureaplasma and ?Mycoplasma Species by PCR A negative result does not rule out the presence of PCR inhibitors in the patient specimen or test-specific nucleic acid in concentrations below the level of detection by this test. This test was developed and its performance characteristics determined by [facility]. It has not been cleared or approved by the US Food and Drug Administration. This test was performed in a CLIA certified laboratory and is intended for clinical purposes. Performed By: [facility] [address] [place] [address] Sap Hana Developer: Kendrick Christina MD, PhD CLIA Number: [id number] Urine URINE SPECIMEN / Unknown Non-blood Collection / Unknown 04/09/2024 3:44 PM CDT 04/09/2024 3:44 PM CDT Esperanza Pratt PA-C LAB - MICRO G ENERAL ORDERABLES [facility] [employer] [employer] [facility] [address] [place] [address], [facility] [phone] * UA without Microscopic [[id number]] (04/09/2024 2:45 PM CDT) Color Urine Yellow [...] 2:59 PM CDT [facility] Specific [place] Urine 1.010 1.003 - 1.035 04/09/2024 2:59 [...] [facility] [address] [facility] [place] [id number], [facility] [phone] * MEASURE POST-VOID RESIDUAL URINE/BLADDER CAPACITY, US NON-IMAGING (04/09/2024) Residual Volume (RV) (External) 16 Esperanza Pratt PA-C PROCEDURES documented in this encounter Visit Diagnoses Diagnosis Cystocele, midline- Primary Urinary frequency Urethral pain Other symptoms involving urinary system Pelvic pain in female Unspecified symptom associated with female genital organs documented in this encounter Care Teams Acid Plant Helper Relationship Specialty Start Date End Date No Ref-Primary, Physician PCP - General 06/13/22 Lisa Spencer MD [address] [facility] [address] [place] [address] Hospitalist Endocrinology, Diabetes, and Metabolism 06/13/22 Lisa Spencer MD [address] [place] [address] Assigned Endocrinology Provider 10/19/22 documented as of this encounter
--- OUTSIDE RECORDS SUMMARY | 2024-06-04 19:57 | XMS_ITS | Encounter Summary ---
Author Organization [facility] Address [address] [place] [address]. [place] [address] Care Team Providers Care Commercial Electrician Name Role Phone No Ref-Primary, Physician Primary Care Provider Lisa Spencer MD Unavailable [phone] Lisa Spencer MD Unavailable [phone] Reason for Visit * Reason Comments Other Pessary fitting Encounter Details Date Type Department Care Team (Late st Contact Info) Description 04/16/2024 2:30 PM CDT Office Visit [facility] [address] [place] [address] Chaya Osei, PA-C [address] [place], [place] [phone] Urinary frequency (Primary Dx); Mixed incontinence; Cystocele, [...] st Contact Info) Description 06/29/2024 10:30 AM LIGHT CLEANER Office Visit [facility] [address] [place] [address] [address] [place] [address] Chaya Osei PA-C [address] [place] [address] 07/14/2024 3:30 PM LIGHT CLEANER Office Visit [facility] [place] [address] [facility] [address] [place] [address] Zuly Ford MD [address] [address] documented as of this encounter Procedures Procedure Name Priority Date/Time Associated Diagnosis Comments [place] FIT/INSERT INTRAVAG SUPPORT DEVICE/PESSARY Routine 04/16/2024 2:42 PM CDT Cystocele, midline Uterovaginal prolapse documented in this encounter Visit Diagnoses Diagnosis Urinary frequency- Primary Mixed incontinence Mixed incontinence urge and stress (male)(female) Cystocele, midline Rectocele Uterovaginal prolapse Uterovaginal prolapse, unspecified Dyspareunia in female documented in this encounter Care Teams Commercial Electrician Relationship Specialty Start Date End Date No Ref-Primary, Physician PCP - General 06/13/22 Lisa Spencer MD [address] [facility] [address] [place] [address] Hospitalist Endocrinology, Diabetes, and Metabolism 06/13/22 Lisa Spencer MD [address] [place], [place] [address] Assigned Endocrinology Provider 10/19/22 documented as of this encounter
--- OUTSIDE RECORDS SUMMARY | 2024-06-04 19:58 | XMS_ITS | Clinical Summary ---
Author Organization [facility] Address [address] [place] [address] Care Team Providers Care Skoog Machine Operator Name Role Phone Gisela Steiner MD Primary Care Provider [phone] Source Comments You are receiving this document as you are listed as the primary care provider,follow-up provider, or the patient has been referred to you for consultation.This is in compliance with the Medicare and[facility] Community Hospital[facility] EHR Incentive Program,which states Providers who transition their patient to another setting of careor provider of care or refers their patient to another provider of care shouldprovide summary care record for each transition of care or referral. [place] Allergies Active Allergy Reactions Criticality Noted Date Comments Bupropion 12/19/2004 PN: LW Reaction: SHORTNESS OF BREATH Ramelteon Other, see comments High 04/11/2023 Medications Medication Sig Dispensed Refills Start Date End Date Status unknown medication Indications: PN: 09/17/2004 Active unknown medication Indications: PN: 01/09/2005 Active ALPRAZolam (XANAX) 0.5 MG tablet TK 1 T PO QHS PRF PREFORMER IMPREGNATED FABRICS 04/06/2020 Active DULoxetine (CYMBALTA) 60 MG capsule [...] Comments Blood Pressure 99/72 09/12/2022 8:59 AM ORDER EDITOR Pulse 85 09/12/2022 8:59 AM ORDER EDITOR Temperature - - Respiratory Rate - - Oxygen Saturation - - Inhaled Oxygen Concentration - - Weight 76.2 kg (168 lb) 09/12/2022 8:59 AM ORDER EDITOR Height 162.6 cm (5' 4) 09/12/2022 8:59 AM ORDER EDITOR Body Mass Index 28.84 09/12/2022 8:59 AM ORDER EDITOR Plan of Treatment Health Maintenance Due Date [...] age to complete this topic Care Teams Skoog Machine Operator Relationship Specialty Start Date End Date Gisela Steiner MD [address] [place] [address] PCP - General 11/27/10
--- OUTSIDE RECORDS SUMMARY | 2024-06-04 19:58 | XMS_ITS | Continuity of Care Document ---
Author Organization [facility] Address [address] [address] [place] [address] Phone Care Team Providers Care Immigration Lawyer Name Role Phone Unavailable Unavailable Unavailable Allergies, [...] Diagnoses Date Provider Providers Copied on Encounter [facility] [place], [address] [address], [place], [place], [id number], [place] tel:[phone] [facility] DiarrheaHiatal HerniaAbdominal Pain, Unspecified 6-200 6 No Information Referring Provider: Blessing Richard MD J, [address] [facility], [place], [address]. tel:[phone] Offic Cons New/estab Mod-hi 60 [facility] [place], [address] [address], [place], [place], [id number], [place] tel:[phone] [facility] DiarrheaNausea AloneAbd Pain Nec/multi Site May- 4-200 6 [address]. [address] [facility], [place], [place], [id number], [place]. tel:[phone] Referring Provider: Blessing Richard MD J, [address], [place], [address]. tel:[phone] Family History Family Member Type Diagnosis Age At Onset No Information Payers Payer name Insurance type Covered republican ID Authoriza tion(s) No Information Social History [...]
--- OUTSIDE RECORDS SUMMARY | 2024-06-04 19:58 | XMS_ITS | Clinical Summary ---
Author Organization [facility] Address [place], [place] [address] Care Team Providers Care Senior Quantity Surveyor Name Role Phone Peter Lola Benedict Phelps [...] Procedure Name Priority Date/Time Associated Diagnosis Comments ASSISTANT PROSECUTING ATTORNEY THIN PREP PAP SCREEN IMAGED Routine 10/25/2019 10:00 AM REPRODUCTION SPECIALIST from Last 3 Months or Most Recently Relevant to Health Maintenance Results * ASSISTANT PROSECUTING ATTORNEY THIN PREP PAP SCREEN IMAGED (10/25/2019 10:00 AM REPRODUCTION SPECIALIST) Case Report Gynecologic Cytology Report ? Case: [id number] ? Authorizing Provider: ??Jess Lomeli ??Collected: ? 10/25/2019 1000 ? M, MD ? Ordering Location: ? [facility] ?Received: ?10/26/2019 1609 ? First Screen: ?Sg Reddy ? Specimen: ?ASSISTANT PROSECUTING ATTORNEY ThinPrep Vial Screening, Cervical/Vaginal ? 11/02/2019 4:07 PM CDT [facility] INTERPRETATION/ RESULT NEGATIVE FOR INTRAEPITHELIAL LESION OR MALIGNANCY (NIL) (none) 11/02/2019 4:07 PM CDT [facility] IMEN ADEQUACY Satisfactory for evaluation Endocervical component present 11/02/2019 4:07 PM CDT [facility] HPV REQUEST HPV and PAP 11/02/2019 4:07 PM CDT [facility] Date of LMP 10/18/2019 11/02/2019 4:07 PM CDT [facility] Last Pap Date 11/06/2015 11/02/2019 4:07 PM CDT [facility] Additional Information 11/02/2019 4:07 PM CDT [facility] Comment: Interpreted at [facility] Central Laboratory - [address], [place] [address] Automated Review Successful 11/02/2019 4:07 PM CDT [facility] Comment:Specimen processed s uccessfully by automated assistant hvac mechanic device, ThinPrep Imaging System, [employer] ANCILLARY TESTING ASSISTANT PROSECUTING ATTORNEY HPV Ordered, Please see separate report 11/02/2019 4:07 PM CDT [facility]-C ENTRAL LABORATORY Note The pap test [...] and malignant lesions. 11/02/2019 4:07 PM CDT [facility]-C ENTRAL LABORATORY Other (Cervical/Vagina l) 10/25/2019 10:00 AM REPRODUCTION SPECIALIST 10/26/2019 4:09 PM REPRODUCTION SPECIALIST Jess Lomeli MD PATHOLOGY/ CYTOLOGY [facility]-CENTRAL LABORATORY [address] [place] [address], from Last 3 Months or Most Recently Relevant to Health Maintenance Additional Health Concerns Infection Onset Date Last Indicated Rule-Out C.diff 06/14/2019 06/14/2019 Care Teams Senior Quantity Surveyor Relationship Specialty Start Date End Date Benedict Haider MD [address] [place] [address] PCP - General Family Practice 06/11/19 Lola Cheng 03/30/18
[2024-06-04 19:59] LABS: Creatinine* 0.8 mg/dL (0.5-1.5); Est. Creatinine Clearance* 79.11; Estimated Glomerular Filt Rate 94 ml/min
[2024-06-04 20:00] LABS: Alanine Aminotransferase* 16 U/L (4-35); Alkaline Phosphatase* 55 U/L (40-150); Anion Gap 11 mEq/L (7-15); Aspartate Amino Transferase* 19 U/L (12-35); Bilirubin Total* 0.4 mg/dL (0.1-1.5); Blood Urea Nitrogen* 10 mg/dL (5-24); Calcium* 9.8 mg/dL (8.4-10.6); Carbon Dioxide* 24 mmol/L (20-32); Glucose* 91 mg/dL (60-115); Total Protein* 7.6 g/dL (6.0-8.3)
[2024-06-04 20:03] LABS: C Reactive Protein* < 0.5 mg/dL (0.5-1.0)
--- NOTE | 2024-06-04 20:05 | CRLHL7_ITS ---
For Patients: As a result of the Century Cures Act, medical imaging exams and procedure reports are released immediately into your electronic medical record. You may view this report before your referring provider. If you have questions, please contact your health care provider. INDICATION: Acute pelvic pain. TECHNIQUE: Ultrasound pelvis transvaginal for better assessment or to better visualize the endometrium. Real-time sonographic images with spectral and color Doppler imaging of the ovaries were obtained. COMPARISON: CT abdomen and pelvis the same day. FINDINGS: Uterus: 9.3 x 5.5 x 7.6 cm. Contains a 3.4 x 2.5 x 2.9 cm fibroid within the right mid/fundal myometrium. Retroverted position. Endometrium: Transvaginal imaging was performed to better evaluate the endometrium. Endometrial thickness measures mm. No sign of endometrial mass or fluid. Right ovary measures 5.8 x 2.9 x 3.0 cm. Left ovary measures 2.9 x 1.7 x 1.6 cm. The right ovary is enlarged by a 3.7 cm simple cyst. Normal arterial and venous blood flow is demonstrated in both ovaries. Cul-de-sac: Mild to moderate volume simple free fluid. IMPRESSION: 1. Simple 3.7 cm right ovarian cyst. No evidence for ovarian torsion. 2. 3.4 cm fibroid within the right uterus. 3. Mild to moderate volume simple free fluid in the pelvis. Dictated by All Guerra MD @ 06/04/2024 10:40:48 PM (Electronically Signed)
[2024-06-04] MEDS: KETAMINE 50 MG/0.5 ML 20 MG in 0.9 % SODIUM CHLORIDE 100 ml 100 ML 200.4 MG IVPB (20:18)
[2024-06-04 20:30] LABS: Appearance Urine Clear (Clear); Bilirubin Urine Negative (Negative); Blood Urine Negative (Negative); Color Urine Yellow (Yellow); Glucose Urine Negative (Negative); Ketones Urine Negative (Negative); Leukocyte Esterase Urine Negative (Negative); Nitrite Urine Negative (Negative); Protein Urine Negative (Negative); Urobilinogen Urine 0.2 (0.2-1.0); pH Urine 8.5 (5.0-8.5)
[2024-06-04 20:38] LABS: RBC Urine 0-2 (0-2); WBC Urine 0-2 (0-5)
--- NOTE | 2024-06-04 20:40 | CRLHL7_ITS ---
For Patients: As a result of the Century Cures Act, medical imaging exams and procedure reports are released immediately into your electronic medical record. You may view this report before your referring provider. If you have questions, please contact your health care provider. INDICATION: Severe pelvic pain. TECHNIQUE: CT abdomen and pelvis acquired with 79 cc of Isovue 370 IV contrast. COMPARISON: None. FINDINGS: Lower chest: Unremarkable. Liver: Unremarkable. Normal in size and attenuation. No suspicious masses. Gallbladder and bile ducts: Status post cholecystectomy. No abnormal biliary ductal dilatation. Pancreas: Unremarkable. No mass or inflammation. Spleen: Unremarkable. Normal in size. No masses. Adrenal glands: Unremarkable. No nodules. Kidneys: Unremarkable. No suspicious masses, stones, or hydronephrosis. GI tract: Unremarkable. Normal in caliber. No sign of mass or inflammation. Normal appendix. Vasculature: Abdominal aorta is normal in caliber. Mesenteric arteries are patent. Lymph nodes: No lymphadenopathy. Peritoneum/Abdominal Wall: Small volume free fluid in the pelvic cul-de-sac. No free air. Tiny fat-containing umbilical hernia. Pelvis: 3.1 cm probable fibroid within the right uterus. Bones: Unremarkable for age. IMPRESSION: 1. Small volume free fluid in the pelvic cul-de-sac, within the range of physiologic. Otherwise, no acute findings within the abdomen and pelvis. 2. 3.1 cm probable fibroid within the right uterus. 3. Normal appendix. Please note that all CT scans at this facility use dose modulation, iterative reconstruction, and/or weight-based dosing when appropriate to reduce radiation dose to as low as reasonably achievable. Dictated by All Guerra MD @ 06/04/2024 10:25:47 PM (Electronically Signed)
[2024-06-04] MEDS: MORPHINE 4 MG/ML INJ IVP (20:47)
[2024-06-04] MEDS: HYDROmorphone 0.5 mg/0.5 ml inj IVP (21:32)
[2024-06-04 21:47] LABS: Ur HCG Qualitative* Negative (Negative)
[2024-06-04] MEDS: DOCUSATE SODIUM/BENZOCAINE 5 ML ENEMA PR (22:53)
== END 2024-06-05 | disposition home or self-care (01) ==
PROVIDERS: Emergency Provider Family Medicine; PCP Family Medicine
DX: R10.9 Unspecified abdominal pain (principal)
CPT/HCPCS: 36415; 74019; 74177; 76830; 80053; 81001; 81025; 85025; 86140; 93976; 96365; 96375; 99284; 99285; A9270; J1171; J1885; J2060; J2270; J3490; Q9967

== ENCOUNTER 2024-10-21 08:26 | Outpatient (CLI) | payer MEDICAID, SELFPAY | END 2024-10-21 08:27 | disposition home or self-care (01) | PROVIDERS: PCP Family Medicine; Visit Provider Family Medicine | DX: R10.9 Unspecified abdominal pain (principal); E55.9 Vitamin D deficiency, unspecified; E03.9 Hypothyroidism, unspecified | CPT/HCPCS: 80053; 84443; 85025; 86140 ==

== ENCOUNTER 2024-10-26 12:02 | Outpatient (CLI) | payer MEDICAID, SELFPAY ==
[2024-10-28 02:14] LABS: HPV Source Cervical; HPV, High Risk by TMA Not Detected
== END 2024-10-26 12:03 | disposition home or self-care (01) ==
PROVIDERS: PCP Family Medicine; Visit Provider Obstetrics & Gynecology
DX: Z12.4 Encounter for screening for malignant neoplasm of cervix (principal)
CPT/HCPCS: 87624; 87625; 88141; 88142

== ENCOUNTER 2025-05-16 09:25 | Emergency (ER) | payer MEDICAID, SELFPAY ==
--- OUTSIDE RECORDS SUMMARY | 2024-09-14 06:30 | XMS_ITS ---
Author Organization [facility] Address [address] [place] [address] [address] [place] [address] Care Team Providers Care Clinical Staff Anesthesiologist Name Role Phone [facility] , Benedict Ray are Provider Unavailable Vance Richard Unavailable [phone] Kami Finley Unavailable [phone] REASON FOR VISIT Patient sent web message to cxl stating: Neck is inflamed, and painful. Currently in fibro flare up. Encounters Encounter Location Date Provider Diagnosis [facility] [address] [place] [address] 09/14/2024 Kami Finley Plan Of Treatment No Information Progress Notes * Harika BARRIGADOB:[birth year] (44 yo F)Acc No.[id number]:09/14/2024 Rehab Therapy Patient: Harika AARON Provider: Stu Finley DPT :1980 A ge:43 Y S ex:Female Date:09/14/2024 Phone: Address:[facility] [phone] [facility]: * Chief Complaints: Objective: Therapeutic Interventions: Assessment: Plan: * Treatment: * Billing Information: * Visit Code: * Procedure Codes: * Electronic signature of Rohini Finley DPT on 05/16/2025 at 09:29 AM CDT Sign off status: Pending * Provider: Stu Finley DPT Date: 0 09/14/2024 Generated for Kamilah reese/Carina/eTransmitting on: 0 05/16/2025 09:29 AM CDT
--- OUTSIDE RECORDS SUMMARY | 2025-04-14 13:00 | XMS_ITS | Encounter Summary ---
Author Organization [place] Address [address] [place] [address]. [place] [address] Care Team Providers Care Steel Shot Header Operator Name Role Phone Lisa Spencer MD Unavailable [phone] Jason Davenport MD Unavailable Benedict Haider MD Primary Care Provider Chaya OseiC Unavailable [phone] Reason for Visit * Reason Comments RECHECK Surgery follow-up Encounter Details Date Type Department Care Team (Latest Contact Info) Description 04/14/2025 1:00 PM CDT Office Visit [facility] [address] [place] [address] Chaya Osei, PA-C [address] [place] [address] Encounter for postoperative care (Primary Dx); Mixed incontinence Social History Tobacco Use Types Packs/Day Years Used Date Smoking Tobacco: Former Cigarettes 0.3 7 0 09/25/1999 - 09/25/2006 Passive Smoke Exposure: Past Smokeless Tobacco: Never Comments:Quit 2-07 Alcohol Use Standard Drinks/Week Comments Not Currently 0 (1 standard drink = 0.6 oz pur e alcohol) PHQ-2 Answer Date Recorded PHQ-2 Score 0 10/06/2024 Adolescent Education Answer Date Record ed Getting School Help Needed Not on file 05/18 Food Insecurity Answer Date Recorded Within the past 12 months, d id you worry that your food would run out before you got money to buy more? No 03/08/2025 Within the past 12 months, d id the food you bought just not last and you didn t have money to get more? No 03/08/2025 Housing Stability Answer Date Recorded Do you have housing? (Sera perdue is defined as stable permanent housing and does not include staying outside in a car, in a tent, in an abandoned building, in an overnight usp, or couch-surfing.) No 03/08/2025 Are you worried about losing your housing? No 03/08/2025 Financial Resource Strain Answer Date R ecorded Within the past 12 months, h ave you or your family members you live with been unable to get utilities (heat, electricity) when it was really needed? No 03/08/2025 Transportation Needs Answer Date Record ed Within the past 12 months, h as lack of transportation kept you from medical appointments, getting your medicines, non-medical meetings or appointments, work, or from getting things that you need? No 03/08/2025 Interpersonal Safety Answer Date Record ed Do you feel physically and e motionally safe where you currently live? Yes 03/08/2025 Within the past 12 months, h ave you been hit, slapped, kicked or otherwise physically hurt by someone? No 03/08/2025 Within the past 12 months, h ave you been humiliated or emotionally abused in other ways by your partner or ex-partner? No 03/08/2025 Comments No Sex and Gender Information Value Date Recorded Sex Assigned at Not on file Legal Sex Female 4:22 AM LIP CUTTER AND SCORER Gender Identity Not on file Sexual Orientation Not on file documented as of this encounter Last Filed Vital Signs Vital Sign Reading Time Taken Comments Blood Pressure 110/73 04/14/2025 12:54 PM CDT Pulse 66 04/14/2025 12:54 PM CDT Temperature - - Respiratory Rate - - Oxygen Saturation 99% 04/14/2025 12:54 PM CDT Inhaled Oxygen Concentration - - Weight - - Height - - Body Mass Index - - documented in this encounter Patient Instructions * Patient Instructions* Chaya Osei PA-C - 04/14/2025 1:00 PM CDT - continue post-op restrictions for 1 more week from urology standpoint. - keep appointment with colorectal team. - follow-up in 4-6 months - contact my clinic if you would like a referral back to PT or if want to start a medication. documented in this encounter Progress Notes * Chaya Osei PA-C - 04/14/2025 1:00 PM CDT April 14, 2025 Post operative visit Patient has hx of s/p robot assisted total hysterectomy, bilateral salpingectomy, uterosacral ligament suspension with cysto by Dr. Ford on 12/21/24. Patient returns today for follow up s/p ventral rectopexy along with sacrocolpopexy and cysto with Dr. Ford and Dr. Davenport on 03/08/25. Was seen by colorectal team on 03/28/25 and doing well. Here today for post-op follow-up. States a few days after surgery felt a thump when going to sit on the toilet. Does not feel vaginal bulge. No vaginal pain orbleeding. Patient also has hx of DELFINO; not currently on OAB medication. Patient reports urinary urgency. Patient voices no other concerns at this time. BP 110/73 Pulse 66 LMP 10/29/2024 SpO2 99% Patient is comfortable, in no distress, non-labored breathing. Abdomen is soft, non-tender, non-distended. Incision sites along abdomen well healed. Vulva unremarkable. Speculum exam obtained. Good apical support. No obvious masses, lesions, active bleeding, ulcers, abnormal discharge, sutures or mesh extrusion. PVR 15 mL by bladder scan A/P: Patient is s/p ventral rectopexy along with sacrocolpopexy and cysto with Dr. Ford and Dr. Davenport on 03/08/25 - PVR WNL - continue post-op restrictions for 1 more week from urology standpoint. - keep appointment with colorectal team. - UA shows RBC but otherwise negative; UC pending. Think her bladder sx secondary to OAB. Discussedreferral back to PFPT vs OAB medications. Patient plans to do PFPT exercises at home. Will notify my team if would like referral back to PFPT or start OAB medication; consider vesicare 5mg daily. - reassured patient that has good support and no obvious abnormalities on exam. Unclear what the thump feeling was. Advised to contact clinic if develops prolapse sx in the future. - avoid bladder irritants. - follow-up in about 4 months for sx check Chaya Osei PA-C Urology [facility] Patient Care Team: Benedict Haider MD as PCP - General (Family Medicine) Lisa Spencer MD as Hospitalist (Endocrinology, Diabetes, and Metabolism) Jason Davenport MD as MD (Colon & Rectal) Chaya Osei PA-C as Assigned Surgical Provider documented in this encounter Nursing Notes * Tyra Espinoza CMA - 04/14/2025 1:00 PM CDT PVR by scanner=15mL Pt left a JIC urine. Pt is having freq Pt denies gross hem Pt denies dysuria Pt felt like something fell... pt felt at thump2 days after surgery when sitting on the toilet tovoid. Janneth Espinoza CMA documented in this encounter Plan of Treatment Upcoming Encounters Date Type Department Care Team (Late st Contact Info) Description 08/30/2025 1:30 PM LIP CUTTER AND SCORER Office Visit [facility] [place] [address] [place] [address] Chaya Osei PA-C [address] [place], [place] [address] documented as of this encounter Goals Goal Patient Goal Type Associated Problems Recent Progress Patient-Stated? Author MYC ECC SURG ENROLL Care Plan MyC ECC SURG ENROLL No Maxime Martha A Care pathway for general surgery Care Plan Care pathway for general surgery No Jodi Blas MYC ECC SURG DAY 10 MED Care Plan Care pathway for general surgery No Aurelio [place] documented as of this encounter Procedures Procedure Name Priority Date/Time Associated Diagnosis Comments URINE CULTURE Routine 04/14/2025 1:22 PM CDT Encounter for postoperative care Mixed incontinence URINALYSIS MACROSCOPIC Routine 04/14/2025 1:15 PM CDT Mixed incontinence OK MEASURE POST-VOID RESIDUAL URINE/BLADDER CAPACITY, US NON-IMAGING Routine 04/14/2025 Mixed incontinence documented in this encounter Results * Urine Culture (04/14/2025 1:22 PM CDT) Culture <10,000 CFU/mL Urogenital mann 04/16/2025 4:52 AM CDT [facility] Urine MID-STREAM URINE SPECIMEN / Unknown Non-blood Collection / Unknown 04/14/2025 1:22 PM CDT 04/14/2025 1:22 PM CDT us Chaya Osei PA-C LAB - MICRO GENERAL KILEY HERBERT Final Result [facility] Inf. Diseases Diag. Lab [address] [facility], [address] [place] [id number] * (ABNORMAL) UA without Microscopic [[id number]] (04/14/2025 1:15 PM CDT) Color Urine Yellow Colorless, Straw, Light Yellow, Yellow 04/14/2025 1:49 PM CDT [facility] Appearance Urine Clear Clear 04/14/20 25 1:49 PM CDT [facility] Glucose Urine Negative Negative mg/dL 04/14/2025 1:49 PM CDT [facility] Bilirubin Urine Negative Negative 5 1:49 PM CDT [facility] Ketones Urine Negative Negative mg/dL 04/14/2025 1:49 PM CDT [facility] Specific Coulters Urine <=1.005 1.003 - 1.035 04/14/2025 1:49 PM CDT [facility] Blood Urine Trace(A) Negative 04/14/2025 1:49 PM CDT [facility] pH Urine 6.5 5.0 - 7.0 04/14/2025 1:49 PM CDT [facility] Protein Albumin Urine Negative Negative mg/dL 04/14/2025 1:49 PM CDT [facility] Urobilinogen Urine 0.2 0.2, 1.0 E.U./dL 04/14/2025 1:49 PM CDT [facility] Nitrite Urine Negative Negative 04/14/2025 1:49 PM CDT [facility] Leukocyte Esterase Urine Negative Negative 04/14/2025 1:49 PM CDT [facility] Urine MID-STREAM URINE SPECIMEN / Unknown Non-blood Collection / Unknown 04/14/2025 1:15 PM CDT 04/14/2025 1:15 PM CDT us Chaya Osei PA-C LAB - URINE ORDERABLES F inal Result [facility] [address] , [address] [place] [address], [facility] [phone] * MEASURE POST-VOID RESIDUAL URINE/BLADDER CAPACITY, US NON-IMAGING ([id number]) (04/14/2025) Result 15 us Chaya Osei PAMateoC PROCEDURES Final Re sult documented in this encounter Visit Diagnoses Diagnosis Encounter for postoperative care- Primary Mixed incontinence Mixed incontinence urge and stress (male)(female) documented in this encounter Additional Health Concerns Active Problems Noted Date Diagnosed Date MyC ECC SURG ENROLL 09/21/2024 Care pathway for general surgery 12/09/2024 documented as of this encounter Care Teams Steel Shot Header Operator Relationship Specialty Start Date End Date Benedict Haider MD [facility] [address] [place] [address] PCP - General Family Medicine 03/08/25 Lisa Spencer MD [address] [facility] [address] [place] [address] Hospitalist Endocrinology, Diabetes, and Metabolism 06/13/22 Jason Davenport MD [address] [place] [address] [id number] Colon & Rectal 07/27/24 Chaya Osei, PA-C [address] [place] [address] [id number] Assigned Surgical Provider 02/14/25 documented as of this encounter
--- OUTSIDE RECORDS SUMMARY | 2025-04-18 13:00 | XMS_ITS | Encounter Summary ---
Author Organization [place] Address [address] [place] [address]. [place] [address] Care Team Providers Care Industrial Commercial Groundskeeper Name Role Phone Lisa Spencer MD Unavailable [phone] Jason Davenport MD Unavailable Benedict Haider MD Primary Care Provider Chaya Osei PA-C Unavailable Reason for Visit * Reason Comments Post-op Visit Encounter Details Date Type Department Care Team (Late st Contact Info) Description 04/18/2025 1:00 PM CDT Office Visit [facility] [place] [id number] [facility] [address] [place] [address] Jason Davenport MD [address] [facility] [address] [place] [address] Follow-up examination after colorectal surgery (Primary Dx) Social History Tobacco Use Types Packs/Day Years [...] in an abandoned building, in an overnight fdc, or couch-surfing.) No 03/08/2025 Are you worried [...] on file Legal Sex Female 4:22 AM BONE DENSITY TECHNICIAN Gender Identity Not on file Sexual Orientation Not on file documented as of this encounter Last Filed Vital Signs Vital Sign Reading Time Taken Comments Blood Pressure 108/74 04/18/2025 1:12 PM CDT Pulse 70 04/18/2025 1:12 PM CDT Temperature - - Respiratory Rate - - Oxygen Saturation 98% 04/18/2025 1:12 PM CDT Inhaled Oxygen Concentration - - Weight 76 kg (167 lb 9.6 oz) 04/18/2025 1:12 PM CDT Height 162.6 cm (5' 4) 04/18/2025 1:12 PM CDT Body Mass Index 28.77 04/18/2025 1:12 PM CDT documented in this encounter Progress Notes * Jason Davenport MD - 04/18/2025 1:00 PM CDT Colon and Rectal Surgery Follow-up Clinic Note RE: Harika Roach : 1980 MOR: 04/18/2025 DIAGNOSIS: 44 year old female now status post robotic ventral mesh rectopexy and sacrocolpopexy on 03/08/[address] Ford. INTERVAL HISTORY: Denies increased pain, fevers, or chills. She did feel a thump when sitting down on the toilet a few weeks ago followed by minor pelvic pressure but this has since disappeared. Tolerating diet well. Having regular and formed bowel movements without blood. Still has some minor emptying issues but this is improving with fiber supplement and stool softener. Also having some minor issues with emptying her bladder but she feels like this is getting better as well. Off narcotic painmeds. Physical Examination: BP 108/74 (BP Location: Left arm, Patient Position: Sitting, Cuff Size: Adult Regular) Pulse 70 Ht 1.626 m (5' 4) Wt 76 kg (167 lb 9.6 oz) LMP 10/29/2024 SpO2 98% BMI 28.77 kg/m?? Abdomen is soft, nontender. Incisions with no evidence of infection or hernia. ASSESSMENT Doing well postop. PLAN High-fiber diet. Continue fiber supplement 2-3 times per day. MiraLAX daily as needed constipation. Okay to resume PT biofeedback therapy at this time. No activity restrictions. Return to clinic as needed. 30 minutes spent on the date of encounter performing chart review, history and exam, documentation. Jason Davenport M.D., M.Sc. Professor and Chief, Division of Colon and Rectal Surgery Amado Chiang MD Endowed Chair, Colon & Rectal Surgery Department of Surgery [facility] Referring Provider: Zuly Ford MD [address] [facility] [address] [place] [address] Primary Care Provider: Benedict Haider documented in this encounter Nursing Notes * Maria R Katz - 04/18/2025 1:00 PM CDT Chief Complaint Patient presents with Post-op Visit Vitals: 04/18/25 1312 BP: 108/74 BP Location: Left arm Patient Position: Sitting Cuff Size: Adult Regular Pulse: 70 SpO2: 98% Weight: 167 lb 9.6 oz Height: 5' 4 Body mass index is 28.77 kg/m??. Maria R Katz CMA documented in this encounter Plan of Treatment Upcoming Encounters Date Type Department Care Team (Late st Contact Info) Description 08/30/2025 1:30 PM BONE DENSITY TECHNICIAN Office Visit [facility] [place] [address] [facility] [address] [place] [address] Chaya Osei, PA-C [address] [place], [place] [phone] documented as of this encounter Goals Goal Patient Goal Type Associated Problems Recent Progress Patient-Stated? Author MYC ECC SURG ENROLL Care Plan MyC ECC SURG ENROLL No Martha Swartz Care pathway for general surgery Care Plan Care pathway for general surgery No [facility] ECC SURG DAY 10 MED Care Plan Care pathway for general surgery No [facility] documented as of this encounter Visit Diagnoses Diagnosis Follow-up examination after colorectal surgery- Primary Follow-up examination, following other surgery documented in this encounter Additional Health Concerns Active Problems Noted Date Diagnosed Date MyC ECC SURG ENROLL 09/21/2024 Care pathway for general surgery 12/09/2024 documented as of this encounter Care Teams Industrial Commercial Groundskeeper Relationship Specialty Start Date End Date Benedict Haider MD [facility] [address] [place] [address] PCP - General Family Medicine 03/08/25 Lisa Spencer MD [address] [facility] [address] [place] [address] Hospitalist Endocrinology, Diabetes, and Metabolism 06/13/22 Jason Davenport MD [address] [place] [address] [address] [place] [address] Colon & Rectal 07/27/24 Chaya Osei, PAMateoC [address] [place] [address] Assigned Surgical Provider 02/14/25 documented as of this encounter
--- OUTSIDE RECORDS SUMMARY | 2025-05-16 09:29 | XMS_ITS | Encounter Summary ---
Author Organization [place] Address [address] [place] [address]. [place] [address] Care Team Providers Care Funding Analyst Name Role Phone Lisa Spencer MD Unavailable [phone] Lisa Spencer MD Unavailable [phone] Chaya Osei PA-C Unavailable [phone] Jason Davenport MD Unavailable Benedict Haider MD Primary Care Provider [phone] Zuly Ford MD Unavailable [phone] Chaya Osei PA-C Unavailable [phone] Encounter Details Date Type Department Care Team (Late st Contact Info) Description 10/11/2024 MyC Medical Advice [facility] [address] [place] [address] Dasha Padilla, RN Social History Tobacco Use Types Packs/Day Years Used Date Smoking Tobacco: Former Cigarettes 0.3 7 0 09/25/1999 - 09/25/2006 Smokeless Tobacco: Never Comments:Quit 2-07 PHQ-2 Answer Date Recorded PHQ-2 Score 0 10/06/2024 Adolescent Education Answer Date Record ed Getting School Help Needed Not on file 05/18 Comments No Sex and Gender Information Value Date Recorded Sex Assigned at Not on file Legal Sex Female 4:22 AM CANAL EQUIPMENT MECHANIC Gender Identity Not on file Sexual Orientation Not on file documented as of this encounter Plan of Treatment Upcoming Encounters Date Type Department Care Team (Late st Contact Info) Description 08/30/2025 1:30 PM CANAL EQUIPMENT MECHANIC Office Visit [facility] [place] [address] [place] [address] Chaya Osei PA-C [address] [place], [place] [address] documented as of this encounter Goals Goal Patient Goal Type Associated Problems Recent Progress Patient-Stated? Author MYC ECC SURG ENROLL Care Plan MyC ECC SURG ENROLL No Martha Swartz documented as of this encounter Visit Diagnoses Not on filedocumented in this encounter Additional Health Concerns Active Problems Noted Date Diagnosed Date MyC ECC SURG ENROLL 09/21/2024 documented as of this encounter Care Teams Funding Analyst Relationship Specialty Start Date End Date Benedict Haider MD [facility] [address] [place] [address] PCP - General Family Medicine 03/08/25 Lisa Spencer MD [address] [facility] 200 [place] [address] Hospitalist Endocrinology, Diabetes, and Metabolism 06/13/22 Lisa Spencer MD [address] [facility] [address] [place], [place] [address] Assigned Endocrinology Provider 10/19/22 10/16/24 Chaya Osei PA-C 9 [place] [address] Assigned Surgical Provider 05/17/24 10/16/24 Jason Davenport MD [address] [facility] [address] [place] [address] Colon & Rectal 07/27/24 Zuly Ford MD [address] [facility] 394 [place], [place] [address] Assigned Surgical Provider 10/17/24 02/13/25 Chaya Osei, PAMateoC [address] [place], [place] [address] Assigned Surgical Provider 02/14/25 documented as of this encounter
--- OUTSIDE RECORDS SUMMARY | 2025-05-16 09:29 | XMS_ITS | Encounter Summary ---
Author Organization [place] Address [address] [place] [address]. [place] [address] Care Team Providers Care Tuckpointer Cleaner Caulker Name Role Phone Lisa Spencer MD Unavailable [phone] Jason Davenport MD Unavailable Benedict Haider MD Primary Care Provider Zuly Ford MD Unavailable Chaya Osei PA-C Unavailable Encounter Details Date Type Department Care Team (Late st Contact Info) Description 12/26/2024 MyC Medical Advice [facility] [address] [place] [address] Jason Davenport MD [address] [place] [address] 195 [place] [address] Social History Tobacco Use Types Packs/Day Years Used Date Smoking Tobacco: Former Cigarettes 0.3 7 0 09/25/1999 - 09/25/2006 Smokeless Tobacco: Never Comments:Quit 2-07 Alcohol Use Standard Drinks/Week Comments Not Currently 0 (1 standard drink = 0.6 oz pur e alcohol) PHQ-2 Answer Date Recorded PHQ-2 Score 0 10/06/2024 Adolescent Education Answer Date Record ed Getting School Help Needed Not on file 05/18 Interpersonal Safety Answer Date Record ed Do you feel physically and e motionally safe where you currently live? Yes 12/21/2024 Within the past 12 months, h ave you been hit, slapped, kicked or otherwise physically hurt by someone? No 12/21/2024 Within the past 12 months, h ave you been humiliated or emotionally abused in other ways by your partner or ex-partner? No 12/21/2024 Comments No Sex and Gender Information Value Date Recorded Sex Assigned at Not on file Legal Sex Female 4:22 AM GEAR ROOM KEEPER Gender Identity Not on file Sexual Orientation Not on file documented as of this encounter Plan of Treatment Upcoming Encounters Date Type Department Care Team (Late st Contact Info) Description 08/30/2025 1:30 PM GEAR ROOM KEEPER Office Visit [facility] [place] [address] [place] [address] Chaya Osei, PA-C [address] [place], [place] [address] documented as of this encounter Goals Goal Patient Goal Type Associated Problems Recent Progress Patient-Stated? Author MYC ECC SURG ENROLL Care Plan MyC ECC SURG ENROLL No Martha Swartz Care pathway for general surgery Care Plan Care pathway for general surgery No [facility] ECC SURG DAY 10 MED Care Plan Care pathway for general surgery No Jodi Blas documented as of this encounter Visit Diagnoses Not on filedocumented in this encounter Additional Health Concerns Active Problems Noted Date Diagnosed Date MyC ECC SURG ENROLL 09/21/2024 Care pathway for general surgery 12/09/2024 documented as of this encounter Care Teams Tuckpointer Cleaner Caulker Relationship Specialty Start Date End Date Benedict Haider MD [facility] [address]. [address] [place] [address] PCP - General Family Medicine 03/08/25 Lisa Spencer MD [address] [facility] [address] [place] [address] Hospitalist Endocrinology, Diabetes, and Metabolism 06/13/22 Jason Davenport MD [address] [facility] 195 [place], [place] [address] Colon & Rectal 07/27/24 Zuly Ford MD [address] [facility] [address] [place], [place] [address] Assigned Surgical Provider 10/17/24 02/13/25 Chaya Osei, PAMateoC [address] [place], [place] [address] Assigned Surgical Provider 02/14/25 documented as of this encounter
--- OUTSIDE RECORDS SUMMARY | 2025-05-16 09:29 | XMS_ITS | Encounter Summary ---
Author Organization [place] Address [address] [place] [address]. [place] [address] Care Team Providers Care E Learning Manager Name Role Phone Lisa Spencer MD Unavailable [phone] Jason Davenport MD Unavailable Benedict Haider MD Primary Care Provider Zuly Ford MD Unavailable [phone] Chaya Osei PA-C Unavailable [phone] Encounter Details Date Type Department Care Team (Late st Contact Info) Description 12/22/[address] [facility] [place] [address] [facility] [address] [place] [address] Zuly Ford MD [address] [facility] [address] [place] [address] Social History Tobacco Use Types [...] on file Legal Sex Female 4:22 AM CLINICAL SOCIAL WORK AIDE Gender Identity Not on file Sexual Orientation Not on file documented as of this encounter Plan of Treatment Upcoming Encounters Date Type Department Care Team (Late st Contact Info) Description 08/30/2025 1:30 PM CLINICAL SOCIAL WORK AIDE Office Visit [facility] [place] [address] [place] [address] Chaya Osei PAMateoC [address] [place], [place] [address] documented as of this encounter Goals Goal Patient Goal Type Associated Problems Recent Progress Patient-Stated? Author MYC ECC SURG ENROLL Care Plan MyC ECC SURG ENROLL No Martha Swartz Care pathway for general surgery Care Plan Care pathway for general surgery No [facility] DAY 10 MED Care Plan Care pathway for general surgery No Jodi Blas documented as of this encounter Visit Diagnoses Not on filedocumented in this encounter Additional Health Concerns Active Problems Noted Date Diagnosed Date MyC ECC SURG ENROLL 09/21/2024 Care pathway for general surgery 12/09/2024 documented as of this encounter Care Teams E Learning Manager Relationship Specialty Start Date End Date Benedict Haider MD [facility] [address]. [place] [address] PCP - General Family Medicine 03/08/25 Lisa Spencer MD [address] [facility] [address] [place] [address] Hospitalist Endocrinology, Diabetes, and Metabolism 06/13/22 Jason Davenport MD [address] [facility] [address] [place], [place] [address] Colon & Rectal 07/27/24 Zuly Ford MD [address] [facility] [address] [place], [place] [address] Assigned Surgical Provider 10/17/24 02/13/25 Chaya Osei, PAMateoC [address] [place] [address] [id number] Assigned Surgical Provider 02/14/25 documented as of this encounter
--- OUTSIDE RECORDS SUMMARY | 2025-05-16 09:29 | XMS_ITS | Encounter Summary ---
Author Organization [place] Address [address] [place] [address]. 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 Gender Identity Not on file Sexual Orientation Not on file documented as of this encounter Plan of Treatment Upcoming Encounters Date Type Department Care Team (Late st Contact Info) Description 08/30/2025 1:30 PM TRAIN RESERVATION CLERK Office Visit [facility] [place] [address] [place] [address] Chaya Osei PA-C [address] [place] [address] documented as of this encounter Goals Goal [...] documented as of this encounter Care Teams Fine Unhairer Relationship Specialty Start Date End Date Benedict Haider MD [facility] [address]. [place] [address] PCP - General Family Medicine 03/08/25 Lisa Spencer MD [address] [facility] 200 [place] [address] Hospitalist Endocrinology, Diabetes, and Metabolism 06/13/22 Jason Davenport MD [address] [place] [address] 195 [place] [address] Colon & Rectal 07/27/24 Zuly Ford MD [address] [place] [address] 394 [place], [place] [id number] Assigned Surgical Provider 10/17/24 02/13/25 Chaya Osei, PAMateoC [address] [place] [address] Assigned Surgical Provider 02/14/25 documented as of this encounter
--- OUTSIDE RECORDS SUMMARY | 2025-05-16 09:29 | XMS_ITS | Encounter Summary ---
Author Organization [place] Address [address] [place] [address]. [place] [address] Care Team Providers Care Transporter Driver Name Role Phone Lisa Spencer MD Unavailable [phone] Jason Davenport MD Unavailable [phone] Benedict Haider MD Primary Care Provider Zuly Ford MD Unavailable [phone] Chaya Osei PA-C Unavailable [phone] Encounter Details Date Type Department Care Team (Late st Contact Info) Description 12/06/2024 MyC Medical Advice [facility] [address] 5[address] [place] [address] Elena Aldridge V, RN Social History Tobacco Use Types Packs/Day [...] on file 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 Author MYC ECC SURG ENROLL Care Plan MyC ECC SURG ENROLL No Maxime Martha A documented as of this encounter Visit Diagnoses Not on filedocumented in this encounter Additional Health Concerns Active Problems Noted Date Diagnosed Date MyC ECC SURG ENROLL 09/21/2024 documented as of this encounter Care Teams Transporter Driver Relationship Specialty Start Date End Date Benedict Haider MD [facility] [address] [address] PCP - General Family Medicine 03/08/25 Lisa Spencer MD [address] [facility] 200 [place] [address] Hospitalist Endocrinology, Diabetes, and Metabolism 06/13/22 Jason Davenport MD 420 [facility] 195 [place], [place] [address] Colon & Rectal 07/27/24 Zuly Ford MD 420 [facility] 394 [place], [place] [address] Assigned Surgical Provider 10/17/24 02/13/25 Chaya Osei PA-C [address] [place], [place] [address] Assigned Surgical Provider 02/14/25 documented as of this encounter
--- OUTSIDE RECORDS SUMMARY | 2025-05-16 09:29 | XMS_ITS | Patient Health Record ---
Author Organization [facility] Address [address] [place] [address] [address] [place] [address] Care Team Providers Care Yarn Sizer Name Role Phone [facility] Benedict KEENAN C are Provider Unavailable Vance Richard Unavailable [phone] Gayathri Burkett Unavailable [phone] Jose Jett Unavailable [phone] Kami Finley Unavailable [phone] Allergies No Known Allergies Reason For Referral No Information Problems Problem Type SNOMED Code ICD Code Onset Dates Problem Status W/U Status Risk Notes Problem Backache (578198496) Dorsalgia, unspecified (M54.9) Active confirmed Problem Fibromyalgia (576768699) Fibromyalgia (M79.7) Active confirmed Problem Headache (81710562) Headache, unspecified (R51.9) Active confirmed Problem Low back pain (677380035) Low back pain, unspecified (M54.50) Active confirmed Problem Late effect of sprain and strain without mention of tendon injury (905.7) 4 Active confirmed Problem Muscle atrophy (68077611) Muscle wasting and atrophy, not elsewhere classified, unspecified site (M62.50) 4 Active confirmed Problem Headache (92917877) Headache (R51) 4 Active confirmed Problem Lumbar sprain (240176329) Sprain of ligaments of lumbar spine, initial encounter (S33.5XXA) 4 Active confirmed Problem Low back pain (624472911) Low back pain (M54.5) 4 Active confirmed Problem Cervicalgia (36667705) Cervicalgia (M54.2) 4 Active confirmed Problem Neck sprain (725576531) Neck sprain (847.0) 4 Active confirmed Vital Signs Blood pressure diastolic 70 mm Hg 06/10/2024 Height 63 in 06/10/2024 Blood pressure systolic 110 mm Hg 06/10/2024 Weight 166 lbs 06/10/2024 BMI 29.4 kg/m2 06/10/2024 Encounters Encounter Location Date Provider Diagnosis [facility] [address] [place] [address] 05/17/2024 Kami Wauchula Cervicalgia M54.2 ; Low back pain, unspecified M54.50 ; Dorsalgia, unspecified M54.9 and Fibromyalgia syndrome M79.7 [facility] [address] [place] [address] 05/31/2024 Kami Tushar Cervicalgia M54.2 ; Low back pain, unspecified M54.50 and Dorsalgia, unspecified M54.9 [facility] [address] [place] [address] 06/02/2024 Kami Tushar Cervicalgia M54.2 ; Low back pain, unspecified M54.50 and Dorsalgia, unspecified M54.9 [facility] [address] [place] [address] 06/07/2024 Gayathritasha Burkett Cervicalgia M54.2 ; Low back pain, unspecified M54.50 and Dorsalgia, unspecified M54.9 [facility] [address] [place] [address] 06/10/2024 Kami Tushar Cervicalgia M54.2 ; Low back pain, unspecified M54.50 and Dorsalgia, unspecified M54.9 [facility] [address] [place] [address] 06/10/2024 Vance Richard Cervicalgia M54.2 ; Dorsalgia, unspecified M54.9 ; Headache, unspecified R51.9 ; Low back pain, unspecified M54.50 and Fibromyalgia M79.7 [facility] [address] [place] [address] 06/16/2024 Jose Dovveson Cervicalgia M54.2 and Dorsalgia, unspecified M54.9 [facility] [address] [facility] [place] [address] 06/23/2024 Kami Tushar Cervicalgia M54.2 and Dorsalgia, unspecified M54.9 [facility] [address] [facility] [place] [address] 07/07/2024 Kami Wauchula Cervicalgia M54.2 and Dorsalgia, unspecified M54.9 [facility] [address] [facility] [place] [address] 07/14/2024 Kami Wauchula Cervicalgia M54.2 and Dorsalgia, unspecified M54.9 [facility] [address] [facility] [address] 07/28/2024 Kami Wauchula Cervicalgia M54.2 and Dorsalgia, unspecified M54.9 [facility] [address] [facility] [place] [address] 08/19/2024 Kami Tushar Cervicalgia M54.2 and Dorsalgia, unspecified M54.9 [facility] [address] [facility] [address] 08/23/2024 Kami Wauchula Cervicalgia M54.2 and Dorsalgia, unspecified M54.9 [facility] [address] [facility] [place] [address] 08/30/2024 Kami Wauchula Cervicalgia M54.2 and Dorsalgia, unspecified M54.9 [facility] [address] [facility] [address] 09/06/2024 Kami Tushar Cervicalgia M54.2 and Dorsalgia, unspecified M54.9 [facility] [address] [place] [address] 09/20/2024 Kami Wauchula Cervicalgia M54.2 and Dorsalgia, unspecified M54.9 [facility] [address] [facility] [place] [address] 09/13/2024 Vance Bowser Encounter Date Diagnosis (ICD Code) Assessment Notes Treatment Notes Treatment Clinical Notes Section Notes 05/17/2024 Cervicalgia (ICD-10 - M54.2) 05/31/2024 Cervicalgia (ICD-10 - M54.2) 06/02/2024 Cervicalgia (ICD-10 - M54.2) 06/07/2024 Cervicalgia (ICD-10 - M54.2) 06/10/2024 Cervicalgia (ICD-10 - M54.2) 06/10/2024 Cervicalgia (ICD-10 - M54.2) 1. The patient has kept 16 visits of therapy so far. She is reporting a total recovery score of 6 on a 10 point scale. She would like to continue with therapy. 2. Unfortunately, Harika has been suffering with bladder prolapse. She was recently in an emergency room. She would like to hold on lumbar MedX machine use. She would like to continue with treatment for her neck, scapulothoracic, and headache symptoms. She is showing some strength gains in the MedX equipment, although it seems to be going slowly. There remains tremendous upside rehabilitation potential in terms of more strength gains available to the patient. 3. Harika continues to treat at [facility]. I strongly support her continuing. 4. Today's evaluation occupied a full 25 minutes altogether including time spent preparing to see the patient and then providing this documentation. Prior to seeing the patient I did review previous office visit notes, therapy notes, exercise data, and imaging. 06/10/2024 Dorsalgia, unspecified (ICD-10 - M54.9) 1. The patient has kept 16 visits of therapy so far. She is reporting a total recovery score of 6 on a 10 point scale. She would like to continue with therapy. 2. Unfortunately, Harika has been suffering with bladder prolapse. She was recently in an emergency room. She would like to hold on lumbar MedX machine use. She would like to continue with treatment for her neck, scapulothoracic, and headache symptoms. She is showing some strength gains in the MedX equipment, although it seems to be going slowly. There remains tremendous upside rehabilitation potential in terms of more strength gains available to the patient. 3. Harika [facility] [place] [facility]. I strongly support her continuing. 4. Today's evaluation occupied a full 25 minutes altogether including time spent preparing to see the patient and then providing this documentation. Prior to seeing the patient I did review previous office visit notes, therapy notes, exercise data, and imaging. 06/16/2024 Cervicalgia (ICD-10 - M54.2) 06/23/2024 Cervicalgia (ICD-10 - M54.2) 07/07/2024 Cervicalgia (ICD-10 - M54.2) 07/14/2024 Cervicalgia (ICD-10 - M54.2) 07/28/2024 Cervicalgia (ICD-10 - M54.2) 08/19/2024 Cervicalgia (ICD-10 - M54.2) 08/23/2024 Cervicalgia (ICD-10 - M54.2) 08/30/2024 Cervicalgia (ICD-10 - M54.2) 09/06/2024 Cervicalgia (ICD-10 - M54.2) 09/20/2024 Cervicalgia (ICD-10 - M54.2) 09/20/2024 Dorsalgia, unspecified (ICD-10 - M54.9) 09/06/2024 Dorsalgia, unspecified (ICD-10 - M54.9) 08/30/2024 Dorsalgia, unspecified (ICD-10 - M54.9) 08/23/2024 Dorsalgia, unspecified (ICD-10 - M54.9) 08/19/2024 Dorsalgia, unspecified (ICD-10 - M54.9) 07/28/2024 Dorsalgia, unspecified (ICD-10 - M54.9) 07/14/2024 Dorsalgia, unspecified (ICD-10 - M54.9) 07/07/2024 Dorsalgia, unspecified (ICD-10 - M54.9) 06/23/2024 Dorsalgia, unspecified (ICD-10 - M54.9) 06/16/2024 Dorsalgia, unspecified (ICD-10 - M54.9) 06/10/2024 Headache, unspecified (ICD-10 - R51.9) 1. The patient has kept 16 visits of therapy so far. She is reporting a total recovery score of 6 on a 10 point scale. She would like to continue with therapy. 2. Unfortunately, Harika has been suffering with bladder prolapse. She was recently in an emergency room. She would like to hold on lumbar MedX machine use. She would like to continue with treatment for her neck, scapulothoracic, and headache symptoms. She is showing some strength gains in the MedX equipment, although it seems to be going slowly. There remains tremendous upside rehabilitation potential in terms of more strength gains available to the patient. 3. Harika continues to treat at [facility]. I strongly support her continuing. 4. Today's evaluation occupied a full 25 minutes altogether including time spent preparing to see the patient and then providing this documentation. Prior to seeing the patient I did review previous office visit notes, therapy notes, exercise data, and imaging. 06/10/2024 Low back pain, unspecified (ICD-10 - M54.50) 06/07/2024 Low back pain, unspecified (ICD-10 - M54.50) 06/02/2024 Low back pain, unspecified (ICD-10 - M54.50) 05/31/2024 Low back pain, unspecified (ICD-10 - M54.50) 05/17/2024 Low back pain, unspecified (ICD-10 - M54.50) 05/17/2024 Dorsalgia, unspecified (ICD-10 - M54.9) 05/31/2024 Dorsalgia, unspecified (ICD-10 - M54.9) 06/02/2024 Dorsalgia, unspecified (ICD-10 - M54.9) 06/07/2024 Dorsalgia, unspecified (ICD-10 - M54.9) 06/10/2024 Dorsalgia, unspecified (ICD-10 - M54.9) 06/10/2024 Low back pain, unspecified (ICD-10 - M54.50) 1. The patient has kept 16 visits of therapy so far. She is reporting a total recovery score of 6 on a 10 point scale. She would like to continue with therapy. 2. Unfortunately, Harika has been suffering with bladder prolapse. She was recently in an emergency room. She would like to hold on lumbar MedX machine use. She would like to continue with treatment for her neck, scapulothoracic, and headache symptoms. She is showing some strength gains in the MedX equipment, although it seems to be going slowly. There remains tremendous upside rehabilitation potential in terms of more strength gains available to the patient. 3. [facility]. I strongly support her continuing. 4. Today's evaluation occupied a full 25 minutes altogether including time spent preparing to see the patient and then providing this documentation. Prior to seeing the patient I did review previous office visit notes, therapy notes, exercise data, and imaging. 06/10/2024 Fibromyalgia (ICD-10 - M79.7) 1. The patient has kept 16 visits of therapy so far. She is reporting a total recovery score of 6 on a 10 point scale. She would like to continue with therapy. 2. Unfortunately, Harika has been suffering with bladder prolapse. She was recently in an emergency room. She would like to hold on lumbar MedX machine use. She would like to continue with treatment for her neck, scapulothoracic, and headache symptoms. She is showing some strength gains in the MedX equipment, although it seems to be going slowly. There remains tremendous upside rehabilitation potential in terms of more strength gains available to the patient. 3. Harika continues to treat at [facility] I strongly support her continuing. 4. Today's evaluation occupied a full 25 minutes altogether including time spent preparing to see the patient and then providing this documentation. Prior to seeing the patient I did review previous office visit notes, therapy notes, exercise data, and imaging. 05/17/2024 Fibromyalgia syndrome (ICD-10 - M79.7) 05/27/2024 Other Celina Simmons , am serving as a scribe to document services personally performed by Vance Richard MD, based upon my observations and the provider's statements to me. All documentation has been reviewed by the aforementioned doctor prior to being entered into the official medical record. Troy, Vance Richard MD attest that the above named individual is acting in scribe capacity, has observed my performance of the services and has documented them in accordance with my direction. The documentation recorded by the scribe accurately reflects the service I personally performed and the decisions made by me. 06/10/2024 Other Troy, Wilmer Henry , am serving as a scribe to document services personally performed by Vance Richard MD, based upon my observations and the provider's statements to me. All documentation has been reviewed by the aforementioned doctor prior to being entered into the official medical record. Vance Simmons MD attest that the above named individual is acting in scribe capacity, has observed my performance of the services and has documented them in accordance with my direction. The documentation recorded by the scribe accurately reflects the service I personally performed and the decisions made by me. 1. The patient has kept 16 visits of therapy so far. She is reporting a total recovery score of 6 on a 10 point scale. She would like to continue with therapy. 2. Unfortunately, Harika has been suffering with bladder prolapse. She was recently in an emergency room. She would like to hold on lumbar MedX machine use. She would like to continue with treatment for her neck, scapulothoracic, and headache symptoms. She is showing some strength gains in the MedX equipment, although it seems to be going slowly. There remains tremendous upside rehabilitation potential in terms of more strength gains available to the patient. 3. Harika continues to treat at [facility]. I strongly support her continuing. 4. Today's evaluation occupied a full 25 minutes altogether including time spent preparing to see the patient and then providing this documentation. Prior to seeing the patient I did review previous office visit notes, therapy notes, exercise data, and imaging. Plan Of Treatment No Information Insurance Providers Payer Name Payer Address Payer Phone Subscriber Number Group Number Insured Name Patient Relationship to Insured Coverage Start Date [facility]age End Date [facility] [address] [place] [id number] [phone] [id number] DocBrendenHarika Self - patient is the insured [facility] [address] [address] [place], [place] [phone] [id number] Harika Barriga Self - patient is the insured Medical (General) History Medical History History ICD Code Fibromyalgia Thyroid Problems Migraines Headaches Surgical History Surgery Date(Month/Year) Gallbladder removed 06/11/2012 Hospitalization History Reason Date(Month/Year) Bladder prolapse, constipation 05/2024
--- OUTSIDE RECORDS SUMMARY | 2025-05-16 09:29 | XMS_ITS | Encounter Summary ---
Author Organization [place] Address [address] [place] [address]. [place] [address] Care Team Providers Care Lead Section Supervisor Name Role Phone Lisa Spencer MD Unavailable [phone] Lisa Spencer MD Unavailable [phone] Chaya Oesi PA-C Unavailable [phone] Jason Davenport MD Unavailable Benedict Haider MD Primary Care Provider Zuly Ford MD Unavailable [phone] Chaya Osei PA-C Unavailable [phone] Encounter Details Date Type Department Care Team (Late st Contact Info) Description 09/22/[address] 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 [place] [address] [facility] [address] [place] [phone] Chaya Osei, PA-C [address] [place], [place] [id number] documented as of this encounter Goals Goal Patient Goal Type Associated Problems Recent Progress Patient-Stated? Author MYC ECC SURG ENROLL Care Plan MyC ECC SURG ENROLL No Martha Swartz documented as of this encounter Visit Diagnoses Not on filedocumented in this encounter Additional Health Concerns Active Problems Noted Date Diagnosed Date MyC ECC SURG ENROLL 09/21/2024 documented as of this encounter Care Teams Lead Section Supervisor Relationship Specialty Start Date End Date Benedict Haider MD [facility] [place] [facility] [address] [place] [address] PCP - General Family Medicine 03/08/25 Lisa Spencer MD [address] [facility] [address] [place], [place] [phone] Hospitalist Endocrinology, Diabetes, and Metabolism 06/13/22 Lisa Spencer MD [address] [facility] 200 [place], [place] [address] Assigned Endocrinology Provider 10/19/22 10/16/24 Chaya Osei, PA-C [address] [place], [place] [address] Assigned Surgical Provider 05/17/24 10/16/24 Jason Davenport MD [address] [address] Colon & Rectal 07/27/24 Zuly Ford MD [address] [address] Assigned Surgical Provider 10/17/24 02/13/25 Chaya Osei PA-C [address] [place] [address] Assigned Surgical Provider 02/14/25 documented as of this encounter
--- OUTSIDE RECORDS SUMMARY | 2025-05-16 09:29 | XMS_ITS | Encounter Summary ---
Author Organization [place] Address [address] [place] [address]. [place] [address] Care Team Providers Care K9 Handler Name Role Phone Lisa Spencer MD Unavailable [phone] Lisa Spencer MD Unavailable [phone] Chaya Osei PA-C Unavailable [phone] Jason Davenport MD Unavailable [phone] Benedict Haider MD Primary Care Provider Zuly Ford MD Unavailable [phone] Chaya Osei PA-C Unavailable [phone] Encounter Details Date Type Department Care Team (Late st Contact Info) Description 09/17/2024 MyC Medical Advice [facility] [address] [address] Carmelina Shah, RN Social History Tobacco Use Types Packs/Day [...] on file 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 Gender Identity Not on file Sexual Orientation Not on file documented as of this encounter Plan of Treatment Upcoming Encounters Date Type Department Care Team (Late st Contact Info) Description 08/30/2025 1:30 PM SOLAR CREW MEMBER Office Visit [facility] [place] [address] [place] [phone] Chaya Osei PA-C [address] [place], [place] [address] documented as of this encounter Visit Diagnoses Not on filedocumented in this encounter Care Teams K9 Handler Relationship Specialty Start Date End Date Benedict Haider MD [facility] [address] [address] PCP - General Family Medicine 03/08/25 Lisa Spencer MD [address] [facility] 200 [place] [address] Hospitalist Endocrinology, Diabetes, and Metabolism 06/13/22 Lisa Spencer MD [address] 200 [place] [address] Assigned Endocrinology Provider 10/19/22 10/16/24 Chaya Osei PA-C [address] [place] [address] Assigned Surgical Provider 05/17/24 10/16/24 Jason Davenport MD 420 [facility] 195 [place] [address] Colon & Rectal 07/27/24 Zuly Ford MD [address] [place] [address] [address] [place], [place] [address] Assigned Surgical Provider 10/17/24 02/13/25 Chaya Osei PA-C [address] [place] [address] Assigned Surgical Provider 02/14/25 documented as of this encounter
--- OUTSIDE RECORDS SUMMARY | 2025-05-16 09:29 | XMS_ITS | Encounter Summary ---
Author Organization [place] Address [address] [place] [address]. [place] [address] Care Team Providers Care Repeat Chief Name Role Phone Lisa Spencer MD Unavailable [phone] Jason Davenport MD Unavailable Benedict Haider MD Primary Care Provider Chaya Osei PA-C Unavailable [phone] Encounter Details Date Type Department Care Team (Late st Contact Info) Description 02/22/2025 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 Author MYC ECC SURG ENROLL Care Plan MyC ECC SURG ENROLL No Martha Swartz Care pathway for general surgery Care Plan Care pathway for general surgery No [facility] ECC SURG DAY 10 MED Care Plan Care pathway for general surgery No [facility] documented as of this encounter Visit Diagnoses Not on filedocumented in this encounter Additional Health Concerns Active Problems Noted Date Diagnosed Date MyC ECC SURG ENROLL 09/21/2024 Care pathway for general surgery 12/09/2024 documented as of this encounter Care Teams Repeat Chief Relationship Specialty Start Date End Date Benedict Haider MD [facility] [address], [place] [address] PCP - General Family Medicine 03/08/25 Lisa Spencer MD [address] [facility] 200 [place], [place] [address] Hospitalist Endocrinology, Diabetes, and Metabolism 06/13/22 Jason Davenport MD [address] [place] [address] 195 [place], [place] [address] Colon & Rectal 07/27/24 Chaya Osei, PAMateoC [address] [place] [address] Assigned Surgical Provider 02/14/25 documented as of this encounter
--- OUTSIDE RECORDS SUMMARY | 2025-05-16 09:29 | XMS_ITS | Encounter Summary ---
Author Organization [place] Address [address] [place] [address]. [place] [address] Care Team Providers Care Cemetery Workers Supervisor Name Role Phone Lisa Spencer MD Unavailable [phone] Jason Davenport MD Unavailable [phone] Benedict Haider MD Primary Care Provider Zuly Ford MD Unavailable Chaya Osei PA-C Unavailable [phone] Encounter Details Date Type Department Care Team (Late st Contact Info) Description 12/22/2024 MyC Medical Advice [facility] [address] 200 [place] [address] Jason Davenport MD [address] [place] [address] 195 [place] [address] Social History Tobacco Use Types [...] on file 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 Author MYC ECC SURG ENROLL Care Plan MyC ECC SURG ENROLL No Martha Swartz Care pathway for general surgery Care Plan Care [facility] for general surgery [facility] ECC SURG DAY 10 MED Care Plan Care pathway for general surgery No Jodi Blas documented as of this encounter Visit Diagnoses Not on filedocumented in this encounter Additional Health Concerns Active Problems Noted Date Diagnosed Date MyC ECC SURG ENROLL 09/21/2024 Care pathway for general surgery 12/09/2024 documented as of this encounter Care Teams Cemetery Workers Supervisor Relationship Specialty Start Date End Date Benedict Haider MD [facility] [address]. . [place] [address] PCP - General Family Medicine 03/08/25 Lisa Spencer MD [address] [facility] [place] 200 [place] [address] Hospitalist Endocrinology, Diabetes, and Metabolism 06/13/22 Jason Davenport MD [address] [facility] 195 [place], [place] [address] Colon & Rectal 07/27/24 Zuly Ford MD 420 [facility] 394 [place], [place] [address] Assigned Surgical Provider 10/17/24 02/13/25 Chaya Osei, PAMateoC [address] [place], [place] [address] Assigned Surgical Provider 02/14/25 documented as of this encounter
--- OUTSIDE RECORDS SUMMARY | 2025-05-16 09:29 | XMS_ITS | Clinical Summary ---
Author Organization [facility] Address [address] [place] [address] Care Team Providers Care Services Host Name Role Phone Gisela Steiner MD Primary Care Provider Source Comments You are receiving this document [...] for each transition of care or referral. [place] Allergies Active Allergy Reactions Criticality Noted Date Comments Bupropion 12/19/2004 PN: LW Reaction: SHORTNESS OF BREATH Ramelteon Other, see comments High 04/11/2023 Medications unknown medication Indications: PN: 5 Active unknown medication Indications: PN: 5 Active ALPRAZolam (XANAX) 0.5 MG tablet TK 1 T PO QHS PRF HOTEL OPERATION MANAGER 0 Active DULoxetine (CYMBALTA) 60 MG capsule Take 60 mg by mouth daily. Active clindamycin (CLEOCIN T) 1 % external solution Apply 1 mL topically two times a day. 2 Active diphenoxylate-a tropine (LOMOTIL) 2.5-0.025 MG tablet Take 1 Tablet by mouth three times a day as needed. 2 Active eszopiclone (LUNESTA) 2 MG tablet Take 2 mg by mouth daily at bedtime. 2 Active meclizine (ANTIVERT) 25 MG tablet Take 25 mg by mouth three times a day as needed. 2 Active traMADol (ULTRAM) 50 MG tablet Take 50 mg by mouth every 6 hours as needed. 2 Active levonorgestrel (MIRENA) 20 MCG/DAY IUD 1 Each by Intrauterine route once. Active levothyroxine (SYNTHROID) 75 MCG tablet Take 1 Tablet (75 mcg) by mouth daily. 3 Active naltrexone 1 mg/mL or susp 0.5 mg po nightly for 5 days, then increase by 0.5 mg every 5 days nightly until at 5 mg po nightly 180 mL 1 3 Active Active Problems Problem Noted Date Diagnosed Date Anxiety 04/24/2020 Immunizations Immunization Administration Dates Next Due Flu Vac (3+ yrs) 06/23/2003 Social History Tobacco Use Types Packs/Day Years Used Date Smoking Tobacco: Former Cigarettes Smokeless Tobacco: Never Tobacco Cessation:Counseling Given: Not Answered Alcohol Use Standard Drinks/Week Comments Not Currently 0 (1 standard drink = 0.6 oz pur e alcohol) Comments Unknown Sex and Gender Information Value Date Recorded Sex Assigned at Not on file Legal Sex Female 9:06 PM CDT Gender Identity Not on file Sexual Orientation Not on file Last Filed Vital Signs Vital Sign Reading Time Taken Comments Blood Pressure 99/72 09/12/2022 8:59 AM TRUCK TRAILER FINAL INSPECTOR Pulse 85 09/12/2022 8:59 AM TRUCK TRAILER FINAL INSPECTOR Temperature - - Respiratory Rate - - Oxygen Saturation - - Inhaled Oxygen Concentration - - Weight 76.2 kg (168 lb) 09/12/2022 8:59 AM TRUCK TRAILER FINAL INSPECTOR Height 162.6 cm (5' 4) 09/12/2022 8:59 AM TRUCK TRAILER FINAL INSPECTOR Body Mass Index 28.84 09/12/2022 8:59 AM TRUCK TRAILER FINAL INSPECTOR Plan of Treatment Health Maintenance Due Date Last Done Comments Cervical Cancer Screening Due 1981 Hep C Screening (Preventive Services) 1981 Mammogram 1981 HIV Screening (Preventive Services) 1997 Adult Preventive Visit 10/29/1999 HepB Vaccine (1) 2000 HPV Vaccine (1 - 3-dose SCDM series) 2008 DTaP/Tdap/Td Vaccine (2 - Tdap) 06/02/2022 06/02/2012, 10/21/2002 COVID-19 Vaccine ( - season) 2025 Influenza Vaccine (#1) 2025 0, 09/20/2009, 09/20/2009, Additional history exists Zoster/Shingles Vaccine (1 of 2) 10/29/2031 HepA Vaccine Aged Out No longer eligi ble based on patient's age to complete this topic Hib Vaccine Aged Out No longer eligi ble based on patient's age to complete this topic IPV (Polio) Vaccine Aged Out No longe r eligible based on patient's age to complete this topic MCV4 Vaccine Aged Out No longer eligi ble based on patient's age to complete this topic Meningococcal B Vaccine Aged Out No l onger eligible based on patient's age to complete this topic Pneumococcal Vaccine Aged Out No long er eligible based on patient's age to complete this topic Insurance [facility] Care Teams Services Host Relationship Specialty Start Date End Date Gisela Steiner MD [address] [place] [id number] PCP - General 11/27/10
--- OUTSIDE RECORDS SUMMARY | 2025-05-16 09:29 | XMS_ITS | Clinical Summary ---
Author Organization [facility] Address [address] [place] [address] Care Team Providers Care Asphalt Blender Name Role Phone Peter LolaBenedict Willis MD Primary Care Provider + Allergies Active Allergy Reactions Criticality Noted Date Comments Dtap-Ipv Component 1 Of 2 (Pf) Myalgia 06/11/2019 severe Povidone-Iodine Hives 05/02/2025 Ramelteon Shortness Of Breath,Palpitations 05/02/2025 Medications ALPRAZolam (XANAX) 0.5 mg tablet Take 1 tablet by mouth at bedtime if needed. 0 06/11/2019 Active eszopiclone (Lunesta) 3 mg tablet Take 3 mg by mouth at bedtime. Active levothyroxine (SYNTHROID) 88 mcg tablet Take 88 mcg by mouth once daily. Active Active Problems Problem Noted Date Diagnosed Date Tibialis tendonitis 04/27/2012 Encounters Date Type Department Care Team Description 05/09/2025 Telephone [facility] [address] [place] [address] Ashish Pierson MD Results 05/03/2025 Telephone [facility] [address] [place] [address] Ashish Pierson MD Results 05/02/2025 11:00 AM CDT Ancillary Procedure [facility] [address] [place] [address] 05/02/2025 10:20 AM CDT Office Visit [facility] [address] [place] [address] Ashish Pierson MD Allergies (URTICARIA, (referred by Dr Haider)) 05/02/2025 Travel from Last 3 Months Immunizations Immunization Administration Dates Next Due Influenza, IIV3 (Age >=3 years) 06/23/2003 Social History Tobacco Use Types Packs/Day Years Used Date Smoking Tobacco: Former Cigarettes Q uit: 05/21/2006 Smokeless Tobacco: Never Tobacco Cessation:Counseling Given: Not Answered Alcohol Use Standard Drinks/Week Comments Not Asked 0 (1 standard drink = 0.6 oz pur e alcohol) PHQ-2 Answer Date Recorded PHQ-2 Score 2 07/28/2019 Alcohol Use Answer Date Recorded How often do you have a drink containing alcohol ? 0 05/02/2025 Average Number of Drinks Not on file 025 Frequency of Binge Drinking Not on file 03/2025 Comments No Sex and Gender Information Value Date Recorded Sex Assigned at Not on file Legal Sex Female 1:21 PM CDT Gender Identity Not on file Sexual Orientation Not on file Obstetrics History Last Filed Vital Signs Vital Sign Reading Time Taken Comments Blood Pressure 102/71 05/02/2025 10:14 AM CDT Pulse 77 05/02/2025 10:14 AM CDT Temperature 36.3 C (97.3 F) 05/02/2025 10:14 AM CDT Respiratory Rate - - Oxygen Saturation 96% 05/02/2025 10:14 AM CDT Inhaled Oxygen Concentration - - Weight 74.2 kg (163 lb 9.6 oz) 05/02/2025 10:14 AM CDT Height 164.3 cm (5' 4.67) 05/02/2025 10:14 AM C DT Body Mass Index 27.51 05/02/2025 10:14 AM CDT Plan of Treatment Health Maintenance Due Date Last Done Comments Tetanus booster 1992 HIV for age 15-65 1996 Hepatitis C screening for age 18-79 10/29/1999 Hepatitis B series for 19+ (1 of 3 - 19+ 3-dose series) 2000 HPV series for age 9-45 (1 - 3-dose SCDM series) 2008 Depression screening for age 12+ 07/28/2020 07/28/2019 Pap test for age 21-65 10/24/2022 0, 10/25/2019, 11/06/2015, Additional history exists COVID-19 vaccine series ( - 2023- season) 2025 Influenza Vaccine (#1) 2025 06/23/2003 BMI (ht and wt on same day) for age 18+ 05/02/2026 05/02/2025, 06/11/2019 RSV vaccine for adults or (1 - 1-dose 75+ series) 2056 Pneumococcal series for age 6-49 Aged Out No longer eligible based on patient's age to complete this topic Procedures Procedure Name Priority Date/Time Associated Diagnosis Comments CBC WITH AUTO DIFFERENTIAL Routine 05/02/2025 11:13 AM CDT Urticaria, idiopathic T4,FREE Routine 05/02/2025 11:13 AM CDT Urticaria, idiopathic TSH Routine 05/02/2025 11:13 AM CDT Urticaria, idiopathic SEDIMENTATION RATE Routine 05/02/2025 11 :13 AM CDT Urticaria, idiopathic TRYPTASE Routine 05/02/2025 11:13 AM CDT Urticaria, idiopathic HEPATIC FUNCTION PANEL Routine 11:13 AM CDT Urticaria, idiopathic BASIC METABOLIC PANEL Routine 05/02/2025 11:13 AM CDT Urticaria, idiopathic CBC WITH AUTO DIFFERENTIAL Routine 05/02/2025 11:13 AM CDT Urticaria, idiopathic XR CHEST 2 VIEWS PA AND LATERAL Routine 05/02/2025 10:58 AM CDT Urticaria, idiopathic RN AMBULATORY THIN PREP PAP SCREEN IMAGED Routine 10/25/2019 10:00 AM SOFTWARE TECHNICIAN from Last 3 Months or Most Recently Relevant to Health Maintenance Results * SEDIMENTATION RATE (05/02/2025 11:13 AM CDT) Pathologist [facility] SED RATE BY MODIFIED MADALYNREN 6 < OR = 20 mm/h 05/03/2025 6:07 AM CDT [facility] Blood BLOOD SPECIMEN / Unknown [facility] / Unknown 05/02/2025 11:13 AM CDT 05/02/2025 11:13 AM CDT Ashish Pierson MD HEMATOLOGY Final Resu lt Performing Organization Address [facility]/ZIP Co de Phone Number [facility] [address] [address], [place] [phone] * TRYPTASE (05/02/2025 11:13 AM CDT) [facility] TRYPTASE 5.1 <11.0 mcg/L 05/08/2025 1:31 AM CDT [facility] Blood BLOOD SPECIMEN / Unknown [facility] / Unknown 05/02/2025 11:13 AM CDT 05/02/2025 11:13 AM CDT Ashish Pierson MD SEND OUTS Final Resu lt Performing Organization Address [facility] de Phone Number [facility] [address] [address], [place] [phone] * (ABNORMAL) CBC WITH AUTO DIFFERENTIAL (05/02/2025 11:13 AM CDT) [facility] WHITE BLOOD CELL COUNT 6.6 3.8 - 10.8 Thousand/ uL 05/03/2025 3:57 AM CDT [facility] RED BLOOD CELL COUNT 4.93 3.80 - 5.10 Million/u L 05/03/2025 3:57 AM CDT [facility] HEMOGLOBIN 14.6 11.7 - 15.5 g/dL 05/03/2025 3:57 AM CDT [facility] HEMATOCRIT 45.1(H) 35.0 - 45.0 % 05/03/2025 3:57 AM CDT [facility] MCV 91.5 80.0 - 100.0 fL 05/03/2025 3:57 AM CDT [facility] MCH 29.6 27.0 - 33.0 pg 05/03/2025 3:57 AM CDT [facility] MCHC 32.4 32.0 - 36.0 g/dL 05/03/2025 3:57 AM CDT [facility] Comment: For adults, a slight decrease in the calculated MCHC value (in the range of 30 to 32 g/dL) is most likely not clinically significant; however, it should be interpreted with caution in correlation with other red cell parameters and the patient's clinical condition. RDW 12.4 11.0 - 15.0 % 05/03/2025 3:57 AM CDT [facility] PLATELET COUNT 288 140 - 400 Thousand/ uL 05/03/2025 3:57 AM CDT [facility] MPV 12.2 7.5 - 12.5 fL 05/03/2025 3:57 AM CDT [facility] NEUTROPHILS 62.7 % 05/03/2025 3:57 AM CDT [facility] LYMPHOCYTES 27.4 % 05/03/2025 3:57 AM CDT [facility] MONOCYTES 6.5 % 05/03/2025 3:57 AM CDT [facility] EOSINOPHILS 2.0 % 05/03/2025 3:57 AM CDT [facility] BASOPHILS 1.4 % 05/03/2025 3:57 AM CDT [facility] ABSOLUTE NEUTROPHILS 4138 1500 - 7800 cells/uL 05/03/2025 3:57 AM CDT [facility] ABSOLUTE LYMPHOCYTES 1808 850 - 3900 cells/uL 05/03/2025 3:57 AM CDT [facility] ABSOLUTE MONOCYTES 429 200 - 950 cells/uL 05/03/2025 3:57 AM CDT [facility] ABSOLUTE EOSINOPHILS 132 15 - 500 cells/uL 05/03/2025 3:57 AM CDT [facility] ABSOLUTE BASOPHILS 92 0 - 200 cells/uL 05/03/2025 3:57 AM CDT [facility] Blood BLOOD SPECIMEN / Unknown [facility] / Unknown 05/02/2025 11:13 AM CDT 05/02/2025 11:13 AM CDT us Ashish Pierson MD HEMATOLOGY Final Resu lt [facility] [address] [address], * TSH (05/02/2025 11:13 AM CDT) TSH 0.81 mIU/L 05/03/2025 6:01 AM CDT [facility] Comment: Reference Range > or = 20 Years 0.40-4.50 Ranges First trimester 0.26-2.66 Second trimester 0.55-2.73 Third trimester 0.43-2.91 Blood BLOOD SPECIMEN / Unknown [facility] / Unknown 05/02/2025 11:13 AM CDT 05/02/2025 11:13 AM CDT Ashish Pierson MD CHEMISTRY Final Resu lt Performing Organization Address [facility]/ZIP Co de Phone Number [facility] [address] [address], * T4,FREE (05/02/2025 11:13 AM CDT) T4, FREE 1.2 0.8 - 1.8 ng/dL 05/03/2025 6:01 AM CDT [facility] Blood BLOOD SPECIMEN / Unknown [facility] / Unknown 05/02/2025 11:13 AM CDT 05/02/2025 11:13 AM CDT Ashish Pierson MD CHEMISTRY Final Resu lt Performing Organization Address [facility]/ZIP Co de Phone Number [facility] [address] [address], * HEPATIC FUNCTION PANEL (05/02/2025 11:13 AM CDT) ALBUMIN 4.8 3.6 - 5.1 g/dL 05/03/2025 4:47 AM CDT [facility] PROTEIN, TOTAL 7.6 6.1 - 8.1 g/dL 05/03/2025 4:47 AM CDT [facility] BILIRUBIN, TOTAL 0.8 0.2 - 1.2 mg/dL 05/03/2025 4:47 AM CDT [facility] BILIRUBIN, DIRECT 0.1 < OR = 0.2 mg/dL 05/03/2025 4:47 AM CDT [facility] BILIRUBIN, INDIRECT 0.7 0.2 - 1.2 mg/dL (calc) 05/03/2025 4:47 AM CDT [facility] ALKALINE PHOSPHATASE 61 31 - 125 U/L 05/03/2025 4:47 AM CDT [facility] ALT 22 6 - 29 U/L 05/03/2025 4:47 AM CDT [facility] AST 18 10 - 30 U/L 05/03/2025 4:47 AM CDT [facility] GLOBULIN 2.8 1.9 - 3.7 g/dL (calc) 05/03/2025 4:47 AM CDT [facility] ALBUMIN/GLOBULIN RATIO 1.7 1.0 - 2.5 (calc) 05/03/2025 4:47 AM CDT [facility] Blood BLOOD SPECIMEN / Unknown [facility] / Unknown 05/02/2025 11:13 AM CDT 05/02/2025 11:13 AM CDT us Ashish Pierson MD CHEMISTRY Final Resu lt [facility] [address] [place] [address], * BASIC METABOLIC PANEL (05/02/2025 11:13 AM CDT) SODIUM 137 135 - 146 mmol/L 05/03/2025 4:47 AM CDT [facility] POTASSIUM 4.5 3.5 - 5.3 mmol/L 05/03/2025 4:47 AM CDT [facility] CARBON DIOXIDE 28 20 - 32 mmol/L 05/03/2025 4:47 AM CDT [facility] GLUCOSE 89 65 - 99 mg/dL 05/03/2025 4:47 AM CDT [facility] Comment: Fasting reference interval CALCIUM 9.9 8.6 - 10.2 mg/dL 05/03/2025 4:47 AM CDT [facility] CREATININE 0.77 0.50 - 0.99 mg/dL 05/03/2025 4:47 AM CDT [facility] BUN/CREATININE RATIO SEE NOTE: 6 - 22 (calc) 05/03/2025 4:47 AM CDT [facility] Comment: Not Reported: BUN and Creatinine are within reference range. EGFR 98 > OR = 60 mL/min/1. 73m2 05/03/2025 4:47 AM CDT [facility] UREA NITROGEN (BUN) 8 7 - 25 mg/dL 05/03/2025 4:47 AM CDT [facility] ELECTROLYTE BALANCE 7 7 - 17 mmol/L (calc) 05/03/2025 4:47 AM CDT [facility] CHLORIDE 102 98 - 110 mmol/L 05/03/2025 4:47 AM CDT [facility] Blood BLOOD SPECIMEN / Unknown [facility] / Unknown 05/02/2025 11:13 AM CDT 05/02/2025 11:13 AM CDT Ashish Pierson MD CHEMISTRY Final Resu lt [facility] [address] [place] [address], * XR CHEST 2 VIEWS PA AND LATERAL (05/02/2025 10:58 AM CDT) Anatomical Region Laterality Modality CHEST, THORAX, Lung, HEART Compu lily Radiography 05/02/2025 12:1 9 PM CDT Impressions 05/02/2025 12:19 PM CDT No acute findings. Dictated by Benedict Cuello MD @ 05/02/2025 12:19:01 PM (Electronically Signed) Narrative 05/02/2025 12:19 PM CDT For Patients: As a result of the Century Cures Act, medical imaging exams and procedure reports are released immediately into your electronic medical record. You may view this report before your referring provider. If you have questions, please contact your health care provider. INDICATION: Urticaria, idiopathic TECHNIQUE: Chest 2 views COMPARISON: None FINDINGS: Cardiovascular and mediastinum: Heart size and vasculature are normal in caliber and appearance. Lungs and pleural spaces: Lungs are clear. No sign of infiltrate or mass. No sign of pleural effusion. No pneumothorax. Bones and soft tissues: No significant findings. Procedure Note Benedict Cuello MD - 05/02/2025 For Patients: As a result of the Cures Act, medical imagingexams and procedure reports are released immediately into your electronicmedical record. You may view this report before your referring provider.If you have questions, please contact your health care provider. INDICATION: Urticaria, idiopathic TECHNIQUE: Chest 2 views COMPARISON: None FINDINGS: Cardiovascular and mediastinum: Heart size and vasculature are normal incaliber and appearance. Lungs and pleural spaces: Lungs are clear. No sign of infiltrate ormass. No sign of pleural effusion. No pneumothorax. Bones and soft tissues: No significant findings. IMPRESSION: No acute findings. Dictated by Benedict Cuello MD @ 05/02/2025 12:19:01 PM (Electronically Signed) Ashish Pierson MD GENERAL IMAGING Final Resu lt * RN AMBULATORY THIN PREP PAP SCREEN IMAGED (10/25/2019 10:00 AM SOFTWARE TECHNICIAN) Case Report Gynecologic Cytology Report Case: [id number] Authorizing Provider: Jess Lomeli Collected: 10/25/2019 1000 MMD Ordering Location: [facility] Received: 10/26/2019 1609 First Screen: Sg Reddy Specimen: RN AMBULATORY ThinPrep Vial Screening, Cervical/Vaginal 11/02/2019 4:07 PM CDT [facility] INTERPRETATION/ RESULT NEGATIVE FOR INTRAEPITHELIAL LESION OR MALIGNANCY (NIL) (none) 11/02/2019 4:07 PM CDT [facility] at 1607 CDT SPECIMEN ADEQUACY Satisfactory for evaluation Endocervical component present 11/02/2019 4:07 PM CDT [facility] HPV REQUEST HPV and PAP 11/02/2019 4:07 PM CDT [facility] Date of LMP 10/18/2019 11/02/2019 4:07 PM CDT [facility] Last Pap Date 11/06/2015 11/02/2019 4:07 PM CDT [facility] Additional Information 11/02/2019 4:07 PM T [facility] Comment: Interpreted at [facility] - [address], [place] [address] Automated Review Successful 11/02/2019 4:07 PM T [facility] Comment:Specimen processed s uccessfully by automated professor of latin american studies device, HandsPrep Imaging System, [employer] ANCILLARY TESTING RN AMBULATORY HPV Ordered, Please see separate report 11/02/2019 4:07 PM T [facility] Note The pap test is a screening technique, not a diagnostic procedure. It is used primarily to screen for squamous cancers and precursor lesions. Published studies have shown that it is subject to both false negative and false positive results. The pap test should not be used as the sole means to diagnose or exclude pre-malignant and malignant lesions. 11/02/2019 4:07 PM [facility] Other (Cervical/Vagina l) 10/25/2019 10:00 AM SOFTWARE TECHNICIAN 10/26/2019 4:09 PM SOFTWARE TECHNICIAN us Jess Lomeli MD PATHOLOGY/CYTOLOGY Final Result [facility] [address] [place] [address], [place] from Last 3 Months or Most Recently Relevant to Health Maintenance Additional Health Concerns Infection Onset Date Last Indicated Rule-Out C.diff 06/14/2019 06/14/2019 Insurance [facility] [employer] [facility] Care Teams Asphalt Blender Relationship Specialty Start Date End Date Benedict Haider MD [address] [place] [address] PCP - General Family Practice 06/11/19 Lola Cheng 03/30/18
--- OUTSIDE RECORDS SUMMARY | 2025-05-16 09:29 | XMS_ITS | Encounter Summary ---
Author Organization [facility] Address [address] [place] [address]. [place] [address] Care Team Providers Care Ton Container Shipper Name Role Phone Lisa Spencer MD Unavailable [phone] Lisa Spencer MD Unavailable [phone] Chaya Osei PA-C Unavailable [phone] Jason [place] MD Unavailable Benedict Haider MD Primary Care Provider [phone] Zuly Ford MD Unavailable [phone] Chaya Osei PA-C Unavailable [phone] Encounter Details Date Type Department Care Team (Late st Contact Info) Description 10/12/2024 MyC Medical Advice [facility] [address] [place] [address] Marcelina Fernando, PT [facility] [address] [id number] Social History Tobacco Use Types Packs/Day Years [...] on file 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 Gender Identity Not on file Sexual Orientation Not on file documented as of this encounter Plan of Treatment Upcoming Encounters Date Type Department Care Team (Late st Contact Info) Description 08/30/2025 1:30 PM PHARMACIST HOSPITAL Office Visit [facility] [place] [address] [place] [phone] Chaya Osei, PAMateoC [address] [place] [address] documented as of this encounter [...] documented as of this encounter Care Teams Ton Container Shipper Relationship Specialty Start Date End Date Benedict Haider MD [facility] [address] [place] [address] PCP - General Family Medicine 03/08/25 Lisa Spencer MD [address] [facility] [address] [place], [place] [address] Hospitalist Endocrinology, Diabetes, and Metabolism 06/13/22 Lisa Spencer MD [address] [facility] [address] [place], [place] [address] Assigned Endocrinology Provider 10/19/22 10/16/24 Chaya Osei, PA-C [address] [place], [place] [id number] Assigned Surgical Provider 05/17/24 10/16/24 Jason [place] MD [address] [facility] 195 [place] [address] Colon & Rectal 07/27/24 Zuly Ford MD [address] [facility] [address] [place] [address] Assigned Surgical Provider 10/17/24 02/13/25 Chaya Osei PA-C [address] [place] [address] Assigned Surgical Provider 02/14/25 documented as of this encounter
--- OUTSIDE RECORDS SUMMARY | 2025-05-16 09:29 | XMS_ITS | Encounter Summary ---
Author Organization [facility] Address [address] [place] [address]. 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 Gender Identity Not on file Sexual Orientation Not on file documented as of this encounter Plan of Treatment Upcoming Encounters Date Type Department Care Team (Late st Contact Info) Description 08/30/2025 1:30 PM SWABBER Office Visit [facility] [place] [address] [place] [address] Chaya Osei, PA-C [address] [place] [address] documented as of this encounter Goals [...] documented as of this encounter Care Teams Mathematical Engineering Technician Relationship Specialty Start Date End Date Benedict Haider MD [facility] [address] [address] PCP - General Family Medicine 03/08/25 Lisa Spencer MD [address] [facility] 200 [place] [address] Hospitalist Endocrinology, Diabetes, and Metabolism 06/13/22 Jason [place] MD [address] [place] [address] [address] [place], [place] [address] Colon & Rectal 07/27/24 Zuly Ford MD [address] [place] [address] [address] [place], [place] [id number] Assigned Surgical Provider 10/17/24 02/13/25 Chaya Osei [facility] [address] [place] [id number] Assigned Surgical Provider 02/14/25 documented as of this encounter
--- OUTSIDE RECORDS SUMMARY | 2025-05-16 09:29 | XMS_ITS | Encounter Summary ---
Author Organization [facility] Address [address] [place] [address]. [place] [address] Care Team Providers Care Canvas Worker Name Role Phone Lisa Spencer MD Unavailable [phone] Lisa Spencer MD Unavailable [phone] Chaya Osei PA-C Unavailable [phone] Jason [place] MD Unavailable Benedict Haider MD Primary Care Provider Zuly Ford MD Unavailable [phone] Chaya Osei PA-C Unavailable [phone] Encounter Details Date Type Department Care Team (Late st Contact Info) Description 09/21/2024 MyC Medical Advice [facility] [address] [address] Martha Swartz Social History Tobacco Use [...] on file 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 Author MYC ECC SURG ENROLL Care Plan MyC ECC SURG ENROLL No Martha Swartz documented as of this encounter Visit Diagnoses Not on filedocumented in this encounter Additional Health Concerns Active Problems Noted Date Diagnosed Date MyC ECC SURG ENROLL 09/21/2024 documented as of this encounter Care Teams Canvas Worker Relationship Specialty Start Date End Date Benedict Haider MD [facility] [address] [place] [address] PCP - General Family Medicine 03/08/25 Lisa Spencer MD [address] [facility] 200 [place] [address] Hospitalist Endocrinology, Diabetes, and Metabolism 06/13/22 Lisa Spencer MD [address] [facility] 200 [place] [address] Assigned Endocrinology Provider 10/19/22 10/16/24 Chaya Osei PA-C [address] [place] [address] Assigned Surgical Provider 05/17/24 10/16/24 Jason [place] MD [address] [place] [address] 195 [place], [place] [phone] Colon & Rectal 07/27/24 Zuly Ford MD [address] [facility] 394 [place] [address] Assigned Surgical Provider 10/17/24 02/13/25 Chaya Osei PA-C [address] [place] [address] Assigned Surgical Provider 02/14/25 documented as of this encounter
--- OUTSIDE RECORDS SUMMARY | 2025-05-16 09:30 | XMS_ITS | Encounter Summary ---
Author Organization [facility] Address [address] [place] [address]. [place] [address] Care Team Providers Care Digester Operator Helper Name Role Phone No Ref-Primary, Physician Primary Care Provider Lisa Spencer MD Unavailable [phone] Lisa Spencer MD Unavailable [phone] Chaya OseiC Unavailable [phone] Jason Davenport MD Unavailable Benedict Haider MD Primary Care Provider Zuly Ford MD Unavailable Chaya OseiC Unavailable [phone] Encounter Details Date Type Department Care Team (Late st Contact Info) Description 04/23/2024 [facility] [place] 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 [place] [address] [place] [phone] Chaya Osei, PA-C [address] [place] [address] documented as of this encounter Visit Diagnoses Not on filedocumented in this encounter Care Teams Digester Operator Helper Relationship Specialty Start Date End Date No Ref-Primary, Physician PCP - General 06/13/22 08/10/24 Benedict Haider MD [facility] - [facility] [address] [place] [address] PCP - General Family Medicine 03/08/25 Lisa Spencer MD [address] [facility] [address] [place] [address] Hospitalist Endocrinology, Diabetes, and Metabolism 06/13/22 Lisa Spencer MD [address] [place], [place] [address] Assigned Endocrinology Provider 10/19/22 10/16/24 Chaya Osei, PA-C [address] [place], [place] [address] Assigned Surgical Provider 05/17/24 10/16/24 Jason Davenport MD [address] [facility] 195 [place], [place] [address] Colon & Rectal 07/27/24 Zuly Ford MD [address] [facility] 394 [place] [address] Assigned Surgical Provider 10/17/24 02/13/25 Chaya Osei, PAMateoC [address] [place] [address] Assigned Surgical Provider 02/14/25 documented as of this encounter
--- OUTSIDE RECORDS SUMMARY | 2025-05-16 09:30 | XMS_ITS | Encounter Summary ---
Author Organization [facility] Address [address] [place] [address]. [place] [address] Care Team Providers Care Metal Drilling Machine Operator Name Role Phone Lisa Spencer MD Unavailable [phone] Jason Davenport MD Unavailable Benedict Haider MD Primary Care Provider Chaya Osei PA-C Unavailable Encounter Details Date Type Department Care Team (Latest Contact Info) Description 04/14/2025 Travel Social History Tobacco Use Types Packs/Day [...] Answer Date Recorded Do you have housing? 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 Gender Identity Not on file Sexual Orientation Not on file documented as of this encounter Plan of Treatment Upcoming Encounters Date Type Department Care Team (Late st Contact Info) Description 08/30/2025 1:30 PM COIL SPRING ASSEMBLER Office Visit [facility] [place] [address] [place] [address] Chaya Osei, PAMateoC [address] [place] [address] documented as of this encounter Goals Goal [...] documented as of this encounter Care Teams Metal Drilling Machine Operator Relationship Specialty Start Date End Date Benedict Haider MD [facility] [address]. [place] [address] PCP - General Family Medicine 03/08/25 Lisa Spencer MD [address] [facility] [address] [place] [address] Hospitalist Endocrinology, Diabetes, and Metabolism 06/13/22 Jason Davenport MD [address] [place] [address] 195 [place] [address] Colon & Rectal 07/27/24 Chaya Osei, PA-C 909 [place] [address] Assigned Surgical Provider 02/14/25 documented as of this encounter
--- OUTSIDE RECORDS SUMMARY | 2025-05-16 09:30 | XMS_ITS | Encounter Summary ---
Author Organization [facility] Address [address] [facility] 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 Author MYC ECC SURG ENROLL Care Plan MyC ECC SURG ENROLL No Martha Swartz Care pathway for general surgery Care Plan Care pathway for general surgery No [facility] ECC SURG DAY 10 MED Care Plan Care pathway for general surgery No [facility] documented as of this encounter Visit Diagnoses Not on filedocumented in this encounter Additional Health Concerns Active Problems Noted Date Diagnosed Date MyC ECC SURG ENROLL 09/21/2024 Care pathway for general surgery 12/09/2024 documented as of this encounter Care Teams Head Trimmer Relationship Specialty Start Date End Date Benedict Haider MD [facility] [address], [place] [address] PCP - General Family Medicine 03/08/25 Lisa Spencer MD [address] [facility] 200 [place], [place] [address] Hospitalist Endocrinology, Diabetes, and Metabolism 06/13/22 Jason Davenport MD 420 [facility] 195 [place], [place] [address] Colon & Rectal 07/27/24 Chaya Osei, MARTÍNEZC [address] [place] [address] Assigned Surgical Provider 02/14/25 documented as of this encounter
--- OUTSIDE RECORDS SUMMARY | 2025-05-16 09:30 | XMS_ITS | Encounter Summary ---
Author Organization [facility] Address [address] [place] [address]. [place] [address] Care Team Providers Care Application Systems Administrator Name Role Phone No Ref-Primary, Physician Primary Care Provider Lisa Spencer MD Unavailable [phone] Lisa Spencer MD Unavailable [phone] Chaya Osei PA-C Unavailable Jason Davenport MD Unavailable [phone] Benedict Haider MD Primary Care Provider Zuly Ford MD Unavailable Chaya Osei PA-C Unavailable [phone] Encounter Details Date Type Department Care Team (Late st Contact Info) Description 06/10/2024 [facility] [place] Medical Adv[facility] [address] [place] [address] Esperanza Pratt PAMateoC [address] [facility] [address] [place], [place] [address] Social History Tobacco Use Types Packs/Day Years [...] on file Legal Sex Female 4:22 AM SPECIAL OFFICER Gender Identity Not on file Sexual Orientation Not on file documented as of this encounter Plan of Treatment Upcoming Encounters Date Type Department Care Team (Late st Contact Info) Description 08/30/2025 1:30 PM SPECIAL OFFICER Office Visit [facility] [place] [address] [facility] [address] [place] [phone] Chaya Osei, PAMateoC [address] [place] [address] documented as of this encounter Visit Diagnoses Not on filedocumented in this encounter Care Teams Application Systems Administrator Relationship Specialty Start Date End Date No Ref-Primary, Physician PCP - General 06/13/22 08/10/24 Benedict Haider MD [facility] [address] [place] [address] PCP - General Family Medicine 03/08/25 Lisa Spencer MD [address] [facility] [address] [place], [place] [address] Hospitalist Endocrinology, Diabetes, and Metabolism 06/13/22 Lisa Spencer MD [address] [place], [place] [address] Assigned Endocrinology Provider 10/19/22 10/16/24 Chaya Osei, CHAR [address] [place] [id number] Assigned Surgical Provider 05/17/24 10/16/24 Jason Davenport MD 420 [facility] 195 [place], [place] [address] Colon & Rectal 07/27/24 Zuly Ford MD 420 [facility] 394 [place] [address] Assigned Surgical Provider 10/17/24 02/13/25 Chaya Osei, PAMateoC 9[address] [place] [address] Assigned Surgical Provider 02/14/25 documented as of this encounter
--- OUTSIDE RECORDS SUMMARY | 2025-05-16 09:30 | XMS_ITS | Encounter Summary ---
Author Organization [facility] Address [address] [place] [address]. [place] [address] Care Team Providers Care Dive Superintendent Name Role Phone Lisa Spencer MD Unavailable [phone] Jason Davenport MD Unavailable [phone] Benedict Haider MD Primary Care Provider Chaya Osei-C Unavailable [phone] Encounter Details Date Type Department Care Team (Late st Contact Info) Description 04/18/2025 Results Follow-Up [address] [address] Chaya Osei, PA-C [address] [place] [address] Subj: Message about your results Social History Tobacco Use Types Packs/Day Years [...] on file Legal Sex Female 4:22 AM VISUAL JOURNALIST Gender Identity Not on file Sexual Orientation Not on file documented as of this encounter Plan of Treatment Upcoming Encounters Date Type Department Care Team (Late st Contact Info) Description 08/30/2025 1:30 PM VISUAL JOURNALIST Office Visit [facility] [place] [address] [place] [address] Chaya Osei, PAMateoC [address] [place] [address] documented as of this encounter Goals Goal Patient Goal Type Associated Problems Recent Progress Patient-Stated? Author MYC ECC SURG ENROLL Care Plan MyC ECC SURG ENROLL No SwartzMartha Care pathway for general surgery Care Plan Care pathway for general surgery No GhadaJodi lazo MYC ECC SURG DAY 10 MED Care Plan Care pathway for general surgery No Jodi Blas documented as of this encounter Visit Diagnoses Not on filedocumented in this encounter Additional Health Concerns Active Problems Noted Date Diagnosed Date MyC ECC SURG ENROLL 09/21/2024 Care pathway for general surgery 12/09/2024 documented as of this encounter Care Teams Dive Superintendent Relationship Specialty Start Date End Date Benedict Haider MD [facility] [address] [place] [address] PCP - General Family Medicine 03/08/25 Lisa Spencer MD [address] [facility] [address] [place] [address] Hospitalist Endocrinology, Diabetes, and Metabolism 06/13/22 Jason Davenport MD 420 [facility] 195 [place], [place] [address] Colon & Rectal 07/27/24 Chaya Osei, PAMateoC [address] [place], [place] [address] Assigned Surgical Provider 02/14/25 documented as of this encounter
--- OUTSIDE RECORDS SUMMARY | 2025-05-16 09:30 | XMS_ITS | Encounter Summary ---
Author Organization [facility] Address [address] [place] [address]. [place] [address] Care Team Providers Care Correspondence Section Supervisor Name Role Phone Lisa Spencer MD Unavailable [phone] Jason Davenport MD Unavailable Benedict Haider MD Primary Care Provider Zuly Ford MD Unavailable [phone] Chaya Osei PA-C Unavailable [phone] Encounter Details Date Type Department Care Team (Late st Contact Info) Description 12/08/2024 [facility] Medical Advice [facility] [address] [place] [address] Carmelina Shah, RN Social History [...] on file Legal Sex Female 4:22 AM NON DESTRUCTIVE TESTING TECHNICIAN Gender Identity Not on file Sexual Orientation Not on file documented as of this encounter Plan of Treatment Upcoming Encounters Date Type Department Care Team (Late st Contact Info) Description 08/30/2025 1:30 PM NON DESTRUCTIVE TESTING TECHNICIAN Office Visit [facility] [place] [address] [place] [address] Chaya Osei PA-C 9 [place], [place] [address] documented as of this encounter Goals Goal [...] documented as of this encounter Care Teams Correspondence Section Supervisor Relationship Specialty Start Date End Date Benedict Haider MD [facility] [address], [place] [address] PCP - General Family Medicine 03/08/25 Lisa Spencer MD [address] [facility] 200 [place] [address] Hospitalist Endocrinology, Diabetes, and Metabolism 06/13/22 Jason Davenport MD 420 [facility] 195 [place], [place] [address] Colon & Rectal 07/27/24 Zuly Ford MD 420 [facility] 394 [place], [place] [address] Assigned Surgical Provider 10/17/24 02/13/25 Chaya Osei PA-C [address] [place] [address] Assigned Surgical Provider 02/14/25 documented as of this encounter
--- OUTSIDE RECORDS SUMMARY | 2025-05-16 09:30 | XMS_ITS | Clinical Summary ---
Author Organization [facility] Address [address] [place] [address]. [place] [address] Care Team Providers Care Stack Supervisor Name Role Phone Lisa Spencer MD Unavailable [phone] Jason Davenport MD Unavailable [phone] Benedict Haider MD Primary Care Provider Chaya Osei PA-C Unavailable Allergies Active Allergy Reactions Criticality Noted Date Comments Povidone Iodine Hives Medium 03/08/2025 Noted after sacrocolpopexy/rectopex y procedure on perineum and bilateral legs. Bupropion 12/19/2004 PN: LW Reaction: SHORTNESS OF BREATH Ramelteon Other (See Comments) High 04/11/2023 Tetanus Toxoid Nausea and Vomiting,Fatigue 08/25/2011 Medications levothyroxine (SYNTHROID/LEVO THROID) 88 MCG tablet Take 88 mcg by mouth every morning (before breakfast). 3 Active eszopiclone (LUNESTA) 3 MG tablet Take 3 mg by mouth at bedtime. 4 Active traMADol (ULTRAM) 50 MG tablet Take 50 mg by mouth every 8 hours as needed for pain. Active SENNA-docusate sodium (SENNA S) 8.6-50 MG tabletIndicatio ns:Pelvic pain in female Take 1 tablet by mouth at bedtime. 30 tablet 5 Active multivitamin w/minerals (MULTI-VITAMIN) tablet Take 1 tablet by mouth daily. Active fish oil-omega-3 fatty acids 500 MG capsule Take 1 capsule by mouth daily. Active magnesium 250 MG tablet Take 1 tablet by mouth daily. Active pyridOXINE (VITAMIN B6) 100 MG TABS Take 25 mg by mouth daily. Active coenzyme Q-10 capsule Take 1 capsule by mouth daily. Active psyllium (METAMUCIL/KONS YL) capsule Take 2 capsules by mouth daily. Active vitamin D3 (CHOLECALCIFERO L) 250 mcg (84696 units) capsule Take 250 mcg by mouth daily. Active Magnesium Citrate 125 MG CAPS Take 375 mg by mouth every evening. Active MAGNESIUM COMPLEX HIGH POTENCY PO Take 1 tablet by mouth every evening. Active vitamin B-Complex Take 1 tablet by mouth daily. Active acetaminophen (TYLENOL) 500 MG tabletIndicatio ns:Acute post-operative pain Take 2 tablets (1,000 mg) by mouth 4 times daily. 75 tablet 5 Active ibuprofen (ADVIL/MOTRIN) 800 MG tabletIndicatio ns:Acute post-operative pain Take 1 tablet (800 mg) by mouth 3 times daily. 21 tablet 5 Active methocarbamol (ROBAXIN) 500 MG tabletIndicatio ns:Acute post-operative pain Take 1 tablet (500 mg) by mouth 3 times daily as needed for muscle spasms. 20 tablet 5 Active traMADol (ULTRAM) 50 MG tabletIndicatio ns:Acute post-operative pain Take 1-2 tablets (50-100 mg) by mouth every 6 hours as needed for moderate to severe pain. 20 tablet 5 Active polyethylene glycol (MIRALAX) 17 GM/Dose powderIndicatio ns:Intussuscept ion of rectum (H) Take 17 g by mouth daily. 510 g 1 5 05/08/20 25 psyllium (METAMUCIL/KONS YL) PacketIndicatio ns:Intussuscept ion of rectum (H) Take 1 packet by mouth 2 times daily. 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 [address] 4th [place] [phone] Jason Davenport MD Follow-up examination after colorectal surgery (Primary Dx) 04/18/2025 Travel 04/18/2025 Results Follow-Up [address] [phone] Chaya Osei PA-C Subj: Message about your results 04/14/2025 1:00 PM CDT Office Visit [facility] [place] [phone] [facility] [address] [place] [phone] Chaya Osei PA-C Encounter for postoperative care (Primary Dx); Mixed incontinence 04/14/2025 Travel 03/28/2025 11:00 AM CDT Office Visit [facility] [place] [address] [facility] [address] [place] [phone] Paige Bird PA-C Follow-up examination after colorectal surgery (Primary Dx); History of rectopexy 03/28/2025 Travel 03/19/2025 Telephone [facility] - Surgical Specialties Service Line [address] [place] [phone] Kendrick Hilliard MD 03/08/2025 1:38 PM CDT Anesthesia Event [facility] PeriOp Services [address] [place] [phone] Tom Monteiro MD Valek, Katherine Balcom, PA-C 03/08/2025 12:55 PM CDT - 03/08/2025 7:05 PM CDT Surgery [facility] [address] [place] [phone] Zuly Ford MD ROBOT-ASSISTED SACROCOLPOPEXY, CYSTOSCOPY 03/08/2025 10:42 AM CDT - 03/09/2025 2:12 PM CDT Hospital Encounter [facility] 7C Med Surg [address] [place] [phone] Zuly Ford MD Gaertner, Wolfgang Bernd, MD Intussusception of rectum (H) (Primary Dx); Acute post-operative pain Discharge Disposition: Home or Self Care 03/08/2025 Travel 03/07/[address] [facility] [address] [phone] Jason Davenport MD Call Back (Surgery tomorrow and vomited afternoon antibiotics) 02/24/[address] [facility] [address] [phone] Carmelina Shah RN 02/24/[address] [facility] [address] [phone] Carmelina Shah RN 02/23/2025 Results Follow-Up [facility] Surgical Specialties Service Line [address] [place] [phone] Zuly Ford MD Subj: Message about your results 02/22/2025 1:00 PM CDT Lab [facility] [address] [place] [phone] Obstructive defecation (H); Uterovaginal prolapse; Abnormal defecation; Suspected UTI 02/22/2025 11:15 AM CDT Virtual Visit [facility] Preoperative Assessment [address] [phone] Carly Zapata PA-C Pre-operative examination (Primary Dx); Obstructive defecation (H) 02/22/2025 Travel 02/22/[address] [facility] Preoperative Assessment [address] [phone] Melia Russell RN 02/22/[address] [facility] Preoperative Assessment [address] [phone] Felicia Richard, HILARY SEROLOGY TECHNICIAN Previsit from Last 3 Months Immunizations Immunization Administration Dates Next Due HepB 04/21/2006,12/04/2005,10/08/2005 Hepatitis B, Adult (Energix- B/Recombivax HB) 04/21/2006,12/04/2005,10/08/2005 Influenza (H1N1) 09/20/2009 Influenza (IIV3) PF 09/20/2009,06/20/2008,2002 Influenza (prior to 2023) 09/20/2009 TD,PF 7+ (Tenivac) 10/21/2002 TDAP (Adacel,Boostrix) 06/02/2012 Td (Adult), Adsorbed 10/21/2002 Family History Medical History Relation Comments Anesthesia Reaction Son irritable Deep Vein Thrombosis (DVT) No family hx of Relation Status Comments Son Alive Social History Tobacco Use Types Packs/Day Years Used Date Smoking Tobacco: Former Cigarettes 0.3 7 0 09/25/1999 - 09/25/2006 Passive Smoke Exposure: Past Smokeless Tobacco: Never Tobacco Cessation:Counseling Given: No Comments:Quit 2-07 Alcohol Use Standard Drinks/Week Comments [...] in an abandoned building, in an overnight care home, or couch-surfing.) No 03/08/2025 Are you [...] on file Legal Sex 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 Gender Identity Not on file Sexual Orientation Not on file Last Filed Vital Signs Vital Sign Reading Time Taken Comments Blood Pressure 108/74 04/18/2025 1:12 PM CDT Pulse 70 04/18/2025 1:12 PM CDT Temperature 36.7 C (98 F) 03/28/2025 11:00 AM CDT Respiratory Rate 13 03/09/2025 5:00 AM CDT Oxygen Saturation 98% 04/18/2025 1:12 PM CDT Inhaled Oxygen Concentration - - Weight 76 kg (167 lb 9.6 oz) 04/18/2025 1:12 PM CDT Height 162.6 cm (5' 4) 04/18/2025 1:12 PM CDT Body Mass Index 28.77 04/18/2025 1:12 PM CDT Plan of Treatment Upcoming Encounters Date Type Department Care Team (Late st Contact Info) Description 08/30/2025 1:30 PM MARINE FISHERIES TECHNICIAN Office Visit [facility] [place] [address] [facility] [address] [place] [phone] Chaya Osei PA-C [address] [place], [place] [phone] Health Maintenance Due Date Last Done Comments ADVANCE CARE PLANNING 1981 ANNUAL REVIEW OF HM ORDERS 1981 MAMMO SCREENING 1981 YEARLY PREVENTIVE VISIT 1984 HIV SCREENING 1996 HEPATITIS C SCREENING 10/29/1999 DTAP/TDAP/TD VACCINE (3 - Td or Tdap) 06/02/2022 06/02/2012, 10/21/2002, 10/21/2002 TSH W/FREE T4 REFLEX 03/11/2024 03/11/2023, 03/11/2023, 10/22/2022, Additional history exists COVID-19 VACCINE ( season) 2025 INFLUENZA VACCINE (#1) 2025 0, 09/20/2009, 09/20/2009, Additional history exists LIPID 06/03/2027 06/03/2022 DIABETES SCREENING 03/08/2028 03/08/2025, 0 02/22/2025, 12/06/2024, Additional history exists HPV TEST 10/26/2029 10/26/2024 PAP 10/26/2029 10/26/2024, 03/0 11/2024, 10/25/2019 ZOSTER VACCINE (1 of 2) 10/29/2031 HEPATITIS B VACCINE Completed 04/21/2006, 04/21/2006, 12/04/2005, Additional history exists PHQ-2 (once per calendar year) Completed 02/22/2025, 10/06/2024, 04/16/2024, Additional history exists HPV VACCINE (No Doses Required) Completed MENINGITIS VACCINE Aged Out No longer eligible based on patient's age to complete this topic PNEUMOCOCCAL VACCINE: PEDIATRICS (0 to 5 YEARS) AND AT-RISK PATIENTS (6 to 49 YEARS) Aged Out No longer eligible based on patient's age to complete this topic Goals Goal Patient Goal Type Associated Problems Recent Progress Patient-Stated? Author MYC ECC SURG ENROLL Care Plan MyC ECC SURG ENROLL No Martha Swartz Care pathway for general surgery Care Plan Care pathway for general surgery No Jodi Blas MYC ECC SURG DAY 10 MED Care Plan Care pathway for general surgery No Jodi Blas Medical Devices Implanted Type Area Assistant Gm Of Content & Delivery Device Identifier Shelf Expiration Date Model / Serial / Lot Gynemesh Ps Implanted:Qty: 1 on 03/08/2025 by Zuly Ford MD at [facility] Mesh N/A: Abdomen ETHICON 12/22/2028 [id number] / / [id number] Procedures Procedure Name Priority Date/Time Associated Diagnosis Comments URINE CULTURE Routine 04/14/2025 1:22 PM CDT Encounter for postoperative care Mixed incontinence URINALYSIS MACROSCOPIC Routine 04/14/2025 1:15 PM CDT Mixed incontinence DC MEASURE POST-VOID RESIDUAL URINE/BLADDER CAPACITY, US NON-IMAGING Routine 04/14/2025 Mixed incontinence POTASSIUM Routine 03/09/2025 8:28 AM CDT PHOSPHORUS Routine 03/09/2025 8:28 AM CDT MAGNESIUM Routine 03/09/2025 8:28 AM CDT HEMOGLOBIN Routine 03/09/2025 5:28 AM CDT ANE AIRWAY ETT PERFORMABLE Routine 03/08/2025 1:47 PM CDT FLEX SIGMOIDOSCOPY W/WO ELFEGO SPEC BY BRUSH/WASH 03/08/2025 1:36 PM CDT Obstructive defecation (H) Uterovaginal prolapse Abnormal defecation Special Needs PAC 02/22/25 LAP, SURG PROCTOPEXY 03/08/2025 1:36 PM CDT Obstructive defecation (H) Uterovaginal prolapse Abnormal defecation Special Needs PAC 02/22/25 SACROCOLPOPEXY, ROBOT-ASSISTED, WITH CYSTOSCOPY 03/08/2025 1:36 PM CDT Obstructive defecation (H) Uterovaginal prolapse Abnormal defecation Special Needs PAC 02/22/25 GLUCOSE BY METER Routine 03/08/2025 11:19 AM CDT URINE CULTURE Routine 02/22/2025 1:21 PM CDT Suspected UTI URINE MICROSCOPIC EXAM Routine 02/22/2025 1:21 PM CDT Suspected UTI ROUTINE UA WITH MICROSCOPIC Routine 02/22/2025 1:21 PM CDT Suspected UTI CBC WITH PLATELETS & DIFFERENTIAL Routine 02/22/2025 1:01 PM CDT Obstructive defecation (H) Uterovaginal prolapse Abnormal defecation CBC WITH PLATELETS AND DIFFERENTIAL Routine 02/22/2025 1:01 PM CDT Obstructive defecation (H) Uterovaginal prolapse Abnormal defecation PREALBUMIN Routine 02/22/2025 1:01 PM CDT Obstructive defecation (H) Uterovaginal prolapse Abnormal defecation COMPREHENSIVE METABOLIC PANEL Routine 02/22/2025 1:01 PM CDT Obstructive defecation (H) Uterovaginal prolapse Abnormal defecation ABSTRACT HPV (HIM EXTERNAL RESULT) Routine 10/26/2024 11:31 AM MARINE FISHERIES TECHNICIAN T4 FREE Routine 03/11/2023 8:46 AM CDT Other specified hypothyroidism LIPID PANEL (EXTERNAL RESULT) Routine 06/03/2022 8:10 AM CDT from Last 3 Months or Most Recently Relevant to Health Maintenance Results * Urine Culture (04/14/2025 1:22 PM CDT) Only the most recent of2 resultswithin the time period is included. Culture <10,000 CFU/mL Urogenital mann 04/16/2025 4:52 AM CDT [facility] Urine MID-STREAM URINE SPECIMEN / Unknown Non-blood Collection / Unknown 04/14/2025 1:22 PM CDT 04/14/2025 1:22 PM CDT us Chaya Osei PA-C LAB - MICRO GENERAL ORDE PIEDAD Final Result [facility] Inf. Diseases Diag. Lab [address] [facility], [address] [place], [place] [phone] * (ABNORMAL) UA without Microscopic [[id number]] (04/14/2025 1:15 PM CDT) Color Urine Yellow Colorless, Straw, Light Yellow, Yellow 04/14/2025 1:49 PM CDT [facility] [place] Appearance Urine Clear Clear 04/14/20 25 1:49 PM CDT [facility] [place] Glucose Urine Negative Negative mg/dL 04/14/2025 1:49 PM CDT [facility] [place] Bilirubin Urine Negative Negative 1:49 PM CDT [facility] [place] Ketones Urine Negative Negative mg/dL 04/14/2025 1:49 PM CDT [facility] [place] Specific [place] Urine <=1.005 1.003 - 1.035 04/14/2025 1:49 [...] inal Result [facility] [place] [address], [address] [place], [place] [address] [phone] * MEASURE POST-VOID RESIDUAL URINE/BLADDER CAPACITY, US NON-IMAGING ([id number]) (04/14/2025) Result 15 us Chaya Osei PA-C PROCEDURES Final Re sult * Potassium (03/09/2025 8:28 AM CDT) Potassium 4.0 3.4 - 5.3 mmol/L 03/09/2025 9:09 AM CDT [facility] Blood STRUCTURE OF RIGHT HAND / Unknown Venipuncture / Unknown 03/09/2025 8:28 AM CDT 03/09/2025 8:37 AM CDT us Jason Davenport MD LAB - BLOOD ORDERABLE S Final Result [facility] [place] Core Lab [address] [facility], [address] [place] [phone], [facility] * Phosphorus (03/09/2025 8:28 AM CDT) Phosphorus 3.1 2.5 - 4.5 mg/dL 03/09/2025 9:09 AM CDT [facility] Blood STRUCTURE OF RIGHT HAND / Unknown Venipuncture / Unknown 03/09/2025 8:28 AM CDT 03/09/2025 8:37 AM CDT us Jason Davenport MD LAB - BLOOD ORDERABLE S Final Result [facility] [place] Core Lab [address] [facility], [address] * (ABNORMAL) Magnesium (03/09/2025 8:28 AM CDT) Magnesium 1.6(L) 1.7 - 2.3 mg/dL 03/09/2025 9:54 AM CDT [facility] Blood STRUCTURE OF RIGHT HAND / Unknown Venipuncture / Unknown 03/09/2025 8:28 AM CDT 03/09/2025 8:37 AM CDT us Jason Davenport MD LAB - BLOOD ORDERABLE S Final Result Performing Organization Address City/[facility]/ZIP Co de Phone Number [facility] [place] Core Lab [address] [facility], [address] * Hemoglobin (03/09/2025 5:28 AM CDT) Hemoglobin 12.4 11.7 - 15.7 g/dL 03/09/2025 5:49 AM CDT [facility] MCV 87 78 - 100 fL 03/09/2025 5:49 AM CDT [facility] Blood STRUCTURE OF LEFT HAND / Unknown Venipuncture / Unknown 03/09/2025 5:28 AM CDT 03/09/2025 5:42 AM CDT us Jason Davenport MD LAB - BLOOD ORDERABLE S Final Result [facility] [place] Core Lab [address] [facility], [address] [phone] * ANE AIRWAY ETT PERFORMABLE (03/08/2025 1:47 PM CDT) Narrative Jada Molina APRN COTTON EXPERT - 03/08/2025 1:47 PM CDT Jada Molina APRN COTTON EXPERT 03/08/2025 2:08 PM Airway Patient location during procedure: OR Procedure Start/Stop Times: 03/08/2025 1:47 PM Staff - Anesthesiologist: Tom Monteiro MD COTTON EXPERT: Jada Molina APRN CRNA Other Anesthesia Staff: Lindy Nath Performed By: SRNAIndications and Patient Condition Indications for airway management: ruby-procedural Induction type:intravenous Mask difficulty assessment: 2 - vent by mask + OA or adjuvant +/- NMBA Final Airway Details Final airway type: endotracheal airway Successful airway: ETT - single Endotracheal Airway Details ETT size (mm): 7.0 Cuffed: yes Cuff volume (mL): 9 Successful intubation technique: direct laryngoscopy DL Blade Type: Jung 2 Grade View of Cords: 1 Adjucts: stylet Position: Right Measured from: lips Secured at (cm): 22 Bite block used: None Post intubation assessment Placement verified by: capnometry, equal breath sounds and chest rise Number of attempts at approach: 1 Number of other approaches attempted: 0 Secured with: tape Ease of procedure: easy Dentition: Intact Medication(s) Administered Medication Administration Time: 03/08/2025 1:47 PM us Tom Monteiro MD DC ANESTHESIA Final Result * Glucose by meter (03/08/2025 11:19 AM CDT) GLUCOSE BY METER POCT 92 70 - 99 mg/dL 03/15/2025 11:58 AM CDT [facility] POC Comment:Dr/RN Notified Blood, Capillary BLOOD SPECIMEN / Unknown 03/08/2025 11:19 AM CDT 03/15/2025 11:58 AM CDT us Jason Davenport MD LAB - BEAKER POCT Fin al Result [facility] POC [facility] Core Lab [address] [facility], [address] [place] [address], [facility] * (ABNORMAL) Routine UA with microscopic - No culture (02/22/2025 1:21 PM CDT) Color Urine Yellow Colorless, Straw, Light Yellow, Yellow 02/22/2025 1:23 PM CDT [facility] LAB[facility] Appearance Urine Clear Clear 02/23/20 1:23 PM CDT CR [facility] Glucose Urine Negative Negative mg/dL 02/22/2025 1:23 PM CDT [facility] Bilirubin Urine Negative Negative 1:23 PM CDT [facility] Ketones Urine Negative Negative mg/dL 02/22/2025 1:23 PM CDT [facility] Specific [place] Urine 1.015 1.003 - 1.035 02/22/2025 1:23 PM CDT [facility] Blood Urine Negative Negative 02/22/2025 1:23 PM CDT [facility] pH Urine 7.5(H) 5.0 - 7.0 02/22/2025 1:23 PM CDT [facility] Protein Albumin Urine Negative Negative mg/dL 02/22/2025 1:23 PM CDT [facility] Urobilinogen Urine 0.2 0.2, 1.0 E.U./dL 02/22/2025 1:23 PM CDT [facility] Nitrite Urine Negative Negative 02/22/2025 1:23 PM CDT [facility] Leukocyte Esterase Urine Negative Negative 02/22/2025 1:23 PM CDT [facility] Urine URINE SPECIMEN OBTAINED BY CLEAN CATCH PROCEDURE / Unknown Non-blood Collection / Unknown 02/22/2025 1:21 PM CDT 02/22/2025 1:21 PM CDT us Zuly Ford MD LAB - URINE ORDERABLES F inal Result CR [facility]AT[facility] [id number] [place] [address] Lab (no room number, 1st floor of clinic) [place] [address], [facility] * (ABNORMAL) Urine Microscopic Exam (02/22/2025 1:21 PM CDT) Bacteria Urine Few(A) None Seen /HPF CORNELIA 02/22/2025 1:27 PM CDT [facility] RBC Urine None Seen 0-2 /HPF /HPF CORNELIA 02/22/2025 1:27 PM CDT CR [facility] WBC Urine 0-5 0-5 /HPF /HPF CORNELIA 02/22/2025 1:27 PM CDT CR [facility] Squamous Epithelials Urine Few(A) None Seen /LPF CORNELIA 02/22/2025 1:27 PM CDT CR LAB[facility] Urine URINE SPECIMEN OBTAINED BY CLEAN CATCH PROCEDURE / Unknown Non-blood Collection / Unknown 02/22/2025 1:21 PM CDT 02/22/2025 1:21 PM CDT us Zuly Ford MD LAB - URINE ORDERABLES F inal Result CR LABORATORY [facility] [id number] [place] [address] (no room number, 1st floor of clinic) [place] [address], [facility] * CBC with platelets and differential (02/22/2025 1:01 PM CDT) WBC Count 5.5 4.0 - 11.0 10e3/uL 02/22/2025 1:04 PM CDT CR LAB[facility] RBC Count 4.75 3.80 - 5.20 10e6/uL 02/22/2025 1:04 PM CDT CR [facility] Hemoglobin 13.9 11.7 - 15.7 g/dL 02/22/2025 1:04 PM CDT CR [facility] Hematocrit 41.8 35.0 - 47.0 % 02/22/2025 1:04 PM CDT CR [facility] MCV 88 78 - 100 fL 02/22/2025 1:04 PM CDT CR [facility] MCH 29.3 26.5 - 33.0 pg 02/22/2025 1:04 PM CDT CR [facility] MCHC 33.3 31.5 - 36.5 g/dL 02/22/2025 1:04 PM CDT CR [facility] RDW 11.9 10.0 - 15.0 % 02/22/2025 1:04 PM CDT CR [facility] Platelet Count 298 150 - 450 10e3/uL 02/22/2025 1:04 PM CDT [facility] % Neutrophils 59 % 02/22/2025 1:04 PM CDT [facility] % Lymphocytes 33 % 02/22/2025 1:04 PM CDT [facility] % Monocytes 6 % 02/22/2025 1:04 PM CDT [facility] % Eosinophils 2 % 02/22/2025 1:04 PM CDT [facility] % Basophils 1 % 02/22/2025 1:04 PM CDT CR [facility] % Immature Granulocytes 0 % 02/22/2025 1:04 PM CDT CR [facility] Absolute Neutrophils 3.2 1.6 - 8.3 10e3/uL 02/22/2025 1:04 PM CDT CR [facility] Absolute Lymphocytes 1.8 0.8 - 5.3 10e3/uL 02/22/2025 1:04 PM CDT CR [facility] Absolute Monocytes 0.3 0.0 - 1.3 10e3/uL 02/22/2025 1:04 PM CDT CR [facility] Absolute Eosinophils 0.1 0.0 - 0.7 10e3/uL 02/22/2025 1:04 PM CDT CR LAB[facility] Absolute Basophils 0.1 0.0 - 0.2 10e3/uL 02/22/2025 1:04 PM CDT CR [facility] Absolute Immature Granulocytes 0.0 <=0.4 10e3/uL 02/22/2025 1:04 PM CDT CR [facility] Blood BLOOD SPECIMEN / Unknown Venipuncture / Unknown 02/22/2025 1:01 PM CDT 02/22/2025 1:02 PM CDT [facility] Chas Davenport MD LAB - BLOOD ORDERABLE S Final Result CR [facility]ATORY [facility] [address] [facility] (no room number, 1st floor of clinic) [place] [address], [facility] * Prealbumin (02/22/2025 1:01 PM CDT) Prealbumin 26.2 20.0 - 40.0 mg/dL 02/23/2025 3:28 AM CDT [facility] Blood BLOOD SPECIMEN / Unknown Venipuncture / Unknown 02/22/2025 1:01 PM CDT 02/22/2025 1:02 PM CDT Jason Davenport MD LAB - BLOOD ORDERABLE S Final Result [facility] [place] Core Lab [address] [facility], [address] [phone] * Comprehensive metabolic panel (02/22/2025 1:01 PM CDT) Sodium 140 135 - 145 mmol/L 02/23/2025 3:31 AM CDT [facility] Potassium 4.6 3.4 - 5.3 mmol/L 02/23/2025 3:31 AM CDT [facility] Carbon Dioxide (CO2) 26 22 - 29 mmol/L 02/23/2025 3:31 AM CDT [facility] Anion Gap 11 7 - 15 mmol/L 02/23/2025 3:31 AM CDT [facility] Urea Nitrogen 7.7 6.0 - 20.0 mg/dL 02/23/2025 3:31 AM CDT [facility] Creatinine 0.74 0.51 - 0.95 mg/dL 02/23/2025 3:31 AM CDT [facility] GFR Estimate >90 >60 mL/min/1.7 3m2 02/23/2025 3:31 AM CDT [facility] Comment:eGFR calculated us2020 CKD-EPI equation. Calcium 9.7 8.8 - 10.4 mg/dL 02/23/2025 3:31 AM CDT [facility] Chloride 103 98 - 107 mmol/L 02/23/2025 3:31 AM CDT [facility] Glucose 90 70 - 99 mg/dL 02/23/2025 3:31 AM CDT [facility] Alkaline Phosphatase 74 40 - 150 U/L 02/23/2025 3:31 AM CDT [facility] AST 22 0 - 45 U/L 02/23/2025 3:31 AM CDT [facility] ALT 22 0 - 50 U/L 02/23/2025 3:31 AM CDT [facility] Protein Total 7.6 6.4 - 8.3 g/dL 02/23/2025 3:31 AM CDT [facility] Albumin 4.7 3.5 - 5.2 g/dL 02/23/2025 3:31 AM CDT [facility] Bilirubin Total 0.5 <=1.2 mg/dL 02/23/2025 3:31 AM CDT [facility] Blood BLOOD SPECIMEN / Unknown Venipuncture / Unknown 02/22/2025 1:01 PM CDT 02/22/2025 1:02 PM CDT us Jason Davenport MD LAB - BLOOD ORDERABLE S Final Result U [facility] [place] Core Lab [address] [facility], [address] [place] [address] * Abstract HPV (HIM External Result) (10/26/2024 11:31 AM MARINE FISHERIES TECHNICIAN) HPV Abstract See Scanned Document [facility] 10/26/2024 11:3 1 AM MARINE FISHERIES TECHNICIAN Narrative [facility] - 10/26/2024 11:31 AM MARINE FISHERIES TECHNICIAN [facility] - External Lab Results us Provider Outside LAB - HIM EXTERNAL RESULT Final Result [facility] [address] [place] [address], [facility] [phone] * T4, free (03/11/2023 8:46 AM CDT) Free T4 1.22 0.90 - 1.70 ng/dL 03/11/2023 3:44 PM CDT [facility] Blood BLOOD SPECIMEN / Unknown Venipuncture / Unknown 03/11/2023 8:46 AM CDT 03/11/2023 8:46 AM CDT us Lisa Spencer MD LAB - BLOOD ORDERABLES Fi nal Result [facility] [place] Core Lab [address] [facility] [address], Room 3[address] [place] [address], [facility] [phone] * (ABNORMAL) Lipid Panel (External Result) (06/03/2022 8:10 AM CDT) Cholesterol (External) 244(A) 90 - 199 mg/dL [facility] Triglycerides (External) 176(A) 40 - 149 mg/dL [facility] HDL Cholesterol (External) 80 >=50 mg/dL [facility] LDL Cholesterol Calculated (External) 129(A) <100 mg/dL [facility] Blood 06/03/2022 8:10 AM CDT Narrative [facility] - 06/03/2022 8:10 AM CDT [facility] LAB RESULT us Provider Outside LAB - HIM EXTERNAL RESULT Final Result Performing Organization Address City/State/[facility] de Phone Number [facility] [address] [place] [address], [facility] [phone] from Last 3 Months or Most Recently Relevant to Health Maintenance Additional Health Concerns Active Problems Noted Date Diagnosed Date MyC ECC SURG ENROLL 09/21/2024 Care pathway for general surgery 12/09/2024 Insurance [facility] [address] [place] [id number] [facility] Advance Directives For more information, please contact: [phone] * Full Code (Latest Code Status on File) Date Activated Date Inactivated Comments 03/08/2025 8:11 PM 03/09/2025 4:23 PM All basic an d advanced life-sustaining interventions are performed as appropriate Question Answer Comments Code status determined by: Discussion with kathye nt/ legal decision maker * Full Code Date Activated Date Inactivated Comments 12/21/2024 11:51 AM 12/21/2024 6:26 PM All basic a nd advanced life-sustaining interventions are performed as appropriate Question Answer Comments Code status determined by: Discussion with alysha nt/ legal decision maker Care Teams Stack Supervisor Relationship Specialty Start Date End Date Benedict Haider MD [facility] [address] [place] [address] PCP - General Family Medicine 03/08/25 Lisa Spencer MD [address] [facility] [address] [place] [address] Hospitalist Endocrinology, Diabetes, and Metabolism 06/13/22 Jason Davenport MD [address] [facility] [address] [place] [address] Colon & Rectal 07/27/24 Chaya Osei PA-C [address] [place] [address] Assigned Surgical Provider 02/14/25
--- OUTSIDE RECORDS SUMMARY | 2025-05-16 09:31 | XMS_ITS | Encounter Summary ---
Author Organization [place] Address [address] [place] [address]. 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 Gender Identity Not on file Sexual Orientation Not on file documented as of this encounter Plan of Treatment Upcoming Encounters Date Type Department Care Team (Late st Contact Info) Description 08/30/2025 1:30 PM SOFTWARE VALIDATION ENGINEER Office Visit [facility] [address] [place] [address] Chaya Osei, PAMateoC [address] [place] [id number] documented as of this encounter Goals Goal [...] documented as of this encounter Care Teams Sanforizer Relationship Specialty Start Date End Date Benedict Haider MD [facility] [address] [place] [address] PCP - General Family Medicine 03/08/25 Lisa Spencer MD [address] [facility] [address] [place] [address] Hospitalist Endocrinology, Diabetes, and Metabolism 06/13/22 Jason Davenport MD [address] [place] [address] [address] [place] [address] Colon & Rectal 07/27/24 Chaya Osei, PA-C [address] [place] [address] Assigned Surgical Provider 02/14/25 documented as of this encounter
[2025-05-16 09:32] VITALS: BP 116/76; PULSE 78; RESP 16; TEMP 36.6; O2SAT 97; BMI 27.1
--- NOTE | 2025-05-16 11:35 | CRLHL7_ITS ---
For Patients: As a result of the Century Cures Act, medical imaging exams and procedure reports are released immediately into your electronic medical record. You may view this report before your referring provider. If you have questions, please contact your health care provider. INDICATION: Dizziness x2 weeks, getting worse TECHNIQUE: Noncontrast axial CT of the head. Coronal and sagittal reformats. Bone and soft tissue algorithms. COMPARISON: MRI brain 08/02/2022 FINDINGS: The ventricles and cortical sulci appear age-appropriate. No midline shift or mass effect. No acute intracranial hemorrhage or extra-axial fluid collection. Lema-white matter differentiation is grossly maintained. White matter attenuation is within normal limits. Intracranial vessels are unremarkable for technique. Midline structures are unremarkable. The calvarium appears grossly intact. Leftward nasal septal deviation with bone spur encroaching upon the left nasal wall and deforming the left inferior turbinate. Clear paranasal sinuses and mastoid air cells.. Unremarkable orbits. IMPRESSION: 1. No CT evidence of acute intracranial abnormality. Please note that all CT scans at this facility use dose modulation, iterative reconstruction, and/or weight-based dosing when appropriate to reduce radiation dose to as low as reasonably achievable. Dictated by Annalisa Pagan MD @ 05/16/2025 12:27:34 PM (Electronically Signed)
--- NOTE | 2025-05-16 11:37 | ED.GENADULT ---
HPI - General Adult General Date Seen: 05/16/25 Chief complaint: Dizziness/Vertigo Stated complaint: dizziness, light headed Time Seen by Provider: 05/16/25 11:18 History of Present Illness HPI narrative: Patient is a 44-year-old woman who called the clinic today to make an appointment to be seen for some mild balance problems she has been having for 2-3 weeks. She says she does have a history of vertigo, was previously diagnosed with Meniere's although she is not certain that was the correct diagnosis. She does not feel like she has vertigo, she is not having any significant spinning but she just feels a little off balance. If she leans forward or turns her head too quickly she feels momentarily off balance, and she feels like she is having to just pay attention to her walking more than she normally would although she does not feel that she is having difficulty walking per se. She does get headaches fairly commonly, these have been increased over the past couple of weeks but she thinks that is probably because she had surgery in November,, and since then she has fallen off doing the PT that she typically does for a prior neck injury. She has not had nausea or vomiting. No recent trauma. No other neurologic changes. Related Data Home Medications ?Medication ?Instructions ?Recorded ?Confirmed multivitamin (Daily Multi-Vitamin 1 tab PO QDAY 04/18/22 01/31/25 tablet) Previous Rx's ?Medication ?Instructions ?Recorded levothyroxine 88 mcg tablet 88 mcg PO QDAY #90 tabs 02/18/25 eszopiclone 3 mg tablet (Lunesta) 3 mg PO QHS #30 tabs 05/02/25 Allergies Allergy/AdvReac Type Severity Reaction Status Date / Time ramelteon (From Rozerem) Allergy Severe profuse Verified 01/31/25 16:08 sweating, tachycardia tetanus and diphtheria Allergy Severe Weakness, Verified 01/31/25 16:08 toxoids (From TDVAX) sore throat, headache, bodyaches, diarrhea, cramps oxycodone Allergy Intermediate Abdominal Verified 01/31/25 16:08 Pain Review of Systems Status of ROS: Reports: 10 or more systems reviewed and unremarkable except as noted in History and below [facility] Medical History 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 - Myalgic encephalomyelitis/chronic fatigue syndrome (ICD-10) ?U09.9 - Post covid-19 condition, unspecified (ICD-10) Hypothyroidism ?E03.9 - Hypothyroidism, unspecified (ICD-10) Vitamin D deficiency (09/25/11) ?E55.9 - Vitamin D deficiency, unspecified (ICD-10) Tobacco use disorder ?F17.200 - Nicotine dependence, unspecified, uncomplicated (ICD-10) Tension headache ?G44.209 - Tension-type headache, unspecified, not intractable (ICD-10) Post-traumatic subdural hematoma ?S06.5X9A - Traumatic subdural hemorrhage with loss of consciousness of unspecified duration, initial encounter (ICD-10) Meniere's disease (2009) ?H81.09 - Meniere's disease, unspecified ear (ICD-10) Irritable bowel syndrome ?K58.9 - Irritable bowel syndrome without diarrhea (ICD-10) Insomnia ?G47.00 - Insomnia, unspecified (ICD-10) History of fracture of ankle (2010) ?Z87.81 - Personal history of (healed) traumatic fracture (ICD-10) Gastroesophageal reflux disease ?K21.9 - Gastro-esophageal reflux disease without esophagitis (ICD-10) Fibromyalgia ?M79.7 - Fibromyalgia (ICD-10) Concussion ?S06.0X9A - Concussion with loss of consciousness of unspecified duration, initial encounter (ICD-10) Closed head injury with brief loss of consciousness ?S06.9X9A - Unspecified intracranial injury with loss of consciousness of unspecified duration, initial encounter (ICD-10) Anxiety disorder ?F41.9 - Anxiety disorder, unspecified (ICD-10) Acne vulgaris (04/01/13) ?L70.0 - Acne vulgaris (ICD-10) Surgical History History of vaginal delivery History of cholecystectomy ?Z90.49 - Acquired absence of other specified parts of digestive tract (ICD-10) Family History Family/Other Breast cancer, Onset Age: 40 Endometriosis Sister Depression Diabetes Fibromyalgia Migraine headache Aunt Diabetes Endometriosis Stroke Father Family history of early CAD, Onset Age: 39 Paternal Grandmother Family history of early CAD, Onset Age: 64 Mother Fibromyalgia Thyroid disease Maternal Grandmother Colon cancer, Onset Age: 55 Social History Narrative: Exercises daily, run, bike etc , 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, 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), 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 Non-smoker, 7-10 pack years Rarely consumes alcohol, 1-2/month What is your current living situation?: I presently have a place to live Problems where you live: no known problems In the past 12 months, utilities in danger of being shut off: no In the past 12 mos, have been you worried that your food would run out before you had money to buy more?: declined to answer In the past 12 mos, the food you bought just didn't last and you didn't have money to buy more?: never true Smoking Status: Former smoker How often does anyone, including family, friends and others, physically hurt you: How often does anyone, including family, friends and others, insult or talk down to you: How often does anyone, including family, friends and others, threaten you with harm: How often does anyone, including family, friends and others, scream or curse at you: Health Related Social Needs: Other personal risk factors, not elsewhere classified (Z91.89) Exam Narrative: Exam Narrative: Vital signs reviewed In general, alert, nontoxic and age woman. She looks comfortable. Head: Normocephalic, atraumatic. Eyes: Sclera clear. Pupils equal and reactive. She has nystagmus on leftward gaze, extraocular movements create some vertigo for her. ENT: Mucous membranes moist. Neck: Supple without adenopathy. Heart: Regular rate and rhythm without murmur. Lungs: Clear. No increased work of breathing, crackles or wheezes. Abdomen: Soft, nontender to palpation. Extremities: Well perfused, pulses intact. No significant edema. Neurologic: Alert, conversant. Speech fluent, face symmetric. Moves all extremities equally. Cerebellar function intact by finger-nose testing. Gait is stable. Skin: Warm, dry well perfused. Affect: Normal. Const: Vital Signs, click to edit/add: Vital Signs - 24 hr 05/16/25 09:32 Temperature 97.9 F Pulse Rate [Pulse Oximeter] 78 Respiratory Rate 16 Blood Pressure [Ri ght Upper Arm] 116/76 Pulse Oximetry 97 Oxygen Delivery Me thod Room Air Course Course ED Course: Patient presents with mild balance problems for several weeks. Her exam is benign, my suspicion for intracranial event such as stroke or hemorrhage is extraordinarily low. She does have headaches although they sound to be somewhat typical for her. Nonetheless, will do CT scan just to look for anything that might be creating mass effect in terms of CPA tumor, if that looks normal would recommend follow-up with ENT for further evaluation, physical therapy may be helpful. She has tried meclizine at home which has not been very helpful. She just as soon not take anything if she does not half to, so will just continue with supportive care until she is seen in follow-up. By my review, head CT is unremarkable. Read as negative by Radiology. I made an appointment for her with Laurie in ENT for Friday. She is comfortable with that plan. Discussed that further evaluation may be indicated based on their evaluation, but for today I think it is reasonable to let her go home. Vital Signs Vital signs: Initial Vital Signs Temperature 97.9 F 05/16/25 09:32 Temperature Source Temporal Artery Scan 05/16/25 09:32 Pulse Rate 78 05/16/25 09:32 Respiratory Rate 16 05/16/25 09:32 Blood Pressure 116/76 05/16/25 09:32 Blood Pressure Mean 89 05/16/25 09:32 Blood Pressure Position Sitting 05/16/25 09:32 Pulse Oximetry 97 05/16/25 09:32 Oxygen Delivery Method Room Air 05/16/25 09:32 Vital Signs Temperature 97.9 F 05/16/25 09:32 Pulse Rate 78 05/16/25 09:32 Respiratory Rate 16 05/16/25 09:32 Blood Pressure 116/76 05/16/25 09:32 Pulse Oximetry 97 05/16/25 09:32 Oxygen Delivery Method Room Air 05/16/25 09:32 Temperature 97.9 F 05/16/25 09:32 Pulse Rate 78 05/16/25 09:32 Respiratory Rate 16 05/16/25 09:32 Blood Pressure 116/76 05/16/25 09:32 Pulse Oximetry 97 05/16/25 09:32 Oxygen Delivery Method Room Air 05/16/25 09:32 Medical Decision Making Imaging Data CT scan - head: Attestation: I have reviewed the pertinent imaging results. Radiologist's impression: Patient: Harika Roach MR#: [id number] : 1980 Acct:[id number] Loc: ED Service Date: 05/16/[address]: Ordering Physician: Naomie Apple M.D. Date of Service: 05/16/25 Procedure(s): CT head/brain wo con Accession Number(s): [id number] cc: Naomie Apple M.D.; Benedict Haider M.D.~ For Patients: As a result of the Century Cures Act, medical imaging exams and procedure reports are released immediately into your electronic medical record. You may view this report before your referring provider. If you have questions, please contact your health care provider. INDICATION: Dizziness x2 weeks, getting worse TECHNIQUE: Noncontrast axial CT of the head. Coronal and sagittal reformats. Bone and soft tissue algorithms. COMPARISON: MRI brain 08/02/2022 FINDINGS: The ventricles and cortical sulci appear age-appropriate. No midline shift or mass effect. No acute intracranial hemorrhage or extra-axial fluid collection. Lema-white matter differentiation is grossly maintained. White matter attenuation is within normal limits. Intracranial vessels are unremarkable for technique. Midline structures are unremarkable. The calvarium appears grossly intact. Leftward nasal septal deviation with bone spur encroaching upon the left nasal wall and deforming the left inferior turbinate. Clear paranasal sinuses and mastoid air cells.. Unremarkable orbits. IMPRESSION: 1. No CT evidence of acute intracranial abnormality. Please note that all CT scans at this facility use dose modulation, iterative reconstruction, and/or weight-based dosing when appropriate to reduce radiation dose to as low as reasonably achievable. Dictated by Annalisa Pagan MD @ 05/16/2025 12:27:34 PM Discharge Plan Discharge Clinical Impression: Difficulty balancing Patient Disposition: Home, Self-Care Condition: Stable Additional Instructions: I would recommend that we have you follow-up in ENT clinic, to see Brett Sullivan. I made you an appointment for Friday at 9:30 a.m. in the morning, in [facility], to have an audiology appointment and then the Laurie. If you are worse in the meantime, you can always return to the emergency department. Prescriptions: No Action multivitamin [Daily Multi-Vitamin] Tablet 1 tab PO QDAY levothyroxine 88 mcg tablet 88 mcg PO QDAY Qty: 90 1RF eszopiclone [Lunesta] 3 mg tablet 3 mg PO QHS Qty: 30 5RF Follow Up/Referrals: Benedict Haider MD [Primary Care Provider, Family Practice] Stand Alone Forms: [employer] Info Instructions
== END 2025-05-16 12:56 | disposition home or self-care (01) ==
PROVIDERS: Emergency Provider Emergency Medicine; PCP Family Medicine
DX: R26.81 Unsteadiness on feet (principal); R42 Dizziness and giddiness
CPT/HCPCS: 70450; 99284

== ENCOUNTER 2025-07-13 10:30 | Outpatient (RCR) | payer MEDICAID, SELFPAY | END 2025-07-13 12:55 | disposition home or self-care (01) | PROVIDERS: PCP Family Medicine; Visit Provider Physician Assistant | DX: R42 Dizziness and giddiness (principal); Z51.89 Encounter for other specified aftercare | CPT/HCPCS: 95992; 97140; 97162; 97535 ==